=== PATIENT | male | born 1935 | race Caucasian/White ===

== ENCOUNTER 2016-04-08 00:01 | Outpatient (RCR) ==
[2014-09-27 06:50] VITALS: BMI 34.3
[2016-05-08 08:56] VITALS: BP 118/64
== END 2016-05-08 ==
LOC: CAR.REHAB 00:01
PROVIDERS: ATTEND Internal Medicine
DX: I25.10 Atherosclerotic heart disease of native coronary artery without angina pectoris (principal)
CPT/HCPCS: 93797

== ENCOUNTER 2016-05-09 07:20 | Outpatient (RCR) ==
[2014-09-27 06:50] VITALS: BMI 34.3
[2016-06-05 14:26] VITALS: BP 142/60
== END 2016-06-05 ==
LOC: CAR.REHAB 07:20
PROVIDERS: ATTEND Internal Medicine
DX: I25.10 Atherosclerotic heart disease of native coronary artery without angina pectoris (principal)
CPT/HCPCS: 93797

== ENCOUNTER 2016-06-06 09:18 | Outpatient (RCR) ==
[2014-09-27 06:50] VITALS: BMI 34.3
[2016-07-05 08:59] VITALS: BP 128/62
== END 2016-07-06 ==
LOC: CAR.REHAB 09:18
PROVIDERS: ATTEND Internal Medicine
DX: I25.10 Atherosclerotic heart disease of native coronary artery without angina pectoris (principal)
CPT/HCPCS: 93797

== ENCOUNTER 2016-07-07 07:00 | Outpatient (RCR) ==
[2014-09-27 06:50] VITALS: BMI 34.3
[2016-08-02 08:46] VITALS: BP 148/76
== END 2016-08-05 ==
LOC: CAR.REHAB 07:00
PROVIDERS: ATTEND Internal Medicine
DX: I25.10 Atherosclerotic heart disease of native coronary artery without angina pectoris (principal)
CPT/HCPCS: 93797

== ENCOUNTER 2016-08-06 08:53 | Outpatient (RCR) ==
[2014-09-27 06:50] VITALS: BMI 34.3
[2016-09-04 08:46] VITALS: BP 130/64
== END 2016-09-05 ==
LOC: CAR.REHAB 08:53
PROVIDERS: ATTEND Internal Medicine
DX: I25.10 Atherosclerotic heart disease of native coronary artery without angina pectoris (principal)
CPT/HCPCS: 93797

== ENCOUNTER 2016-09-06 06:38 | Outpatient (RCR) ==
[2014-09-27 06:50] VITALS: BMI 34.3
[2016-10-04 08:39] VITALS: BP 122/56
== END 2016-10-05 ==
LOC: CAR.REHAB 06:38
PROVIDERS: ATTEND Internal Medicine
DX: I25.10 Atherosclerotic heart disease of native coronary artery without angina pectoris (principal)
CPT/HCPCS: 93797

== ENCOUNTER 2016-10-08 07:34 | Outpatient (RCR) ==
[2014-09-27 06:50] VITALS: BMI 34.3
[2016-11-01 08:46] VITALS: BP 124/60
== END 2016-11-05 ==
LOC: CAR.REHAB 07:34
PROVIDERS: ATTEND Internal Medicine
DX: I25.10 Atherosclerotic heart disease of native coronary artery without angina pectoris (principal)
CPT/HCPCS: 93797

== ENCOUNTER 2016-11-06 06:43 | Outpatient (RCR) ==
[2014-09-27 06:50] VITALS: BMI 34.3
[2016-12-06 08:57] VITALS: BP 128/50
== END 2016-12-06 ==
LOC: CAR.REHAB 06:43
PROVIDERS: ATTEND Internal Medicine
DX: I25.10 Atherosclerotic heart disease of native coronary artery without angina pectoris (principal)
CPT/HCPCS: 93797

== ENCOUNTER 2016-12-07 08:24 | Outpatient (RCR) ==
[2014-09-27 06:50] VITALS: BMI 34.3
[2017-01-03 09:23] VITALS: BP 118/54
== END 2017-01-05 ==
LOC: CAR.REHAB 08:24
PROVIDERS: ATTEND Internal Medicine
DX: I25.10 Atherosclerotic heart disease of native coronary artery without angina pectoris (principal)
CPT/HCPCS: 93797

== ENCOUNTER 2016-12-18 07:28 | Day surgery (SDC) ==
[2014-09-27 06:50] VITALS: BMI 34.3
[2016-12-18] MEDS ORDERED: VERSED ONE (09:45)
[2016-12-18] MEDS ORDERED: DIPRIVAN 20 ML VIAL IVP ONE (09:45)
[2016-12-18 14:13] VITALS: BP 190/89; TEMP 96.1
--- NOTE | 2016-12-18 15:43 | OP ---
INDICATIONS FOR PROCEDURE: 81-year-old gentleman presents for endoscopy, evaluation of dysphagia. He has intermittent dysphagia mostly to solid foods. MEDICATIONS: SEE ANESTHESIA NOTES. PROCEDURE: ENDOSCOPY, ESOPHAGEAL BIOPSY, [place] DILATATION. REPORT: The risks, benefits, alternatives and limitations were discussed in detail with the patient. Informed consent was obtained. After adequate sedation was achieved, the video endoscope was introduced in the posterior pharynx and esophagus under direct vision and easily advanced down to the second portion of the duodenum. I then slowly withdrew. The duodenal mucosa appeared unremarkable as did the duodenal bulb. The antrum and body were relatively unremarkable. The scope was retroflexed to look at the cardia and fundus which was unremarkable. The scope was anteflexed and withdrawn back through the esophagus. At the GE junction there was some scarring and mild to moderate stricturing. Biopsies were obtained from the GE junction for histological review. The remaining esophagus appeared unremarkable. I then advanced the scope back down the gastric lumen, I placed a guidewire. Over the guidewire I easily advanced a 54 [place] Prydeinig dilator. The entire esophagus was dilated. I met no resistance. The patient tolerated the procedure well with stable vital signs and pulse oximetry throughout. IMPRESSION: 1. DISTAL ESOPHAGEAL STRICTURE DILATED ABOVE. RECOMMENDATIONS: 1. Await esophageal biopsies. 2. Strict reflux precautions. 3. Advised him to make sure he cuts and chews his food well and eats slowly. He should also drink plenty of fluids with his medications. 4. Will see him back in the office as needed. CC: DR. DELROY CHILDRESS
== END 2016-12-18 11:35 | disposition home or self-care (01) ==
LOC: SURG 07:28
PROVIDERS: ATTEND Internal Medicine Gastroenterology
DX: R13.10 Dysphagia, unspecified (principal); D13.1 Benign neoplasm of stomach; K22.2 Esophageal obstruction; K21.0 Gastro-esophageal reflux disease with esophagitis

== ENCOUNTER 2017-02-06 07:35 | Outpatient (RCR) ==
[2014-09-27 06:50] VITALS: BMI 34.3
[2017-03-07 09:01] VITALS: BP 124/66
== END 2017-03-07 ==
LOC: CAR.REHAB 07:35
PROVIDERS: ATTEND Internal Medicine
DX: I25.10 Atherosclerotic heart disease of native coronary artery without angina pectoris (principal)
CPT/HCPCS: 93797

== ENCOUNTER 2017-02-28 16:45 | Emergency (ER) ==
[2017-02-28] MEDS ORDERED: TETANUS DIPHTHERIA TOXOIDS IM ONE (16:48)
[2017-02-28 16:51] VITALS: BP 179/97; TEMP 98.1; BMI 32.9
--- NOTE | 2017-02-28 17:17 | CT ---
EXAM: CT head without contrast. HISTORY: Fall. PROCEDURE: Contiguous axial CT images of the head without contrast with coronal and sagittal reforma ts. FINDINGS: There is diffuse cerebral atrophy. The ventricles and basal cisterns are normal in size a nd configuration. No evidence of mass or midline shift. No intracranial hemorrhage or evidence of l arge vessel infarct. No extra-axial fluid collection. There are chronic small vessel ischemic oden es in the white matter. The paranasal sinuses and mastoid air cells are well-aerated. There is a fro ntal scalp hematoma. No skull fracture. Impression: No intracranial hemorrhage or skull fracture. Frontal scalp hematoma. Chronic small vessel ischemic changes. Diffuse cerebral atrophy.
--- NOTE | 2017-02-28 17:21 | CT ---
EXAM: CT of the face and orbits without contrast. HISTORY: Fall. PROCEDURE: Contiguous axial CT images of the face and orbits without contrast with coronal and sagit tavo reformats. FINDINGS: The bones are intact with no evidence of fracture. The temporomandibular joints are mainta ined. The orbits are normal in appearance. The globes are intact and symmetric. No post-septal abno rmality. There is a frontal scalp hematoma. There is minimal mucosal thickening in the paranasal sin uses. Impression: No evidence of fracture. Frontal scalp hematoma. Paranasal sinusitis.
--- NOTE | 2017-02-28 17:34 | ED.PDOC ---
General ED Provider: Dr. PRAMOD MOSQUEDA-ER Chief Complaint: Fall Stated Complaint: i tripped over a stool Time Seen by Physician: 16:50 Mode of Arrival: Walk-In Information Source: Patient Exam Limitations: No limitations Primary Care Provider: KALYAN POTTS Nursing and Triage Documentation Reviewed and Agree: Yes Skin Complaint Exam - Skin/Soft Tissue Complaint/Exam Onset/Duration: 30 min ago Symptoms Are: Still present Initial Severity: Mild Current Severity: Mild Location: face Character: Reports: Painful Aggravating: Reports: None Alleviating: Reports: None Associated Signs and Symptoms: Reports: Bruising, Tenderness. Denies: Fever, Chills, Itching, Drainage, Red streaks, Joint swelling Related History: Reports: Recent trauma Related Surgical History: Reports: None Recent Exposure to Others w/Similar Symptoms: No Skin Findings: Present: Other Joint Tenderness Present: No Differential Diagnoses: Other Review of Systems - Review Of Systems Constitutional: Reports: No symptoms Eyes: Reports: No symptoms Ears, Nose, Mouth, Throat: Reports: No symptoms Respiratory: Reports: No symptoms Cardiac: Reports: No symptoms GI: Reports: No symptoms : Reports: No symptoms Musculoskeletal: Reports: No symptoms Skin: Reports: Bruising, Other Neurological: Reports: No symptoms Endocrine: Reports: No symptoms Hematologic/Lymphatic: Reports: No symptoms All Other Systems: Reviewed and Negative Past Medical History - Past Medical History Previously Healthy: Yes Endocrine: Reports: Dyslipidemia Cardiovascular: Reports: CAD, Hypertension Respiratory: Reports: None Hematological: Reports: None Gastrointestinal: Reports: None Genitourinary: Reports: None Neuro/Psych: Reports: None Musculoskeletal: Reports: Other Cancer: Reports: None - Surgical History General Surgical History: Reports: CABG - Family History Family History: Reports: Unknown - Social History Smoking Status: Former smoker Hx Substance Use: No Alcohol Screening: Occasionally - Immunizations Tetanus Shot up to Date: No Physical Exam - Physical Exam Appearance: Well-appearing, No pain distress, Well-nourished Pain Distress: Mild Eyes: MARIA ISABEL ENT: Ears normal, Nose normal, Oropharynx normal Neck: Supple Respiratory: Airway patent, Breath sounds clear, Breath sounds equal, Respirations nonlabored Cardiovascular: RRR, Pulses normal, No rub, No murmur GI/: Soft, Nontender, No masses, Bowel sounds normal, No Organomegaly Musculoskeletal: Normal strength, ROM intact, No edema, No calf tenderness Skin: Warm, Dry, Normal color (noted abrasions over face ) Neurological: Sensation intact, Motor intact, Reflexes intact, Cranial nerves intact, Alert, Oriented Psychiatric: Affect appropriate, Mood appropriate Interpretation - Radiology Interpretation Radiology Interpretation By: Radiologist Radiology Results: Negative Exam Interpreted: CT Scan Critical Care Note - Critical Care Note Total Time (mins): 0 Course - Course Orders, Labs, Meds: Orders Category Date Time Status Mupirocin [Bactroban] MEDS 02/28/17 17:38 Stat 1 applic TP ONCE STA Tetanus, Diphtheria Tox,Adult [Tetanus Diphtheria MEDS 02/28/17 16:48 Discontinued Toxoids] 0.5 ml IM .ONCE ONE CT CERVICAL SPINE W/O CONTRAST Stat RADS 02/28/17 16:[address] HEAD W/O CONTRAST Stat RADS 02/28/17 16:[address] MAXILLOFACIAL W/O CONTRAST Stat RADS 02/28/17 16:47 Completed Medications Discontinued Medications Generic Name Dose Route Start Last Admin Trade Name Freq PRN Reason Stop Dose Admin Tetanus/Diphtheria Toxoids 0.5 ml 02/28/17 16:48 02/28/17 17:14 Tetanus Diphtheria Toxoids IM 02/28/17 16:49 0.5 ml .ONCE ONE Administration Vital Signs: Temp Pulse Resp BP Pulse Ox 02/28/17 16:46 98.1 F 80 20 179/97 H 93 L Departure - Departure Time of Disposition: 17:39 Disposition: HOME SELF-CARE Discharge Problem: Multiple contusions Abrasion head Qualifiers: Encounter type: initial encounter Qualified Code(s): S00.91XA - Abrasion of unspecified part of head, initial encounter Instructions: Abrasion (ED) Condition: Good Pt referred to PMD for follow-up: Yes Additional Instructions: keep clean and dry--bactroban ointment apply bid till healed-- Allergies/Adverse Reactions: Allergies No Known Allergies Allergy (Verified 02/28/17 16:53) Home Medications: Ambulatory Orders Clopidogrel Bisulfate [Plavix] 75 mg PO DAILY 06/15/13 Fenofibrate [Tricor] 160 mg PO DAILY 06/15/13 Isosorbide Dinitrate 30 mg PO QID 06/15/13 Aspirin [Aspirin EC] 325 mg PO DAILYWM 09/27/14 Cilostazol 50 mg PO BID 09/27/14 Pravastatin Sodium [Pravachol] 80 mg PO DAILY 09/27/14 Valsartan [Diovan] 40 mg PO DAILY 09/27/14 Carvedilol [Coreg] 12.5 mg PO BID 12/18/16 Metoprolol Tartrate [Lopressor] 100 mg PO DAILY 12/18/16 [place]-3 Fatty Acids/Fish Oil [Fish Oil 1,000 mg Capsule] 2 cap PO BID 12/18/16 Disposition Discussed With: Patient, Family
--- NOTE | 2017-02-28 17:37 | CT ---
EXAM: CT of the cervical spine without contrast. HISTORY: Fall. PROCEDURE: Contiguous axial CT images of the cervical spine without contrast with coronal and sagitt al reformats. FINDINGS: There is 0.25 cm anterolisthesis of C4 on C5. There is normal alignment of the other cervi khadar vertebral bodies and facets. The vertebral body heights are maintained. There is multilevel dis c space narrowing. There are small posterior osteophytes at multiple levels of the cervical spine. There is multilevel facet arthropathy. The C1-2 relationship is maintained. No prevertebral soft ti ssue abnormality. Impression: No evidence of fracture. 0.25 cm anterolisthesis of C4 on C5 secondary to facet arthropathy. Multilevel degenerative changes as described.
[2017-02-28] MEDS ORDERED: BACTROBAN TP STA (17:38)
[2017-02-28] MEDS ORDERED: BACTROBAN OINTMENT 1 GRAM APPLICATOR TP ONE (17:43)
== END 2017-02-28 17:50 | disposition home or self-care (01) ==
LOC: ED 16:45
DX: S00.91XA Abrasion of unspecified part of head, initial encounter (principal); S00.83XA Contusion of other part of head, initial encounter; W22.8XXA Striking against or struck by other objects, initial encounter
CPT/HCPCS: 90471; 90714; 99283

== ENCOUNTER 2017-03-08 07:08 | Outpatient (RCR) ==
[2017-04-04 08:51] VITALS: BP 138/56
== END 2017-04-07 ==
LOC: CAR.REHAB 07:08
PROVIDERS: ATTEND Internal Medicine
DX: I25.10 Atherosclerotic heart disease of native coronary artery without angina pectoris (principal)
CPT/HCPCS: 93797

== ENCOUNTER 2017-04-09 06:44 | Outpatient (RCR) ==
[2017-05-02 08:57] VITALS: BP 122/60
== END 2017-05-08 ==
LOC: CAR.REHAB 06:44
PROVIDERS: ATTEND Internal Medicine
DX: I25.10 Atherosclerotic heart disease of native coronary artery without angina pectoris (principal)
CPT/HCPCS: 93797

== ENCOUNTER 2017-05-09 06:44 | Outpatient (RCR) ==
[2017-06-04 08:59] VITALS: BP 132/68
== END 2017-06-05 ==
LOC: CAR.REHAB 06:44
PROVIDERS: ATTEND Internal Medicine
DX: I25.10 Atherosclerotic heart disease of native coronary artery without angina pectoris (principal)
CPT/HCPCS: 93797

== ENCOUNTER 2017-06-06 06:35 | Outpatient (RCR) ==
[2017-07-04 08:55] VITALS: BP 122/64
== END 2017-07-06 ==
LOC: CAR.REHAB 06:35
PROVIDERS: ATTEND Internal Medicine
DX: I25.10 Atherosclerotic heart disease of native coronary artery without angina pectoris (principal)
CPT/HCPCS: 93797

== ENCOUNTER 2017-06-11 06:30 | Outpatient (CLI) | END 2017-06-11 06:31 | disposition home or self-care (01) | LOC: CAR 06:30 | PROVIDERS: ATTEND Internal Medicine | DX: R06.02 Shortness of breath (principal); I25.10 Atherosclerotic heart disease of native coronary artery without angina pectoris; I25.2 Old myocardial infarction | CPT/HCPCS: 93005; 93010 ==

== ENCOUNTER 2017-06-19 10:30 | Outpatient (CLI) | END 2017-06-19 10:31 | disposition home or self-care (01) | LOC: CAR 10:30 | PROVIDERS: ATTEND Internal Medicine | DX: I35.0 Nonrheumatic aortic (valve) stenosis (principal); I25.10 Atherosclerotic heart disease of native coronary artery without angina pectoris ==

== ENCOUNTER 2017-07-08 08:32 | Outpatient (RCR) ==
[2017-08-01 08:22] VITALS: BP 118/58
== END 2017-08-05 23:59 ==
LOC: OUTPT 08:32
PROVIDERS: ATTEND Internal Medicine
DX: I25.10 Atherosclerotic heart disease of native coronary artery without angina pectoris (principal)
CPT/HCPCS: 93797

== ENCOUNTER 2017-08-06 06:48 | Outpatient (RCR) ==
[2017-08-29 08:55] VITALS: BP 122/58
[2017-09-03 10:06] VITALS: BMI 34.4
== END 2017-09-05 23:59 ==
LOC: CAR.REHAB 06:48
PROVIDERS: ATTEND Internal Medicine
DX: I25.10 Atherosclerotic heart disease of native coronary artery without angina pectoris (principal)
CPT/HCPCS: 93797

== ENCOUNTER 2017-08-15 09:10 | Outpatient (CLI) | END 2017-08-15 09:11 | disposition home or self-care (01) | LOC: CAR 09:10 | PROVIDERS: ATTEND Internal Medicine | DX: I48.92 Unspecified atrial flutter (principal); Z95.1 Presence of aortocoronary bypass graft | CPT/HCPCS: 93005; 93010; 93227 ==

== ENCOUNTER 2017-09-03 09:20 | Inpatient (IN) | payer OTHER ==
[2017-09-03 10:06] VITALS: BMI 34.4
[2017-09-03] MEDS ORDERED: ATROPINE SULFATE PFS IVP PRN (10:08)
[2017-09-03] MEDS ORDERED: VISTARIL INJ IM PRN (10:08)
[2017-09-03] MEDS ORDERED: NITROSTAT SL PRN (10:08)
[2017-09-03] MEDS ORDERED: TYLENOL PO PRN (10:08)
[2017-09-03] MEDS ORDERED: MORPHINE 4 MG/ML VIAL IVP PRN (10:08)
[2017-09-03] MEDS ORDERED: NON-FORMULARY MEDICATION (Isosorbide Dinitrate [Isosorbide Dinitrate] 30 MG) PO SCH (11:00)
[2017-09-03] MEDS: LASIX IVP SCH (11:37)
[2017-09-03] MEDS: K-DUR PO SCH (11:37)
[2017-09-03] MEDS: OMEGA-3 FISH OIL PO SCH ×2 (11:37→17:19)
[2017-09-03] MEDS ORDERED: NON-FORMULARY MEDICATION (Omega-3 Fatty Acids/Fish Oil [Fish Oil 1,000 Mg Capsule] 1 CAP) PO SCH (12:00)
[2017-09-03] MEDS: IMDUR PO SCH ×3 (12:12→21:37)
--- NOTE | 2017-09-03 13:39 | DI ---
EXAM: Single view of the chest. History: Short of breath Comparison: Chest radiograph 06/28/2013, chest CT 09/27/2014 Findings: Heart is mildly enlarged. Sternotomy wires again seen. No focal consolidation. No appre ciable pleural fluid and no pneumothorax. No acute osseous abnormalities. Impression: Mild cardiomegaly without acute disease in the chest. No change compared to the prior s tudy.
[2017-09-03] MEDS: COREG PO SCH (17:20)
[2017-09-03] MEDS ORDERED: CILOSTAZOL 50 MG PO SCH (21:00)
[2017-09-03] MEDS: PLETAL PO SCH (21:37)
[2017-09-03] MEDS: ELIQUIS PO SCH (21:38)
[2017-09-04] MEDS: LASIX IVP SCH (06:04)
[2017-09-04] MEDS ORDERED: NON-FORMULARY MEDICATION (Metoprolol Tartrate [Lopressor] 100 MG) PO SCH (09:00)
[2017-09-04] MEDS ORDERED: NON-FORMULARY MEDICATION (Pravastatin Sodium [Pravachol] 80 MG) PO SCH (09:00)
[2017-09-04] MEDS ORDERED: VALSARTAN 40 MG PO SCH (09:00)
[2017-09-04] MEDS ORDERED: DIOVAN PO SCH (09:00)
[2017-09-04] MEDS: IMDUR PO SCH ×4 (09:24→20:38)
[2017-09-04] MEDS: K-DUR PO SCH (09:24)
[2017-09-04] MEDS: COREG PO SCH ×2 (09:24→17:55)
[2017-09-04] MEDS: PRAVACHOL PO SCH (09:24)
[2017-09-04] MEDS: LOPRESSOR PO SCH (09:25)
[2017-09-04] MEDS: PLETAL PO SCH ×2 (09:25→20:39)
[2017-09-04] MEDS: TRIGLIDE PO SCH (09:26)
[2017-09-04] MEDS: ELIQUIS PO SCH ×2 (09:27→20:40)
[2017-09-04] MEDS: DIOVAN PO SCH (09:39)
[2017-09-04] MEDS: OMEGA-3 FISH OIL PO SCH ×2 (12:21→16:20)
--- NOTE | 2017-09-04 14:05 | PCM.PROG ---
Attending Provider: ATTENDING PROVIDER: Dr. KALYAN POTTS This patient is seen with Charlene Weeks, Nurse Practitioner. DATE OF SERVICE: 09/04/17 SUBJECTIVE: This 82 year old WHITE/ M was hospitalized 09/03/17. The patient is sitting in the chair, alert. He is down 5 lbs from yesterday. Leg edema improved. Less shortness of breath. REVIEW OF SYSTEMS: CONSTITUTIONAL: No night sweats. No fatigue, malaise, lethargy. No fever or chills. HEENT: Eyes: No visual changes. No eye pain. No eye discharge. ENT: No runny nose. No epistaxis. No sinus pain. No odynophagia. No congestion. RESPIRATORY: No cough, no congestion. No hemoptysis. Shortness of breath with exertion. CARDIOVASCULAR: No angina symptoms. No CHF symptoms. No atypical chest pain for CAD. No palpitations. No orthopnea.. GASTROINTESTINAL: No abdominal pain. No nausea or vomiting. No diarrhea or constipation. No hematemesis. No hematochezia. GENITOURINARY: No urgency. No frequency. No dysuria. No hematuria. No obstructive symptoms. No discharge. No pain. No significant abnormal bleeding. MUSCULOSKELETAL: Leg edema. No musculoskeletal pain; no joint swelling. NEUROLOGICAL: Awake, alert, oriented to time, place and person. No headache. No neck pain. No syncope. No seizures. No dizziness. PSYCHIATRIC: Not anxious. No depression. No suicidal thoughts. No homicidal thoughts. SKIN: No rash. No lesions. No wounds. ENDOCRINE: Weight loss of 5 lbs. HEMATOLOGIC/LYMPHATIC: No anemia. No purpura. No petechiae. No prolonged or excessive bleeding. No palpable lymph nodes. PHYSICAL EXAMINATION: GENERAL: The patient is awake, alert and oriented, lying in bed in no distress. VITAL SIGNS: Temperature 97.9 F, Pulse 72, Respiratory Rate 20, BP 155/82, Pulse Ox 93% HEENT: Head normocephalic, atraumatic. Eyes: Extraocular muscles are intact. Pupils are equal, round and reactive to light and accommodation. Ears: No lesions. Nose appeared normal. Throat: No exudate or erythema. NECK: Supple. No JVD, no carotid bruit. No lymphadenopathy or thyromegaly. LUNGS: Diminished breath sounds. Clear to auscultation. Percussion note normal. Chest symmetrical. HEART: Irregular heart rate. S1, S2, no S3. No murmurs. No cyanosis or clubbing. No ascites. Pulses: Dorsalis pedis and posterior tibial pulses +1 to +2 both sides. ABDOMEN: Soft. Non-tender. Bowel sounds active. No CVA tenderness. No mass felt. EXTREMITIES: +1 bilateral leg edema. Full range of motion of all extremities, equal. NEUROLOGIC: No focal deficit. Cranial nerves II through XII are grossly intact. No headache, no double vision or headache. SKIN: Not dry. Intact. Turgor-normal. LYMPHATIC: No palpable lymph nodes/no lymphedema. MUSCULOSKELETAL: Normal joints with no swelling. Muscle tone is normal. LAB REVIEW: 09/03/17 10:50 09/03/17 10:50 09/03/17 18:36: Total Creatine Kinase 61, Troponin I < 0.0100 09/03/17 11:30: Urine Color Yellow, Urine Clarity Clear, Urine pH 7.0, Ur Specific [place] 1.010, Urine Protein Negative, Urine Glucose (UA) Negative, Urine Ketones Negative, Urine Blood Negative, Urine Nitrite Negative, Urine Bilirubin Negative, Urine Urobilinogen 0.2, Ur Leukocyte Esterase Negative 09/03/17 10:50: Sodium 136, Potassium 4.9, Chloride 103, Carbon Dioxide 24, Anion Gap 13.9, BUN 11, Creatinine 1.14 H, Estimated GFR (MDRD) 62.00, BUN/ Creatinine Ratio 9.64, Glucose 100, Calcium 9.3, Total Bilirubin 0.6, AST 27, ALT 19, Alkaline Phosphatase 34 L, Total Creatine Kinase 63, Troponin I < 0.0100 , Total Protein 6.1, Albumin 3.2 L, Globulin 2.9, Albumin/Globulin Ratio 1.10, TSH 3.913, Free T4 1.00 09/03/17 10:50: WBC 4.54, RBC 3.64 L, Hgb 11.1 L, Hct 34.3 L, MCV 94.2 H, MCH 30.5, MCHC 32.4, RDW Coeff of Yaritza 14.3, Plt Count 209, Immature Gran % (Auto) 0.2, Neut % (Auto) 55.4, Lymph % (Auto) 20.9, [place] % (Auto) 16.5 H, Eos % (Auto ) 6.6, Baso % (Auto) 0.4, Immature Gran # (Auto) 0.0, Neut # (Auto) 2.5, Lymph # (Auto) 1.0, [place] # (Auto) 0.8, Eos # (Auto) 0.3, Baso # (Auto) 0.0 09/03/17 10:50: B-Natriuretic Peptide 466 H ASSESSMENT: 1. ACUTE CHF 2. LEG EDEMA 3. ATRIAL FIB/FLUTTER 4. CORONARY ARTERY DISEASE 5. HYPERTENSION 6. OBESITY PLAN: 1. CBC, CMP today 2. IV Lasix today 3. Elevate legs Plan and coordination of the patient's care discussed in the presence of Forklift Truck Operator and nurse. CONDITION: Stable SCRIBED BY: Sarah Beth GARBERist scribed while in presence of service performed by Dr. Potts/Charlene Weeks APRN on 09/04/17 ([id number])
[2017-09-05] MEDS: LASIX IVP SCH (05:42)
--- NOTE | 2017-09-05 09:37 | CM.DICTOOL ---
ADMISSION: 09/03/17 09:20 DISCHARGE: 09/05/17 FINAL DIAGNOSIS CHF A-FIB/A/FLUTTER LEG EDEMA HISTORY OF: CATARACT SURGERY - DATES UNKNOWN DYSLIPIDEMIA HYPERTENSION AMI - 89 BYPASS SURGERY 20 YEARS AGO OSTEOARTHRITIS AAA REPAIR - DATE UNKNOWN LEVEF 45% CKD STAGE 3 LVH GERD PAD WITH CLAUDICATION LAST VITALS Temp Pulse Resp BP Pulse Ox 98.2 F 84 20 144/97 H 96 09/05/17 05:29 09/05/17 05:29 09/05/17 05:29 09/05/17 05:29 09/05/17 05:29 TAKE THESE MEDICATIONS AT HOME Acetaminophen (Tylenol) 650 mg PO Q4H PRN PRN Reason: Headache Apixaban (Eliquis) 5 mg PO BID [facility] Last Admin: 09/04/17 20:40 Dose: 5 mg Carvedilol (Coreg) 12.5 mg PO BIDWM [facility] Last Admin: 09/04/17 17:55 Dose: 12.5 mg Cilostazol (Pletal) 50 mg PO BID [facility] Last Admin: 09/04/17 20:39 Dose: 50 mg Fenofibrate (Triglide) 160 mg PO DAILY [facility] Last Admin: 09/04/17 09:26 Dose: 160 mg Fish Oil ([place]-3 Fish Oil) 1,000 mg PO 1200,1700 [facility] Last Admin: 09/04/17 16:20 Dose: 1,000 mg Furosemide (Lasix) 20 mg IVP QDAC [facility] Last Admin: 09/05/17 05:42 Dose: 20 mg Isosorbide Mononitrate (Imdur) 30 mg PO QID [facility] Last Admin: 09/04/17 20:38 Dose: 30 mg Metoprolol Tartrate (Lopressor) 100 mg PO DAILY [facility] Last Admin: 09/04/17 09:25 Dose: 100 mg Potassium Chloride (K-Dur) 20 meq PO DAILYWM [facility] Last Admin: 09/04/17 09:24 Dose: 20 meq Pravastatin Sodium (Pravachol) 80 mg PO DAILY [facility] Last Admin: 09/04/17 09:24 Dose: 80 mg Valsartan (Diovan) 40 mg PO DAILY [facility] Last Admin: 09/04/17 09:39 Dose: 40 mg LASIX 20MG PO DAILY K-TAB 10MEQ PO DAILY NEW MEDICATIONS: 1. LASIX 20MG TAKE 1 TABLET DAILY. START TOMORROW 09/06/17. 2. K-TAB 10MEQ TAKE 1 TABLET DAILY. START TOMORROW 09/06/17. ALLERGIES No Known Allergies Allergy (Verified 02/28/17 16:53) DISCONTINUED MEDICATIONS NONE NEW PRESCRIPTIONS: 1. LASIX 20MG TAKE 1 TABLET DAILY. START TOMORROW 09/06/17. 2. K-TAB 10MEQ TAKE 1 TABLET DAILY. START TOMORROW 09/06/17. SMOKING: N/A DISEASE SPECIFIC EDUCATION: CHF WEIGHT MONITORING MEDICATIONS DIET ACTIVITY LAB REVIEW: 09/05/17 04:45 09/05/17 04:45 09/05/17 04:45: Sodium 138, Potassium 4.4, Chloride 101, Carbon Dioxide 24, Anion Gap 17.4, BUN 15, Creatinine 1.24 H, Estimated GFR (MDRD) 56.00, BUN/ Creatinine Ratio 12.09, Glucose 91, Calcium 10.1, Total Bilirubin 0.7, AST 27, ALT 19, Alkaline Phosphatase 36 L, Total Protein 6.8, Albumin 3.3 L, Globulin 3.5, Albumin/Globulin Ratio 0.94 09/05/17 04:45: WBC 4.92, RBC 3.91 L, Hgb 11.8 L, Hct 36.5 L, MCV 93.4, MCH 30.2 , MCHC 32.3, RDW Coeff of Yaritza 14.1, Plt Count 258, Immature Gran % (Auto) 0.2, Neut % (Auto) 48.0, Lymph % (Auto) 27.2, [place] % (Auto) 16.9 H, Eos % (Auto) 6.9 , Baso % (Auto) 0.8, Immature Gran # (Auto) 0.0, Neut # (Auto) 2.4, Lymph # ( Auto) 1.3, [place] # (Auto) 0.8, Eos # (Auto) 0.3, Baso # (Auto) 0.0 PLAN: CONTINUE HOME MEDICATIONS PER NURSING SHEET. NEW MEDICATIONS: 1. LASIX 20MG TAKE 1 TABLET DAILY. START TOMORROW 09/06/17. 2. K-TAB 10MEQ TAKE 1 TABLET DAILY. START TOMORROW 09/06/17. DIET: CARDIAC DIET ACTIVITY: GRADUALLY RESUME ACTIVITY. ELEVATE LEGS MUCH POSSIBLE. WATCH FOR INCREASED SWELLING IN LEGS. WEIGH DAILY WEARING THE SAME AMOUNT OF CLOTHING AND AT THE SAME TIME OF DAY. KEEP RECORD. FOR WEIGHT GAIN OF 3-5 POUNDS IN 1 DAY, CALL DR. POTTS. FOLLOW UP WITH DR. POTTS ON SaturdaySeptember AT 915AM. PATIENT IS A DNR. SITTING UP IN CHAIR. ALERT AND ORIENTED X 4. More. PASCUAL ROMERO INTO SEE PATIENT. PATIENT'S SPOUSE AND SON AT BEDSIDE. PATIENT STATES FEELING BETTER AND READY TO GO HOME. PLAN OF CARE DISCUSSED PER Deysi GARNER APRN. PATIENT VERBALIZES UNDERSTANDING AND AGREEMENT. BLOOD PRESSURE SLIGHTLY ELEVATED THIS AM. DENIES HEADACHE OR DISCOMFORT. HAS BEEN AFEBRILE. POX 96% ON ROOM AIR. HEART TONES ARE IRREGULAR WITH TELEMETRY REVEALING A-FIB VS A-FLUTTER AND A-FIB WITH BBB. NO C/ O PAIN OR DISCOMFORT. LUNGS ARE CLEAR. NO COUGH NOTED. DYSPNEA WITH ACTIVITY. ABDOMEN IS SOFT, NON-TENDER WITH BOWEL SOUNDS POSITIVE IN ALL 4 QUADS. PEDAL PULSES WITHOUT EDEMA. HAS SALINE LOCK IN LEFT HAND SITE IS CLEAR. IS INDEPENDENT WITH ACTIVITY OF DAILY LIVING. DR. KALYAN POTTS MD Deysi GARNER APRN
[2017-09-05] MEDS: PRAVACHOL PO SCH (09:40)
[2017-09-05] MEDS: COREG PO SCH (09:40)
[2017-09-05] MEDS: TRIGLIDE PO SCH (09:40)
[2017-09-05] MEDS: PLETAL PO SCH (09:41)
[2017-09-05] MEDS: DIOVAN PO SCH (09:41)
[2017-09-05] MEDS: LOPRESSOR PO SCH (09:41)
[2017-09-05] MEDS: K-DUR PO SCH (09:41)
[2017-09-05] MEDS: ELIQUIS PO SCH (09:42)
[2017-09-05] MEDS: IMDUR PO SCH (09:42)
[2017-09-05 10:37] VITALS: BP 115/66; TEMP 97.3
--- NOTE | 2017-09-05 11:20 | HP ---
DATE OF SERVICE: 09/03/17 REASON FOR HOSPITALIZATION/HISTORY OF PRESENT ILLNESS: Weight gain 10 pounds in 2-3 weeks. Shortness of breath with minimal exertion x 2 weeks. Leg edema x2 weeks. No symptoms of coronary insufficiency. PAST MEDICAL HISTORY: Dyslipidemia Hypertension Osteoarthritis Chronic kidney disease LVH GERD PAD with Claudication PAST SURGICAL HISTORY: Cardiac Stents AAA repair Cataract surgery REVIEW OF SYSTEMS: CONSTITUTIONAL: No fever, no fatigue. HEENT: No sinus drainage, no sore throat. RESPIRATORY: No cough, no congestion. CARDIOVASCULAR: No atypical chest pain for coronary artery disease. No angina , CHF symptoms, palpitations or shortness of breath. GASTROINTESTINAL: No melena or abdominal pain. No GERD. GENITOURINARY: No hematuria, no prostatism, no polyuria. COSMETIC SURGEON: No blackout, no dizziness, no headache, no double vision. MUSCULOSKELETAL: No osteoarthritis pain, no joint swelling. ENDOCRINE: No weight loss, no weight gain. SKIN: Not dry, no rash. PSYCHIATRIC: Not anxious, no depression, no suicidal thoughts, no homicidal thoughts. SOCIAL HISTORY: Marital Status: . Alcohol Usage: No. Tobacco Usage: No. FAMILY HISTORY: Cardiac disorders MEDICATIONS: Eliquis 5mg PO twice a day Coreg 12.5mg twice daily Imdur 30 four times daily Diovan 40mg PO daily Fenofibrate 160mg PO daily Pravastatin 80mg PO daily Pletal 50mg PO twice a day Fish Oil 1000 take two tablet twice a day ALLERGIES: No known allergies PHYSICAL EXAMINATION: V/S: Pulse 70, blood pressure 120/70, pulse ox 93.7%. 5'6", 216.2 pounds, BMI 34.9 GENERAL APPEARANCE: Oriented times three. HEENT: Normal. NECK: 1cm JVP, no bruits. RESPIRATORY: Creps right base CARDIOVASCULAR: S1, S2, questionable S3, no murmurs. No cyanosis, clubbing. No ascites. GI/ABDOMEN: No tenderness. Bowel sounds are active. EXTREMITIES: +2 pitting edema, pulses +1, equal. COSMETIC SURGEON: Deep tendon reflexes, sensory, motor and gait all normal. RECTAL: EGD 12/18/16/PROSTATE: 10/22 (0.2) . LABS: Sodium 136, potassium 4.9, BUN 11, creatinine 1.14, glucose 100, GFR 62, total bilirubin 0.68, AST 27, ALT 19, total protein 6.1, Albumin 3.2, Globulin 2.9, Free T4 1, TSH 3.9. Chest x-ray shows mild cardiomegaly without acute disease. No change compared to prior stay. Urine is normal, BNP 446, WBC 4.5, hgb 11.1, hct 34.3, plt count 209. ASSESSMENT: 1. CHF 2. Atrial flutter new onset 3 weeks 3. CAD with [place] 87 4. CABG 2000/ ejection fraction 45% 07/23 5. PAD with claudication 6. Chronic kidney disease stage 3 7. LVH 8. Dyslipidemia 9. History of hypertension 10.GERD 11.Generalized Osteoarthritis PLAN: 1. Regular 2. Routine Telemetry orders 3. Elevate legs 4. Daily weigh her 5. Lasix 20mg Iv now and QAM 6. K tab 20meq Po daily 7. BNP, T4 TSH 8. Continue all home medications 9. Off Plavix and ASA TIME SPENT: More than 70 minutes. MTDD
--- NOTE | 2017-09-05 13:02 | PCM.PROG ---
Attending Provider: ATTENDING PROVIDER: Dr. KALYAN POTTS This patient is seen with Charlene Weeks, Nurse Practitioner. DATE OF SERVICE: 09/05/17 SUBJECTIVE: This 82 year old WHITE/ M was hospitalized 09/03/17. The patient is sitting in chair, alert. He is no longer short of breath. Leg edema has resolved. He has been up and about walking around. He is eating well, states he is ready to go home. REVIEW OF SYSTEMS: CONSTITUTIONAL: No night sweats. No fatigue, malaise, lethargy. No fever or chills. HEENT: Eyes: No visual changes. No eye pain. No eye discharge. ENT: No runny nose. No epistaxis. No sinus pain. No odynophagia. No congestion. RESPIRATORY: No cough, no congestion. No hemoptysis. No shortness of breath. CARDIOVASCULAR: No angina symptoms. No CHF symptoms. No atypical chest pain for CAD. No palpitations. No orthopnea.. GASTROINTESTINAL: No abdominal pain. No nausea or vomiting. No diarrhea or constipation. No hematemesis. No hematochezia. GENITOURINARY: No urgency. No frequency. No dysuria. No hematuria. No obstructive symptoms. No discharge. No pain. No significant abnormal bleeding. MUSCULOSKELETAL: No musculoskeletal pain; no joint swelling. NEUROLOGICAL: Awake, alert, oriented to time, place and person. No headache. No neck pain. No syncope. No seizures. No dizziness. PSYCHIATRIC: Not anxious. No depression. No suicidal thoughts. No homicidal thoughts. SKIN: No rash. No lesions. No wounds. ENDOCRINE: No unexplained weight loss. No weight gain. HEMATOLOGIC/LYMPHATIC: No anemia. No purpura. No petechiae. No prolonged or excessive bleeding. No palpable lymph nodes. PHYSICAL EXAMINATION: GENERAL: The patient is awake, alert and oriented, sitting in chair in no distress. VITAL SIGNS: Temperature 98.2 F, Pulse 84, Respiratory Rate 20, BP 144/97, Pulse Ox 96% HEENT: Head normocephalic, atraumatic. Eyes: Extraocular muscles are intact. Pupils are equal, round and reactive to light and accommodation. Ears: No lesions. Nose appeared normal. Throat: No exudate or erythema. NECK: Supple. No JVD, no carotid bruit. No lymphadenopathy or thyromegaly. LUNGS: Diminished breath sounds bilaterally. Clear to auscultation. Percussion note normal. Chest symmetrical. HEART: Regular heart rate. S1, S2, no S3. No murmurs. No cyanosis or clubbing. No ascites. Pulses: Dorsalis pedis and posterior tibial pulses +1 to +2 both sides. ABDOMEN: Soft. Non-tender. Bowel sounds active. No CVA tenderness. No mass felt. EXTREMITIES: No edema. Full range of motion of all extremities, equal. NEUROLOGIC: No focal deficit. Cranial nerves II through XII are grossly intact. No headache, no double vision or headache. SKIN: Not dry. Intact. Turgor-normal. LYMPHATIC: No palpable lymph nodes/no lymphedema. MUSCULOSKELETAL: Normal joints with no swelling. Muscle tone is normal. LAB REVIEW: 09/05/17 04:45 09/05/17 04:45 09/05/17 04:45: Sodium 138, Potassium 4.4, Chloride 101, Carbon Dioxide 24, Anion Gap 17.4, BUN 15, Creatinine 1.24 H, Estimated GFR (MDRD) 56.00, BUN/ Creatinine Ratio 12.09, Glucose 91, Calcium 10.1, Total Bilirubin 0.7, AST 27, ALT 19, Alkaline Phosphatase 36 L, Total Protein 6.8, Albumin 3.3 L, Globulin 3.5, Albumin/Globulin Ratio 0.94 09/05/17 04:45: WBC 4.92, RBC 3.91 L, Hgb 11.8 L, Hct 36.5 L, MCV 93.4, MCH 30.2 , MCHC 32.3, RDW Coeff of Yaritza 14.1, Plt Count 258, Immature Gran % (Auto) 0.2, Neut % (Auto) 48.0, Lymph % (Auto) 27.2, [place] % (Auto) 16.9 H, Eos % (Auto) 6.9 , Baso % (Auto) 0.8, Immature Gran # (Auto) 0.0, Neut # (Auto) 2.4, Lymph # ( Auto) 1.3, [place] # (Auto) 0.8, Eos # (Auto) 0.3, Baso # (Auto) 0.0 09/04/17 08:30: Sodium 138, Potassium 4.6, Chloride 100, Carbon Dioxide 27, Anion Gap 15.6, BUN 10, Creatinine 1.18 H, Estimated GFR (MDRD) 59.00, BUN/ Creatinine Ratio 8.47, Glucose 95, Calcium 10.1, Total Bilirubin 0.8, AST 26, ALT 20, Alkaline Phosphatase 37 L, Total Protein 6.6, Albumin 3.4, Globulin 3.2 , Albumin/Globulin Ratio 1.06 09/04/17 08:30: WBC 5.05, RBC 3.85 L, Hgb 11.8 L, Hct 36.1 L, MCV 93.8, MCH 30.6 , MCHC 32.7, RDW Coeff of Yaritza 14.3, Plt Count 237, Immature Gran % (Auto) 0.2, Neut % (Auto) 57.7, Lymph % (Auto) 19.6, [place] % (Auto) 15.8 H, Eos % (Auto) 6.1 , Baso % (Auto) 0.6, Immature Gran # (Auto) 0.0, Neut # (Auto) 2.9, Lymph # ( Auto) 1.0, [place] # (Auto) 0.8, Eos # (Auto) 0.3, Baso # (Auto) 0.0 ASSESSMENT: 1. ACUTE CHF 2. LEG EDEMA, RESOLVED 3. ATRIAL FIB/FLUTTER 4. CORONARY ARTERY DISEASE 5. HYPERTENSION 6. OBESITY PLAN: 1. Lasix 20 mg p.o. tomorrow 2. D/C IV Lasix 3. Potassium 10 mEq tomorrow 4. Possible d/c today 5. CHF discussed in detail with the patient, low salt diet, keep legs elevated at rest, continue cardiac rehabilitation. The patient voiced understanding. Plan and coordination of the patient's care discussed in the presence of Tubing Tester and nurse. CONDITION: Stable SCRIBED BY: BECKY BUTLER Digital Content Specialist scribed while in presence of service performed by Dr. Potts/Charlene Weeks APRN on 09/05/17 ([id number])
--- NOTE | 2017-09-06 14:19 | PN ---
DATE OF VISIT: 09/04/17 Kenny Ho was seen examined with the nurse practitioner. The patient's condition is improved. He has lost a lot of fluid from breathing better. Less shortness of breath. The patient likely has fluid overload with congestive heart failure. I explained about congestive heart failure and the was in the room. PHYSICAL EXAMINATION: LUNGS: Decreased breath sounds. Good air entry. HEART: S1, S2, no S3. No JVP. CONDITION: Stable. Congestive heart failure education carried out. Extensive. ANNIKAD
--- NOTE | 2017-09-06 14:22 | PN ---
DATE OF VISIT: 09/05/17 Kenny Ho was hospitalized with congestive heart failure. The patient has lost 10 pounds. He is breathing better. No symptoms of CHF. The patient was seen and examined with the nurse practitioner. The patient was discharged home with Lasix and Potassium. FIOR
--- NOTE | 2017-09-06 14:24 | PN ---
09/03/17 LEVEL 5 09/04/17 INTERMEDIATE 09/05/17 DISCHARGE MTDD
--- NOTE | 2017-09-07 10:46 | DS ---
DATE OF SERVICE: 09/05/17 FINAL DIAGNOSIS: 1. CHF 2. ATRIAL FIBRILLATION/FLUTTER 3. LEG EDEMA 4. HISTORY OF CATARACT SURGERY, DATES UNKNOWN 5. DYSLIPIDEMIA 6. HYPERTENSION 7. AMI - 89 8. BYPASS SURGERY 20 YEARS AGO 9. OSTEOARTHRITIS 10. AAA REPAIR - DATE UNKNOWN 11. LEVEF 45% 12. CKD STAGE 3 13. LVH 14. GERD 15. PAD WITH CLAUDICATION DISCHARGE INSTRUCTIONS: Followup appointment with Dr. Jackson on September at 9:15 a.m.. MEDICATIONS AT DISCHARGE: Tylenol 650 mg p.o. q.4h p.r.n. Eliquis 5 mg p.o. b.i.d. LUKE Coreg 12.5 mg p.o.b.i.d. with meal LUKE Pletal 50 mg p.o. b.i.d. LUKE Triglide 160 mg p.o. daily LUKE Fish Oil 1000 mg p.o. 1200, 1700 LUKE Lasix 20 mg IVP q.d a.c. LUKE Imdur 30 mg p.o. q.i.d. LUKE Lopressor 100 mg p.o. daily LUKE K-Dur 20 mEq p.o. daily with meal LUKE Pravachol 80 mg p.o. daily LUKE Diovan 40 mg p.o. daily LUKE Lasix 20 mg p.o. daily K-Tab 10 mEq p.o. daily NEW PRESCRIPTIONS: Lasix 20 mg one tablet daily, start tomorrow 09/06/17 K-Tab 10 mEq one tablet daily, start tomorrow 09/06/17 DIET INSTRUCTIONS: Cardiac diet ACTIVITY: Gradually resume activity. Elevate legs as much as possible. Watch for increased swelling in legs. Weigh daily wearing the same amount of clothing and at the same time of day, keep record. For weight gain of 3 to 5 lbs in one day, call Dr. Jackson. SMOKING: N/A DISEASE SPECIFIC EDUCATION: CHF Weight monitoring Medications Diet Activity HOSPITAL COURSE: This is an 82-year-old white male with a long history of coronary artery disease who was seen in our office. He had coronary artery bypass about 20 years ago and also has a history of atrial fibrillation/flutter. He has been on Eliquis for some time. He presented to our office with worsening shortness of breath and leg edema. He was subsequently admitted for acute CHF, leg edema and shortness of breath. He was started on Lasix 20 mg IV daily as he has not been taking any Lasix at home and has been managed without diuretics. During his stay he has lost approximately 7 lbs. His leg edema has resolved. For the past 24 hours he has been up and and about walking around on his own without any shortness of breath. He does not require any oxygen this morning. His labs have all been good. Today on day of discharge, BUN 15, creatinine 1.24, sodium 138, potassium 12.4, hemoglobin 11.8, hematocrit 36.5, white count 4.92. He routinely does maintenance cardiac rehab and has been well-maintained with this for quite some time. All of his medications remained unchanged with exception that we will send him home on Lasix 20 mg p.o. daily along with potassium 10 mEq daily. otherwise his blood pressure has been controlled. He recently had an echo done in the past few months. We have discussed in detail about CHF, monitoring for weight gain, decreasing his salt, elevating his legs while sitting. He is to report a weight gain of greater than 3 lbs in one day. We have also discussed him drinking plenty of water with his Lasix this summer as he does like to get outside. He has been in stable condition. We will discharge him home in stable condition and he will followup with us next week. Medications have been reviewed again today on day of discharge. He has received IV Lasix yesterday morning and the day before. This morning he received p.o. Lasix. Again his leg edema has resolved. His lung sounds are clear yet diminished which is normal for him. His telemetry has revealed that he has been in atrial fibrillation vs flutter off and on. He is stable, not short of breath, no dizziness. We will followup with him next week. SPECIFIC ORDERS: The patient is DNR TIME SPENT: More than 60 minutes. FIOR
== END 2017-09-05 10:28 | disposition home or self-care (01) | DRG 292 ==
LOC: MEDSURG B 09:20
PROVIDERS: ADMIT Internal Medicine; ATTEND Internal Medicine
DX: I50.9 Heart failure, unspecified (principal); I48.92 Unspecified atrial flutter; I48.91 Unspecified atrial fibrillation; I73.9 Peripheral vascular disease, unspecified; R06.02 Shortness of breath; I10 Essential (primary) hypertension; I25.2 Old myocardial infarction; I12.9 Hypertensive chronic kidney disease with stage 1 through stage 4 chronic kidney disease, or unspecified chronic kidney disease; N18.3 Chronic kidney disease, stage 3 (moderate); E66.9 Obesity, unspecified; K21.9 Gastro-esophageal reflux disease without esophagitis; E78.5 Hyperlipidemia, unspecified; M19.90 Unspecified osteoarthritis, unspecified site; Z79.01 Long term (current) use of anticoagulants; Z95.1 Presence of aortocoronary bypass graft
CPT/HCPCS: 36415; 80053; 81001; 82550; 83880; 84439; 84443; 84484; 85025; 93005; 93010

== ENCOUNTER 2017-09-06 08:34 | Outpatient (RCR) ==
[2017-10-03 08:59] VITALS: BP 114/56
== END 2017-10-05 23:59 ==
LOC: CAR.REHAB 08:34
PROVIDERS: ATTEND Internal Medicine
DX: I25.10 Atherosclerotic heart disease of native coronary artery without angina pectoris (principal)
CPT/HCPCS: 93797

== ENCOUNTER 2017-10-07 07:27 | Outpatient (RCR) ==
[2017-10-31 08:46] VITALS: BP 120/54
== END 2017-11-05 23:59 ==
LOC: CAR.REHAB 07:27
PROVIDERS: ATTEND Internal Medicine
DX: I25.10 Atherosclerotic heart disease of native coronary artery without angina pectoris (principal); Z95.5 Presence of coronary angioplasty implant and graft
CPT/HCPCS: 93797

== ENCOUNTER 2017-11-06 07:02 | Outpatient (RCR) ==
[2017-12-03 08:55] VITALS: BP 130/64
== END 2017-12-06 23:59 ==
LOC: CAR.REHAB 07:02
PROVIDERS: ATTEND Internal Medicine
DX: I25.10 Atherosclerotic heart disease of native coronary artery without angina pectoris (principal); Z95.5 Presence of coronary angioplasty implant and graft
CPT/HCPCS: 93797

== ENCOUNTER 2017-12-10 06:49 | Outpatient (RCR) ==
[2018-01-02 08:59] VITALS: BP 118/62
== END 2018-01-05 23:59 ==
LOC: CAR.REHAB 06:49
PROVIDERS: ATTEND Internal Medicine
DX: I25.10 Atherosclerotic heart disease of native coronary artery without angina pectoris (principal); Z95.5 Presence of coronary angioplasty implant and graft
CPT/HCPCS: 93797

== ENCOUNTER 2018-01-06 08:09 | Outpatient (RCR) ==
[2018-01-30 08:54] VITALS: BP 114/58
== END 2018-02-05 23:59 ==
LOC: CAR.REHAB 08:09
PROVIDERS: ATTEND Internal Medicine
DX: I25.10 Atherosclerotic heart disease of native coronary artery without angina pectoris (principal); Z95.5 Presence of coronary angioplasty implant and graft
CPT/HCPCS: 93797

== ENCOUNTER 2018-03-10 07:48 | Outpatient (RCR) ==
[2018-03-27 08:53] VITALS: BP 110/54
== END 2018-04-07 23:59 ==
LOC: CAR.REHAB 07:48
PROVIDERS: ATTEND Internal Medicine
DX: I25.10 Atherosclerotic heart disease of native coronary artery without angina pectoris (principal); Z95.5 Presence of coronary angioplasty implant and graft
CPT/HCPCS: 93797

== ENCOUNTER 2018-04-09 07:37 | Outpatient (RCR) ==
[2018-05-08 08:53] VITALS: BP 108/54
== END 2018-05-08 23:59 ==
LOC: CAR.REHAB 07:37
PROVIDERS: ATTEND Internal Medicine
DX: I25.10 Atherosclerotic heart disease of native coronary artery without angina pectoris (principal); Z95.5 Presence of coronary angioplasty implant and graft
CPT/HCPCS: 93797

== ENCOUNTER 2018-05-09 07:03 | Outpatient (RCR) ==
[2018-06-05 08:55] VITALS: BP 126/52
== END 2018-06-05 23:59 ==
LOC: CAR.REHAB 07:03
PROVIDERS: ATTEND Internal Medicine
DX: I25.10 Atherosclerotic heart disease of native coronary artery without angina pectoris (principal); Z95.5 Presence of coronary angioplasty implant and graft
CPT/HCPCS: 93797

== ENCOUNTER 2018-05-27 06:45 | Outpatient (CLI) ==
--- NOTE | 2018-05-28 10:47 | ECHO2D ---
Date of Exam: 05/27/18 Ordering Physician: DR. KALYAN POTTS Room #: OP Reason for Echo: SOB, PLEURITIC PAIN, CABG, AORTIC STENOSIS Murmurs: SYSTOLIC M-Mode Normal Adult Results LV Dimensions Normal Adult Results AoV Opening excursions >1.6 1.2 LVEDD-base- 3.5-5.8 5.5 Ao root dimensions 2.0-3.7 2.8 LVESD-base- 3.1-4.6 L. Atrium dimensions 1.9-3.8 5.4 Post. Wall thickness 0.8-1.1 1.2 IV septum (thickness) 0.7-1.2 1.4 Post. Wall excursion 0.72-1.3 0.9 Septal motion 0.6 Systolic motion R. Ventricular cavity 1.5-2.0 NORMAL LVEF 60% 45% Paradoxical septal wall motion NORMAL 2-D : HYPOKINETIC SEPTAL WALL, ENLARGED LEFT ATRIAL CAVITY, CALCIFIC AORTIC STENOSIS, NO EFFUSION, NO THROMBUS, NORMAL LEFT VENTRICLE CAVITY M-MODE: MV: NORMAL AV: CALCIFIC AORTIC STENOSIS VALVE AREA 0.8 TV: NORMAL PV: CHAMBER SIZE: ENLARGED LEFT ATRIAL CAVITY WALL MOTION: HYPOKINETIC SEPTUM PERICARDIUM: NORMAL INTERPRETATION: 1. LEFT VENTRICULAR HYPERTROPHY WITH ENLARGED LEFT ATRIAL CAVITY 2. CALCIFIC AORTIC STENOSIS-VALVE AREA 0.8 CM (MODERATE TO SEVERE) 3. HYPOKINETIC SEPTAL WALL MTDD
== END 2018-05-27 06:46 | disposition home or self-care (01) ==
LOC: CAR 06:45
PROVIDERS: ATTEND Internal Medicine
DX: R06.02 Shortness of breath (principal); R07.81 Pleurodynia
CPT/HCPCS: 93005; 93010

== ENCOUNTER 2018-06-06 07:02 | Outpatient (RCR) ==
[2018-07-03 08:59] VITALS: BP 116/58
== END 2018-07-06 23:59 ==
LOC: CAR.REHAB 07:02
PROVIDERS: ATTEND Internal Medicine
DX: I25.10 Atherosclerotic heart disease of native coronary artery without angina pectoris (principal); Z95.5 Presence of coronary angioplasty implant and graft
CPT/HCPCS: 93797

== ENCOUNTER 2018-07-07 09:28 | Outpatient (RCR) ==
[2018-08-05 08:47] VITALS: BP 110/50
== END 2018-08-05 23:59 ==
LOC: CAR.REHAB 09:28
PROVIDERS: ATTEND Internal Medicine
DX: I25.10 Atherosclerotic heart disease of native coronary artery without angina pectoris (principal); Z95.5 Presence of coronary angioplasty implant and graft
CPT/HCPCS: 93797

== ENCOUNTER 2018-08-06 07:22 | Outpatient (RCR) ==
[2018-09-04 08:48] VITALS: BP 108/54
== END 2018-09-05 23:59 ==
LOC: CAR.REHAB 07:22
PROVIDERS: ATTEND Internal Medicine
DX: I25.10 Atherosclerotic heart disease of native coronary artery without angina pectoris (principal); Z95.5 Presence of coronary angioplasty implant and graft
CPT/HCPCS: 93797

== ENCOUNTER 2018-09-16 10:00 | Inpatient (IN) ==
[2018-09-16] MEDS ORDERED: TYLENOL PO PRN (10:20)
[2018-09-16] MEDS ORDERED: ATROPINE SULFATE PFS IVP PRN (10:20)
[2018-09-16] MEDS ORDERED: VISTARIL INJ IM PRN (10:20)
[2018-09-16] MEDS ORDERED: NITROSTAT SL PRN (10:20)
[2018-09-16] MEDS ORDERED: DECADRON 4 MG/ML SDV IM STA (10:21)
[2018-09-16] MEDS: ALDACTONE PO SCH (10:58)
[2018-09-16] MEDS: LASIX IVP SCH (10:59)
[2018-09-16 11:02] VITALS: BMI 33.6
--- NOTE | 2018-09-16 11:16 | DI ---
EXAM: Single view of the chest. History: Short of breath Comparison: Chest radiograph 09/03/2017 Findings: Heart is enlarged. Sternotomy wires. Early interstitial edema and trace bilateral pleura l effusions. No pneumothorax. No acute osseous abnormalities. Impression: Mild cardiomegaly with early interstitial edema and trace bilateral pleural effusions
[2018-09-16] MEDS ORDERED: NON-FORMULARY MEDICATION (Omega-3 Fatty Acids/Fish Oil [Fish Oil 1,000 Mg Capsule] 1 CAP) PO SCH (12:00)
[2018-09-16] MEDS: OMEGA-3 FISH OIL PO SCH ×2 (13:27→17:11)
[2018-09-16] MEDS: COREG PO SCH (17:11)
[2018-09-16] MEDS: PLETAL PO SCH (20:17)
[2018-09-16] MEDS: ELIQUIS PO SCH (20:18)
[2018-09-16] MEDS ORDERED: ELIQUIS PO SCH (21:00)
[2018-09-17] MEDS: LASIX IVP SCH (05:51)
[2018-09-17] MEDS ORDERED: ASPIRIN EC PO SCH (08:00)
[2018-09-17] MEDS ORDERED: DECADRON 4 MG/ML SDV IVP STA (08:29)
--- NOTE | 2018-09-17 08:42 | PCM.PROG ---
Attending Provider: ATTENDING PROVIDER: Dr. KLAYAN POTTS DATE OF SERVICE: 09/17/18 SUBJECTIVE: This 83 year old WHITE/ M was hospitalized 09/16/18 with fluid retention, symptoms of CHF and also increased episodes of angina. feeling better breathing better REVIEW OF SYSTEMS: CONSTITUTIONAL: No night sweats. No fatigue, malaise, lethargy. No fever or chills. Feeling better. HEENT: Eyes: No visual changes. No eye pain. No eye discharge. ENT: No runny nose. No epistaxis. No sinus pain. No odynophagia. No congestion. RESPIRATORY: No cough, no congestion. No hemoptysis. No shortness of breath. Breathing better. CARDIOVASCULAR: No angina symptoms. No CHF symptoms. No atypical chest pain for CAD. No palpitations. No orthopnea.. GASTROINTESTINAL: No abdominal pain. No nausea or vomiting. No diarrhea or constipation. No hematemesis. No hematochezia. GENITOURINARY: No urgency. No frequency. No dysuria. No hematuria. No obstructive symptoms. No discharge. No pain. No significant abnormal bleeding. MUSCULOSKELETAL: No musculoskeletal pain; no joint swelling. NEUROLOGICAL: Awake, alert, oriented to time, place and person. No headache. No neck pain. No syncope. No seizures. No dizziness. PSYCHIATRIC: Not anxious. No depression. No suicidal thoughts. No homicidal thoughts. SKIN: No rash. No lesions. No wounds. ENDOCRINE: No unexplained weight loss. No weight gain. HEMATOLOGIC/LYMPHATIC: No anemia. No purpura. No petechiae. No prolonged or excessive bleeding. No palpable lymph nodes. PHYSICAL EXAMINATION: GENERAL: The patient is awake, alert and oriented to time, place and person, lying in bed in no distress. VITAL SIGNS: Temperature 97.9 F, Pulse 70, Respiratory Rate 18, BP 143/77, Pulse Ox 94% HEENT: Head normocephalic, atraumatic. Eyes: Extraocular muscles are intact. Pupils are equal, round and reactive to light and accommodation. Ears: No lesions. Nose appeared normal. Throat: No exudate or erythema. NECK: Supple. No JVD, no carotid bruit. No lymphadenopathy or thyromegaly. LUNGS: Decreased breath sounds. Clear to auscultation. Percussion note normal. Chest symmetrical. HEART: S1, S2, no S3. No murmurs. No cyanosis or clubbing. No ascites. Pulses: Dorsalis pedis and posterior tibial pulses +1 to +2 both sides. ABDOMEN: Soft. Non-tender. Bowel sounds active. No CVA tenderness. No mass felt. EXTREMITIES: +1 pitting edema. Full range of motion of all extremities, equal. NEUROLOGIC: No focal deficit. Cranial nerves II through XII are grossly intact. No headache, no double vision or headache. SKIN: Warm and dry. Intact. Turgor-normal. LYMPHATIC: No palpable lymph nodes/no lymphedema. MUSCULOSKELETAL: Normal joints with no swelling. Muscle tone is normal. LAB REVIEW: 09/17/18 05:00 09/17/18 05:00 09/17/18 05:00: Sodium 134.1 L, Potassium 4.00, Chloride 98.6, Carbon Dioxide 26.9, Anion Gap 12.60, BUN 17.0, Creatinine 0.96, Estimated GFR (MDRD) 75.00, BUN/Creatinine Ratio 17.70, Glucose 102.5, Calcium 8.91, Total Bilirubin 1.04, AST 52.3, ALT 26.6, Alkaline Phosphatase 42.4 L, Total Protein 6.42, Albumin 3.76, Globulin 2.66, Albumin/Globulin Ratio 1.41 09/17/18 05:00: WBC 5.98, RBC 3.87 L, Hgb 11.8 L, Hct 36.1 L, MCV 93.3, MCH 30.5 , MCHC 32.7, RDW Coeff of Yaritza 13.9, Plt Count 202, Immature Gran % (Auto) 0.5, Neut % (Auto) 80.7, Lymph % (Auto) 10.9, [place] % (Auto) 7.5, Eos % (Auto) 0.2, Baso % (Auto) 0.2, Immature Gran # (Auto) 0.0, Neut # (Auto) 4.8, Lymph # (Auto ) 0.7, [place] # (Auto) 0.5, Eos # (Auto) 0.0, Baso # (Auto) 0.0 09/16/18 18:30: Total Creatine Kinase 75.4, Troponin I < 0.012 09/16/18 11:30: Urine Color Yellow, Urine Clarity Clear, Urine pH 6.0, Ur Specific [place] 1.010, Urine Protein Negative, Urine Glucose (UA) Negative, Urine Ketones Negative, Urine Blood Negative, Urine Nitrite Negative, Urine Bilirubin Negative, Urine Urobilinogen 0.2, Ur Leukocyte Esterase Negative 09/16/18 10:50: Sodium 134.7, Potassium 4.56, Chloride 99.6, Carbon Dioxide 21.1 L, Anion Gap 18.56, BUN 14.3, Creatinine 0.96, Estimated GFR (MDRD) 75.00, BUN/Creatinine Ratio 14.89, Glucose 94.0, Calcium 9.12, Total Bilirubin 1.12, AST 60.2 H, ALT 27.7, Alkaline Phosphatase 38.3 L, Total Creatine Kinase 81.0, Troponin I < 0.012, NT-Pro-B Natriuret Pep 5020.000 H, Total Protein 6.72, Albumin 3.99, Globulin 2.73, Albumin/Globulin Ratio 1.46, TSH 5.930 H 09/16/18 10:50: WBC 5.58, RBC 3.96 L, Hgb 12.3 L, Hct 38.1 L, MCV 96.2 H, MCH 31.1 H, MCHC 32.3, RDW Coeff of Yaritza 14.1, Plt Count 198, Immature Gran % (Auto) 0.2, Neut % (Auto) 57.1, Lymph % (Auto) 24.4, [place] % (Auto) 12.5 H, Eos % (Auto ) 4.7, Baso % (Auto) 1.1, Immature Gran # (Auto) 0.0, Neut # (Auto) 3.2, Lymph # (Auto) 1.4, [place] # (Auto) 0.7, Eos # (Auto) 0.3, Baso # (Auto) 0.1 ASSESSMENT: Please see below. 1. CHF seems to be resolving 2. Angina is stable 3. PVCs with ventricular bigeminy type of rhythm 4. Atrial Fibrillation 5. Coronary artery disease with bypass surgery 6. Anemia 7. Hypertension PLAN: 1. Continue IV Lasix 2. Aldactone added 3. Will do daily CBC and CMP 4. Pro BNP 5,000 5. Will get echo report and consider the patient for Entresto Plan and coordination of the patient's care discussed in the presence of Pick And Shovel Man and nurse. SCRIBED BY: AURY WOODARD Online Media Buyer scribed while in presence of service performed by Dr. KALYAN POTTS on 09/17/18 ([id number])
[2018-09-17] MEDS ORDERED: VALSARTAN 40 MG PO SCH (09:00)
[2018-09-17] MEDS ORDERED: NON-FORMULARY MEDICATION (Metoprolol Tartrate [Lopressor] 100 MG) PO SCH (09:00)
[2018-09-17] MEDS ORDERED: NON-FORMULARY MEDICATION (Pravastatin Sodium [Pravachol] 80 MG) PO SCH (09:00)
[2018-09-17] MEDS: ALDACTONE PO SCH (09:25)
[2018-09-17] MEDS: PLETAL PO SCH ×2 (09:26→20:29)
[2018-09-17] MEDS: TRIGLIDE PO SCH (09:27)
[2018-09-17] MEDS: COREG PO SCH ×2 (09:27→17:21)
[2018-09-17] MEDS: PRAVACHOL PO SCH (09:27)
[2018-09-17] MEDS: LOPRESSOR PO SCH (09:28)
[2018-09-17] MEDS: DIOVAN PO SCH (09:29)
[2018-09-17] MEDS: ELIQUIS PO SCH ×2 (09:31→20:29)
--- NOTE | 2018-09-17 11:40 | RS.PTINEVL ---
Subjective - Patient information Date of Evaluation: 09/17/18 Date of Arrival on Unit: 09/16/18 Admitted From:: Home Diagnosis: CHF, angina Usual Living Arrangement: With Spouse Living Arrangement Comments: LIVES WITH SPOUSE AND SON Home Environment: House, Stairs (few), Rail Medical History: Hypertension, Arthritis Medical History Comments:: CAD, Afib, CKD Surgical History: CABG Surgical History Comments:: AAA repair Medications: see chart Subjective Information/ Patient Comments:: pt states that he feels his LE's have been getting weaker recently. States he comes for cardiac rehab at [facility]. - Level of function Prior to this admission, the patient could do the following:: Independent Selfcare, Independent ADL's, Independent Ambulation, Drive Current Level of Function: Partially Dependent Current Equipment Used at Home: NONE Interventions - Objective Patient Orientation: Person, Place, Time, Situation Current Interventions: Telemetry Observation: pt with pitting edema BLE's Range of Motion - ROM Right Upper Extremity AROM: Moderate limitation (limited shld flexion and abduction) Left Upper Extremity AROM: Moderate limitation (limited shld flexion and abduction) Right Lower Extremity AROM: WFL's Left Lower Extremity AROM: WFL's Muscle Strength - Muscle Strength Right Upper Extremity Strength: Mild Weakness (shld flex 3-/5, elbow flex/ext 4/ 5) Left Upper Extremity Strength: Mild Weakness (shld flex 3-/5, elbow flex/ext 4/5 ) Right Lower Extremity Strength: Mild Weakness (hip flex 3+/5, knee flex/ext 4-/5 , ankle DF.PF 4/5) Left Lower Extremity Strength: Mild Weakness (hip flex 3+/5, knee flex/ext 4-/5 , ankle DF.PF 4/5) Sensation - Sensation Right Upper Extremity Sensation: Intact/Normal Left Upper Extremity Sensation: Intact/Normal Right Lower Extremity Sensation: Intact/Normal Left Lower Extremity Sensation: Intact/Normal Palpation Palpation Findings: None/Normal Balance - Sitting Balance and Reactions Static Sitting Balance: Good Dynamic Sitting Balance: Good - Standing Balance and Reactions Static Standing Balance: Fair Dynamic Standing Balance: Fair Functional Mobility - Bed Mobility Comments:: pt seen sitting up in chair did not wish to return to bed - Transfers Sit to Stand: CGA Stand to Sit: CGA - Safety Awareness Safety Awareness: Fair CK INDEX SCORE: n/a Ambulation - Ambulation Assistive Device Used: Gait belt Orthotic/Prosthetic Device: No Distance: 140ft Assistance needed with Ambulation: CGA Gait Deviations: Forward posture, Short stride Ambulation Comments: pt amb with increased lat sway Factors Affecting Ambulation: Decreased Balance, Breathing/O2 Saturation, Weakness, Limited Endurance Treatment time - Units charged Gait trainin - Time with patient Length of Evaluation: 18 Total treatment time: 26 Patient Education - Education Patient Education: Activity Modification, Education of Plan of Care Teaching Recipient: Patient Teaching Methods: Discussion Comments: discussion regarding HEP Assessment - Assessment Problem List:: Decreased level of function, Requires training/education, Decreased safety/Risk of falls, Weakness Rehab Potential: Good Further Therapy Indicated?: Yes Candidate for Swing Bed for Therapy Services?: do not feel pt would be a candidate for swing bed due to higher level of function Evaluation Complexity: HISTORY: Medium, EXAM OF BODY SYSTEMS: Medium, CLINICAL PRESENTATION: Low, CLINICAL DECISION MAKING: Low Short Term Goals GOAL #1: pt transfer sup to/from sit to/from stand SBA Goal to be met by: 09/18/18 GOAL #2: pt amb 150ft SBA no LOB Goal to be met by: 09/18/18 GOAL #3: Improve dyn stand balance fair+ Goal to be met by: 09/18/18 Prison Goals GOAL #1: Improve BLE strength 4 to 4+/5 Goal to be met by: 09/20/18 GOAL #2: pt amb functional household distances SBA to independent Goal to be met by: 09/20/18 GOAL #3: pt independent with HEP Goal to be met by: 09/20/18 Plan Plan of Care: Therapeutic EX, Therapeutic Activity Other:: gait training Frequency of Treatment: 1-2 X day, as tolerated Duration of Treatment: 3-5 days Anticipated Discharge Destination: Home Treatment Diagnosis (ICD 10 Codes): impairment of balance R26.81. muscle weakness M 62.81 Has the Physician been added for Co-signature?: Yes
[2018-09-17] MEDS: OMEGA-3 FISH OIL PO SCH ×2 (17:21→17:29)
[2018-09-18] MEDS: LASIX IVP SCH (05:39)
[2018-09-18] MEDS: LOPRESSOR PO SCH (08:42)
[2018-09-18] MEDS: PLETAL PO SCH ×2 (08:42→20:54)
[2018-09-18] MEDS: PRAVACHOL PO SCH (08:43)
[2018-09-18] MEDS: DIOVAN PO SCH (08:43)
[2018-09-18] MEDS: ALDACTONE PO SCH (08:43)
[2018-09-18] MEDS: TRIGLIDE PO SCH (08:43)
[2018-09-18] MEDS: COREG PO SCH ×2 (08:43→16:29)
[2018-09-18] MEDS: ELIQUIS PO SCH ×2 (08:44→20:53)
[2018-09-18] MEDS: OMEGA-3 FISH OIL PO SCH ×2 (12:04→16:25)
--- NOTE | 2018-09-18 14:11 | PN ---
DATE OF SERVICE: 09/18/18 SUBJECTIVE: The patient was seen and examined this morning. He is breathing a lot better, he wants to go home. REVIEW OF SYSTEMS: CONSTITUTIONAL: No night sweats. No fatigue, malaise, lethargy. No fever or chills. HEENT: Eyes: No visual changes. No eye pain. No eye discharge. ENT: No runny nose. No epistaxis. No sinus pain. No sore throat. No odynophagia. No congestion. RESPIRATORY: No cough, no congestion. No hemoptysis. No shortness of breath. CARDIOVASCULAR: No angina symptoms. No CHF symptoms. No atypical chest pain for CAD. No palpitations. No PND. No orthopnea. GASTROINTESTINAL: No abdominal pain. No nausea or vomiting. No diarrhea or constipation. No hematemesis. No hematochezia. GENITOURINARY: No urgency. No frequency. No dysuria. No hematuria. No obstructive symptoms. No discharge. No pain. No significant abnormal bleeding. MUSCULOSKELETAL: No musculoskeletal pain; no joint swelling. NEUROLOGICAL: No headache. No neck pain. No syncope. No seizures. No dizziness. PSYCHIATRIC: Not anxious. No depression. No suicidal thoughts. No homicidal thoughts. SKIN: No rash. No lesions. No wounds. ENDOCRINE: No unexplained weight loss. No weight gain. HEMATOLOGIC/LYMPHATIC: No anemia. No purpura. No petechiae. No prolonged or excessive bleeding. No palpable lymph nodes. PHYSICAL EXAMINATION: GENERAL: The patient is oriented to time, place and person. HEENT: Head normocephalic, atraumatic. Eyes: Extraocular muscles are intact. Pupils are equal, round and reactive to light and accommodation. Ears: No lesions. Nose appeared normal. Throat: No exudate or erythema. NECK: Supple. No JVD, no carotid bruit. No lymphadenopathy or thyromegaly. LUNGS: Decreased breath sounds but clear to auscultation. Percussion note normal. Chest symmetrical. HEART: S1, S2, no S3. Grade I/Vi systolic ejection murmur. No cyanosis or clubbing. No ascites. Pulses: Dorsalis pedis and posterior tibial pulses +1 to +2 bilaterally. ABDOMEN: Soft. Nontender. Bowel sounds active. No CVA tenderness. No mass felt. EXTREMITIES: 1+ to +2 pitting edema it is dependant edema. Full range of motion of all extremities, equal. NEUROLOGIC: No focal deficit. Cranial nerves II through XII are grossly intact. No headache, no double vision or headache. SKIN: Not dry. Intact. Turgor - normal. LYMPHATIC: No palpable lymph nodes/no lymphedema. MUSCULOSKELETAL: Normal joints with no swelling. Muscle tone is normal. PLAN: 1. Advised to keep the legs up. 2. Continue IV Lasix 3. Will monitor for one more day. 4. The patient had ventricular bigeminy off and on yesterday and last night he had less arrhythmias. The patient has moderate aortic stenosis. He declined any further work for now. He had cardiac cath done twice in past 7-8 years. 5. We will order full echo CONDITION: Stable. TIME SPENT: More than 30 minutes. Plan and coordination of the patient's care discussed in the presence of nurse. FIOR
--- NOTE | 2018-09-18 14:43 | DI ---
EXAM: CHEST FRONTAL AND LATERAL VIEWS HISTORY: Shortness of breath. COMPARISON: 09/16/2018 FINDINGS / IMPRESSION: Stable cardiomegaly. Sternotomy wires are present. Previously seen central vascular congestion has mostly resolved. There is no consolidated pneumonia, visible pleural fluid or pneumothorax.
[2018-09-19 05:02] VITALS: BP 121/78; TEMP 98.4
[2018-09-19] MEDS: LASIX IVP SCH (05:41)
--- NOTE | 2018-09-19 08:49 | PCM.PROG ---
Attending Provider: ATTENDING PROVIDER: Dr. KALYAN POTTS This patient is seen with Charlene Weeks, Nurse Practitioner. DATE OF SERVICE: 09/19/18 SUBJECTIVE: This 83 year old WHITE/ M was hospitalized 09/16/18. The patient is resting comfortably. Shortness of breath has resolved. Kidney function has remained stable along with Potassium after starting Aldactone. He will be go home today. REVIEW OF SYSTEMS: CONSTITUTIONAL: No night sweats. No fatigue, malaise, lethargy. No fever or chills. HEENT: Eyes: No visual changes. No eye pain. No eye discharge. ENT: No runny nose. No epistaxis. No sinus pain. No odynophagia. No congestion. RESPIRATORY: No cough, no congestion. No hemoptysis. No shortness of breath. CARDIOVASCULAR: No angina symptoms. No CHF symptoms. No atypical chest pain for CAD. No palpitations. No orthopnea.. GASTROINTESTINAL: No abdominal pain. No nausea or vomiting. No diarrhea or constipation. No hematemesis. No hematochezia. GENITOURINARY: No urgency. No frequency. No dysuria. No hematuria. No obstructive symptoms. No discharge. No pain. No significant abnormal bleeding. MUSCULOSKELETAL: No musculoskeletal pain; no joint swelling. NEUROLOGICAL: Awake, alert, oriented to time, place and person. No headache. No neck pain. No syncope. No seizures. No dizziness. PSYCHIATRIC: Not anxious. No depression. No suicidal thoughts. No homicidal thoughts. SKIN: No rash. No lesions. No wounds. ENDOCRINE: No unexplained weight loss. No weight gain. HEMATOLOGIC/LYMPHATIC: No anemia. No purpura. No petechiae. No prolonged or excessive bleeding. No palpable lymph nodes. PHYSICAL EXAMINATION: GENERAL: The patient is awake, alert and oriented, lying in bed in no distress. VITAL SIGNS: Temperature 98.4 F, Pulse 63, Respiratory Rate 17, BP 121/78, Pulse Ox 95% HEENT: Head normocephalic, atraumatic. Eyes: Extraocular muscles are intact. Pupils are equal, round and reactive to light and accommodation. Ears: No lesions. Nose appeared normal. Throat: No exudate or erythema. NECK: Supple. No JVD, no carotid bruit. No lymphadenopathy or thyromegaly. LUNGS: Decreased breath sounds. Clear to auscultation. Percussion note normal. Chest symmetrical. HEART: S1, S2, no S3. No murmurs. Systolic click. No cyanosis or clubbing. No ascites. Pulses: Dorsalis pedis and posterior tibial pulses +1 to +2 both sides. ABDOMEN: Soft. Non-tender. Bowel sounds active. No CVA tenderness. No mass felt. EXTREMITIES: No edema. Full range of motion of all extremities, equal. NEUROLOGIC: No focal deficit. Cranial nerves II through XII are grossly intact. No headache, no double vision or headache. SKIN: Not dry. Intact. Turgor-normal. LYMPHATIC: No palpable lymph nodes/no lymphedema. MUSCULOSKELETAL: Normal joints with no swelling. Muscle tone is normal. LAB REVIEW: 09/19/18 05:00 09/19/18 05:00 09/19/18 05:00: Sodium 135.5, Potassium 4.29, Chloride 97.3 L, Carbon Dioxide 28.7, Anion Gap 13.79, BUN 31.3 H, Creatinine 1.28 H, Estimated GFR (MDRD) 54.00 , BUN/Creatinine Ratio 24.45, Glucose 88.7, Calcium 9.49, Total Bilirubin 0.83, AST 48.8, ALT 27.1, Alkaline Phosphatase 38.7 L, Total Protein 6.37, Albumin 3.69, Globulin 2.68, Albumin/Globulin Ratio 1.37 09/19/18 05:00: WBC 6.16, RBC 4.17 L, Hgb 13.0 L, Hct 39.0 L, MCV 93.5, MCH 31.2 H, MCHC 33.3, RDW Coeff of Yaritza 14.2, Plt Count 216, Immature Gran % (Auto) 0.3, Neut % (Auto) 50.7, Lymph % (Auto) 28.9, [place] % (Auto) 13.8 H, Eos % (Auto ) 5.0, Baso % (Auto) 1.3, Immature Gran # (Auto) 0.0, Neut # (Auto) 3.1, Lymph # (Auto) 1.8, [place] # (Auto) 0.9, Eos # (Auto) 0.3, Baso # (Auto) 0.1 09/18/18 05:00: NT-Pro-B Natriuret Pep 4100.000 H ASSESSMENT: Please see below. 1. CHF, improved 2. Coronary artery disease 3. Hypertension PLAN: 1. Discharge home 2. Continue Aldactone 25mg PO daily 3. Lasix 40mg PO daily 4. Complete Echo at [facility] 5. Referral to valve clinic Plan and coordination of the patient's care discussed in the presence of Radiochemical Technician and nurse. SCRIBED BY: Deny ANDINO scribed while in presence of service performed by Dr. Potts/Charlene Weeks APRN on 09/19/18 ([id number])
[2018-09-19] MEDS: PLETAL PO SCH (09:02)
[2018-09-19] MEDS: TRIGLIDE PO SCH (09:02)
[2018-09-19] MEDS: PRAVACHOL PO SCH (09:02)
[2018-09-19] MEDS: DIOVAN PO SCH (09:02)
[2018-09-19] MEDS: LOPRESSOR PO SCH (09:02)
[2018-09-19] MEDS: COREG PO SCH (09:03)
[2018-09-19] MEDS: ELIQUIS PO SCH (09:03)
[2018-09-19] MEDS: ALDACTONE PO SCH (09:03)
--- NOTE | 2018-09-19 09:42 | HP ---
DATE OF SERVICE: 09/16/18 REASON FOR HOSPITALIZATION/HISTORY OF PRESENT ILLNESS: The patient has weight gain, shortness of breath and angina for 4 days. He has has symptoms of CHF and coronary insufficiency. No chills or fever. The patient was in cardiac rehab this AM and talked to me. PAST MEDICAL HISTORY/PAST SURGICAL HISTORY: Arthritis pain all over, Osteoarthritis Pleuritic pain Shortness of breath CHF History of hypertension GERD Atrial fibrillation/flutter CAD with ID and CABG 2006 (45% 4-17 echo) PAD with claudication Chronic kidney disease Dyslipidemia AAA repair Dr. Jones1997 Heart Cath 2011 unchanged 2007(medical management) Cardiac stents AAA repair Cataract surgery REVIEW OF SYSTEMS: CONSTITUTIONAL: No fever, Fatigue. HEENT: Sinus drainage, no sore throat. RESPIRATORY: Cough sinuses, no congestion. CARDIOVASCULAR: No atypical chest pain for coronary artery disease. Angina, CHF symptoms and shortness of breath. No palpitations. GASTROINTESTINAL: No melena or abdominal pain. No GERD. GENITOURINARY: No hematuria, no prostatism, no polyuria. BILLER: No blackout, Dizziness, no headache, no double vision. MUSCULOSKELETAL: Osteoarthritis pain, no joint swelling. ENDOCRINE: No weight loss,Weight gain. SKIN: Not dry, no rash. PSYCHIATRIC: Anxious, no depression, no suicidal thoughts, no homicidal thoughts. SOCIAL HISTORY: Marital Status: . Alcohol Usage: No. Tobacco Usage: No. FAMILY HISTORY: Father CAD Mother CAD Brother one alive age 84, Bone cancer-CAD MEDICATIONS: K- tab 10meq PO daily Lasix 20mg PO daily Eliquis 5mg PO two times per day Coreg 12.5mg twice a day Imdur 30mg four times a day Diovan 40mg PO daily Fenofibrate 160mg PO daily Metoprolol 100mg PO daily Pravastatin 80mg PO daily Pletal 50mg PO two times per day Fish oil 1000 two tablet PO two times per day ALLERGIES: No known allergies PHYSICAL EXAMINATION: V/S: Pulse 68, blood pressure 110/60, oxygen saturation 96%. Height 5'6, weight 212.8 and BMI 34.4. GENERAL APPEARANCE: Oriented times three. HEENT: Normal. NECK: JVP 2cm, no bruits. RESPIRATORY: Creps at bases. CARDIOVASCULAR: S1, S2, S3, no murmurs. No cyanosis, clubbing. No ascites. GI/ABDOMEN: No tenderness. Bowel sounds are active. EXTREMITIES: +2 pitting edema, pulses +1, equal. BILLER: Deep tendon reflexes, sensory, motor and gait all normal. RECTAL:9-17 EGD/PROSTATE: 7-18 (0.1). ASSESSMENT: 1. CHF/Angina 2. Chronic sinusitis 3. Chronic bronchitis 4. Arthritis pain all over, Osteoarthritis 5. Pleuritic pain 6. Shortness of breath 7. CHF 8. History of hypertension 9. GERD 10.Atrial fibrillation/flutter 11.CAD with ID and CABG 2006 (45% 4-17 echo) 12.PAD with claudication 13.Chronic kidney disease 14.Dyslipidemia 15.AAA repair Dr. Jones 1996 16.Heart Cath 2011(medical management) PLAN: 1. Admit to ICU/Special Care 2. Oxygen 2 liters nasal cannula 3. Routine Telemetry orders 4. 1cc Decadron IM now 5. Lasix 40mg IV now and QAM 6. Weights daily 7. Elevate legs 8. Eliquis 5mg PO twice a day 9. Continue all medications 10.Discontinue PO Lasix 11.Aldactone 25mg PO daily and one today 12.TSH , NT PRO BNP TIME SPENT: More than 70 minutes. MTDD
--- NOTE | 2018-09-19 11:15 | CM.DICTOOL ---
ADMISSION: 09/16/18 10:00 DISCHARGE: SEPTEMBER 19, 2018 DATE OF SERVICE: 09/19/18 FINAL DIAGNOSIS CHF, IMPROVED ANGINA AFIB/AFLUTTER; ON ELIQUIS PAD W/ CLAUDICATION CAD WITH [place] 1986 CABG 2007 HTN DYSLIPIDEMIA PLEURITIC PAIN SOB BRONCHITIS GERD CKD STAGE 2 OA CHRONIC SINUSITIS AAA REPAIR 1996 CABG 2007 HEART CATH 2007 CATARACTS REMOVED ESOPHAGUS STRETCHED 2019 FORMER SMOKER ECHO 05/27: LVH W/ ENLARGED LAC. MODERATE TO SEVERE CALCIFIC AORTIC STENOSIS - VALVE AREA 0.8 CM HYPOKINECTIC SEPTAL WALL LVEF 45% PFT 05/27: MODERATE COPD LAST VITALS Temp Pulse Resp BP Pulse Ox 98.4 F 63 17 121/78 95 09/19/18 04:58 09/19/18 04:58 09/19/18 04:58 09/19/18 04:58 09/19/18 04:58 TAKE THESE MEDICATIONS AT HOME Apixaban (Eliquis) 5 mg PO BID [facility] Last Admin: 09/19/18 09:03 Dose: 5 mg Carvedilol (Coreg) 12.5 mg PO BIDWM [facility] Last Admin: 09/19/18 09:03 Dose: 12.5 mg Cilostazol (Pletal) 50 mg PO BID [facility] Last Admin: 09/19/18 09:02 Dose: 50 mg Fenofibrate (Tricor) 160 mg PO DAILY [facility] Last Admin: 09/19/18 09:02 Dose: 160 mg Fish Oil ([place]-3 Fish Oil) 1,000 mg PO 1200,1700 [facility] Last Admin: 09/18/18 16:25 Dose: 1,000 mg Furosemide (Lasix) 40 mg PO QDAC [facility] Last Admin: 09/19/18 05:41 Dose: 40 mg Metoprolol Tartrate (Lopressor) 100 mg PO DAILY [facility] Last Admin: 09/19/18 09:02 Dose: 100 mg Pravastatin Sodium (Pravachol) 80 mg PO DAILY [facility] Last Admin: 09/19/18 09:02 Dose: 80 mg Spironolactone (Aldactone) 25 mg PO DAILY [facility] Last Admin: 09/19/18 09:03 Dose: 25 mg Valsartan (Diovan) 40 mg PO DAILY [facility] Last Admin: 09/19/18 09:02 Dose: 40 mg ALLERGIES No Known Allergies Allergy (Verified 02/28/17 16:53) DISCONTINUED MEDICATIONS None NEW PRESCRIPTIONS: LASIX 40 MG DAILY ALDACTONE 25 MG DAILY SMOKING: NOT APPLICABLE DISEASE SPECIFIC EDUCATION: DIET NEW MEDICATIONS ELEVATE LEGS WEIGH DAILY APPOINTMENTS/TESTS LAB REVIEW: 09/19/18 05:00 09/19/18 05:00 09/19/18 05:00: Sodium 135.5, Potassium 4.29, Chloride 97.3 L, Carbon Dioxide 28.7, Anion Gap 13.79, BUN 31.3 H, Creatinine 1.28 H, Estimated GFR (MDRD) 54.00 , BUN/Creatinine Ratio 24.45, Glucose 88.7, Calcium 9.49, Total Bilirubin 0.83, AST 48.8, ALT 27.1, Alkaline Phosphatase 38.7 L, Total Protein 6.37, Albumin 3.69, Globulin 2.68, Albumin/Globulin Ratio 1.37 09/19/18 05:00: WBC 6.16, RBC 4.17 L, Hgb 13.0 L, Hct 39.0 L, MCV 93.5, MCH 31.2 H, MCHC 33.3, RDW Coeff of [place]aritza 14.2, Plt Count 216, Immature Gran % (Auto) 0.3, Neut % (Auto) 50.7, Lymph % (Auto) 28.9, [place] % (Auto) 13.8 H, Eos % (Auto ) 5.0, Baso % (Auto) 1.3, Immature Gran # (Auto) 0.0, Neut # (Auto) 3.1, Lymph # (Auto) 1.8, [place] # (Auto) 0.9, Eos # (Auto) 0.3, Baso # (Auto) 0.1 09/18/18 05:00: NT-Pro-B Natriuret Pep 4100.000 H PLAN: DISCHARGE HOME WITH SPOUSE DIET: HEART HEALTHY ACTIVITY: GRADUALLY RESUME TOLERATED ELEVATE LEGS ABOVE THE LEVEL OF THE HIPS WHEN IN BED AND WHEN SITTING WEIGH SELF DAILY AND NOTIFY MD OF WEIGHT GAIN OVER 2-3 POUNDS IN ONE WEEK YOU ARE SCHEDULED FOR OUTPATIENT 2D-M MODE ECHOCARDIOGRAM AT [facility] ON September AT 6:45 AM. PLEASE COME TO PATIENT REGISTRATION THE MORNING OF THE YOU ARE SCHEDULED FOR A COMPLETE ECHOCARDIOGRAM AT [facility] ON September AT 1:30 PM AN APPOINTMENT IS SCHEDULED WITH DR. POTTS/TRAV GARNER APRN ON SEPTEMBER 26 AT 10 :30 AM YOU HAVE BEEN REFERRED TO THE VALVE CLINIC AT [facility]. THEY WILL CALL YOU WITH AN APPOINTMENT AFTER YOUR RECORDS ARE REVIEWED. CODE STATUS: DNR MR. DASILVA IS ALERT AND ORIENTED X 3. HE LIVES WITH HIS , EDGARDO AND AN ADULT SON. AND MRS DASILVA HAVE BEEN ADVISED OF DISCHARGE PLANS, APPOINTMENTS FOR OUTPATIENT TESTING AND ARE AGREEABLE. MR. DASILVA IS INDEPENDENT WITH ACTIVITIES OF DAILY LIVING. HE IS AMBULATORY IN THE ROOM AND IS ABLE TO TRANSFER SELF FROM THE BED TO THE CHAIR. MEAL INTAKES ARE GOOD AT 75-100%. HE HAS NOT REQUIRED USE OF OXYGEN DURING HIS HOSPITALIZATION. WEIGHT LOSS OF 11 POUNDS NOTED SINCE HIS ADMISSION. HE IS CONTINENT OF BLADDER AND BOWEL AND IS AMBULATORY TO THE BATHROOM. HYDRATION STATUS IS GOOD. SKIN IS INTACT AND FREE OF DECUBITUS ULCERS. MD TRAV WHITTAKER APRN
--- NOTE | 2018-09-19 11:27 | PN ---
DATE OF SERVICE: 09/19/18 SUBJECTIVE: The patient was seen and examined with Nurse Practitioner. The patient's condition has improved and he is feeling a lot better. No symptoms of CHF. Chest x-ray showed remarkable improvement. We will do the echo as an outpatient. The patient has moderate aortic stenosis. In the past he had declined to do anything done bout. Followup we will schedule him for a complete echo at [facility] and maybe set him up for valve clinic. CHF education carried out. TIME SPENT: More than 30 minutes. Plan and coordination of the patient's care discussed in the presence of nurse. FIOR
--- NOTE | 2018-09-19 11:28 | PN ---
09/16/18: Level 5 09/17/18: Intermediate 09/18/18: Intermediate 09/19/18: D as in discharge MTDD
[2018-09-19] MEDS: OMEGA-3 FISH OIL PO SCH (12:01)
--- NOTE | 2018-09-25 14:39 | DS ---
DATE OF SERVICE: 09/19/18 FINAL DIAGNOSIS: 1. CHF, IMPROVED 2. ANGINA 3. AFIB/AFLUTTER; ON ELIQUIS 4. PAD W/ CLAUDICATION 5. CAD WITH [place] 1986 6. CABG 2007 7. HTN 8. DYSLIPIDEMIA 9. PLEURITIC PAIN 10. SOB 11. BRONCHITIS 12. GERD 13. CKD STAGE 2 14. OA 15. CHRONIC SINUSITIS 16. AAA REPAIR 1996 17. CABG 2007 18. HEART CATH 2007 19. CATARACTS REMOVED 20. ESOPHAGUS STRETCHED 2018 21. FORMER SMOKER DISCHARGE VITAL SIGNS: Temperature 98.4, pulse 63, respiratory rate 17, BP 121/78, pulse ox 95. DISCHARGE INSTRUCTIONS: 1. ELEVATE LEGS ABOVE THE LEVEL OF THE HIPS WHEN IN BED AND WHEN SITTING. 2. WEIGH SELF DAILY AND NOTIFY MD OF WEIGHT GAIN OVER 2-3 POUNDS IN ONE WEEK. 3. YOU ARE SCHEDULED FOR OUTPATIENT 2D-M MODE ECHOCARDIOGRAM AT [facility] ON September AT 6:45 AM. PLEASE COME TO PATIENT REGISTRATION THE MORNING OF THE . 4. YOU ARE SCHEDULED FOR A COMPLETE ECHOCARDIOGRAM AT [facility] ON September AT 1:30 PM. 5. AN APPOINTMENT IS SCHEDULED WITH DR. POTTS/TRAV GARNER APRN ON SEPTEMBER 26 AT 10:30 AM. 6. YOU HAVE BEEN REFERRED TO THE VALVE CLINIC AT [facility]. THEY WILL CALL YOU WITH AN APPOINTMENT AFTER YOUR RECORDS ARE REVIEWED. MEDICATIONS AT DISCHARGE: Apixaban (Eliquis) 5 mg PO BID [facility] Last Admin: 09/19/18 09:03 Dose: 5 mg Carvedilol (Coreg) 12.5 mg PO BIDWM [facility] Last Admin: 09/19/18 09:03 Dose: 12.5 mg Cilostazol (Pletal) 50 mg PO BID [facility] Last Admin: 09/19/18 09:02 Dose: 50 mg Fenofibrate (Tricor) 160 mg PO DAILY [facility] Last Admin: 09/19/18 09:02 Dose: 160 mg Fish Oil ([place]-3 Fish Oil) 1,000 mg PO 1200,1700 [facility] Last Admin: 09/18/18 16:25 Dose: 1,000 mg Furosemide (Lasix) 40 mg PO QDAC [facility] Last Admin: 09/19/18 05:41 Dose: 40 mg Metoprolol Tartrate (Lopressor) 100 mg PO DAILY [facility] Last Admin: 09/19/18 09:02 Dose: 100 mg Pravastatin Sodium (Pravachol) 80 mg PO DAILY [facility] Last Admin: 09/19/18 09:02 Dose: 80 mg Spironolactone (Aldactone) 25 mg PO DAILY [facility] Last Admin: 09/19/18 09:03 Dose: 25 mg Valsartan (Diovan) 40 mg PO DAILY [facility] Last Admin: 09/19/18 09:02 Dose: 40 mg NEW PRESCRIPTIONS: LASIX 40 MG DAILY ALDACTONE 25 MG DAILY DISCONTINUED MEDICATIONS: NONE DIET INSTRUCTIONS: HEART HEALTHY ACTIVITY: GRADUALLY RESUME TOLERATED. SMOKING: N/A DISEASE SPECIFIC EDUCATION: DIET NEW MEDICATIONS ELEVATE LEGS WEIGH DAILY APPOINTMENTS/TESTS HOSPITAL COURSE: This is an 83-year-old white male who presented to our office. He had been short of breath, had some mild chest pain for several days, hadn't been feeling well. He was a direct admit. BNP was elevated around 5,000. Chest x-ray showed vascular congestion. He was started on Lasix 40 mg IV. He has a history of atrial fibrillation/atrial flutter. He has been on Eliquis and this was continued. Routine telemetry orders showed that he was consistently in atrial fibrillation. Over the course of several days, his shortness of breath has improved. Repeat chest x-ray showed resolution of vascular congestion. Dr. Potts did an echo. There is questionable aortic stenosis. We scheduled him for complete echo at [facility] for the . We have also referred him to the [facility] Valvular Clinic for further evaluation. Echo here revealed ejection fraction 40% with LVH. Will discharge him home on Aldactone 25 mg daily along with Lasix 40 mg daily. His potassium has been stable on the Aldactone. Vital signs have been normal today. Hemoglobin 13, hematocrit 39, BUN 31, creatinine 1.28, sodium 135, potassium 4.2. He is discharged today in stable condition. Information regarding CHF has been provided and given. He has had a weight loss of 11 lbs noted since his admission. He is up and about walking. He has been eating well. Oxygen saturation has been good on room air, 95%. We have discussed weighing daily, weight gain greater than 3 lbs to report. Will followup with him in the office next week. TIME SPENT: More than 60 minutes. [facility]
== END 2018-09-19 12:25 | disposition home or self-care (01) | DRG 311 ==
LOC: SCU 10:00
PROVIDERS: ADMIT Internal Medicine; ATTEND Internal Medicine
DX: I20.9 Angina pectoris, unspecified (principal); I48.91 Unspecified atrial fibrillation; I73.9 Peripheral vascular disease, unspecified; I25.10 Atherosclerotic heart disease of native coronary artery without angina pectoris; I25.2 Old myocardial infarction; I10 Essential (primary) hypertension; E78.5 Hyperlipidemia, unspecified; J32.9 Chronic sinusitis, unspecified; J40 Bronchitis, not specified as acute or chronic; K21.9 Gastro-esophageal reflux disease without esophagitis; N18.2 Chronic kidney disease, stage 2 (mild); M19.90 Unspecified osteoarthritis, unspecified site; R07.81 Pleurodynia; R06.02 Shortness of breath; Z95.1 Presence of aortocoronary bypass graft; Z79.01 Long term (current) use of anticoagulants
CPT/HCPCS: 36415; 80053; 81001; 82550; 83880; 84443; 84484; 85025; 87081; 93005; 93010; 97802

== ENCOUNTER 2018-09-22 06:27 | Outpatient (CLI) ==
--- NOTE | 2018-09-22 08:33 | ECHO2D ---
Date of Exam: 09/22/18 Ordering Physician: DR. KALYAN POTTS Room #: OP Reason for Echo: MODERATE AORTIC STENOSIS, NEW ONSET CHF, SOB M-Mode Normal Adult Results LV Dimensions Normal Adult Results AoV Opening excursions >1.6 0.8 LVEDD-base- 3.5-5.8 4.6 Ao root dimensions 2.0-3.7 3.8 LVESD-base- 3.1-4.6 L. Atrium dimensions 1.9-3.8 4.5 Post. Wall thickness 0.8-1.1 1.3 IV septum (thickness) 0.7-1.2 1.3 Post. Wall excursion 0.72-1.3 NORMAL Septal motion 0.3 Systolic motion R. Ventricular cavity 1.5-2.0 NORMAL LVEF 60% 50% Paradoxical septal wall motion NORMAL 2-D : HYPOKINETIC SEPTUM-CALCIFIED AORTIC STENOSIS-ENLARGED LEFT ATRIAL CAVITY-- NORMAL MITRAL, TRICUSPID AND PULMONARY VALVES, NO THROMBUS, NO EFFUSION M-MODE: MV: NORMAL AV: CALCIFIC AORTIC STENOSIS MODERATE/SEVERE TV: NORMAL PV: NORMAL CHAMBER SIZE: ENLARGED LEFT ATRIAL CAVITY WALL MOTION: HYPOKINETIC SEPTAL WALL PERICARDIUM: -- INTERPRETATION: 1. LEFT VENTRICULAR HYPERTROPHY WITH ENLARGED LEFT ATRIAL CAVITY 2. HYPOKINETIC SEPTAL WALL--EJECTION FRACTION 50% 3. CALCIFIC AORTIC STENOSIS--MODERATE TO SEVERE 4. NORMAL LEFT VENTRICLE SIZE COMPLETE ECHO TO BE DONE AT [facility] IN A FEW DAYS MTDD
== END 2018-09-22 06:28 | disposition home or self-care (01) ==
LOC: CAR 06:27
PROVIDERS: ATTEND Internal Medicine
DX: I50.9 Heart failure, unspecified (principal); R06.02 Shortness of breath; I35.0 Nonrheumatic aortic (valve) stenosis

== ENCOUNTER 2018-11-06 06:46 | Outpatient (RCR) ==
[2018-12-02 08:48] VITALS: BP 102/54
== END 2018-12-06 23:59 ==
LOC: CAR.REHAB 06:46
PROVIDERS: ATTEND Internal Medicine
DX: I25.10 Atherosclerotic heart disease of native coronary artery without angina pectoris (principal); Z95.5 Presence of coronary angioplasty implant and graft
CPT/HCPCS: 93797

== ENCOUNTER 2020-05-09 12:17 | Inpatient (IN) ==
[2020-05-09] MEDS ORDERED: NORCO 5-325 PO PRN (13:00)
[2020-05-09] MEDS ORDERED: TYLENOL PO PRN (13:04)
[2020-05-09] MEDS ORDERED: NITROSTAT SL PRN (13:04)
[2020-05-09] MEDS ORDERED: VISTARIL INJ IM PRN (13:04)
[2020-05-09] MEDS ORDERED: ATROPINE SULFATE PFS IVP PRN (13:04)
[2020-05-09 13:24] LABS: BASOPHILS # (AUTO) 0.1 K/uL (0-0.2); BASOPHILS % (AUTO) 1.1 % (0.0-3.0); EOSINOPHILS # (AUTO) 0.4 K/ul (0.0-0.7); EOSINOPHILS % (AUTO) 7.2 % (0.0-7.0); HEMATOCRIT 32.9 % (42.0-52.0); HEMOGLOBIN 10.8 g/dl (14.0-18.0); IMMATURE GRANULOCYTE % (AUTO) 0.4 % (0.0-5.0); LYMPHOCYTES # (AUTO) 1.2 K/uL (0.60-3.4); LYMPHOCYTES % (AUTO) 22.3 (10.0-50.0); MEAN CORPUSCULAR HEMOGLOBIN 30.3 pg (27.0-31.0); MEAN CORPUSCULAR HGB CONC 32.8 (31.8-35.4); MEAN CORPUSCULAR VOLUME 92.2 fl (80.0-94.0); MONOCYTES # (AUTO) 0.7 K/uL (0.4-2.0); MONOCYTES % (AUTO) 12.4 (0-10); NEUTROPHILS # (AUTO) 3.2 K/ul (2.0-6.9); NEUTROPHILS % (AUTO) 56.6 % (42.2-75.2); PLATELET COUNT 258 10^3/uL (140-440); RDW COEFFICIENT OF VARIATION 15.7 % (11.6-14.8); RED BLOOD COUNT 3.57 10^6/ul (4.70-6.10); WHITE BLOOD COUNT 5.56 K/ul (4.2-10.2)
[2020-05-09 13:36] LABS: ALANINE AMINOTRANSFERASE 24.7 U/L (0-50); ALBUMIN 3.97 g/dL (3.5-5.0); ASPARTATE AMINO TRANSFERASE 57.3 U/L (17-59); BILIRUBIN,TOTAL 0.45 mg/dL (0.2-1.3); BLOOD UREA NITROGEN 24.5 mg/dL (9-20); CALCIUM 9.23 mg/dL (8.4-10.2); CHLORIDE 99.1 mmol/L (98-107); CREATININE 1.68 mg/dL (0.60-1.10); GLUCOSE 107.3 mg/dL (74-106); POTASSIUM 5.05 mmol/L (3.5-5.1); SODIUM 131.1 mmol/L (134.5-145); TOTAL PROTEIN 7.14 g/dL (6.3-8.2)
[2020-05-09 13:37] VITALS: BMI 30.2
[2020-05-09] MEDS: CLEOCIN 600 MG/50 ML D5W 600 MG/50 ML BAG IV SCH ×2 (14:12→20:35)
[2020-05-09 15:41] LABS: BILIRUBIN,URINE Negative (NEGATIVE); CLARITY,URINE Clear (CLEAR); COLOR,URINE Yellow (YELLOW); GLUCOSE, URINE (UA) Negative (NEGATIVE); KETONES,URINE Negative (NEGATIVE); LEUKOCYTE ESTERASE ,URINE Negative (NEGATIVE); NITRITE,URINE Negative (NEGATIVE); PH,URINE 7.5 (5-9); PROTEIN,URINE Negative (NEGATIVE); URINE, BLOOD Negative (NEGATIVE); UROBILINOGEN,URINE 0.2 (0.2)
--- NOTE | 2020-05-09 16:05 | DI ---
EXAM: CHEST FRONTAL VIEW HISTORY: Shortness of breath. COMPARISON: 01/07/2019 FINDINGS / IMPRESSION: Cardiomegaly, sternotomy wires and other postop changes are again noted and stable. Tiny left pleural effusion improved since prior study. Mild bibasilar density could represe nt atelectasis. Correlate clinically for pneumonia. No evidence of active congestive heart failure pneumothorax.
[2020-05-09] MEDS: COREG PO SCH (16:57)
[2020-05-09] MEDS: PLETAL PO SCH (20:35)
[2020-05-10 05:28] LABS: BASOPHILS # (AUTO) 0.1 K/uL (0-0.2); BASOPHILS % (AUTO) 0.9 % (0.0-3.0); EOSINOPHILS # (AUTO) 0.3 K/ul (0.0-0.7); HEMATOCRIT 33.1 % (42.0-52.0); HEMOGLOBIN 11.3 g/dl (14.0-18.0); IMMATURE GRANULOCYTE % (AUTO) 0.4 % (0.0-5.0); LYMPHOCYTES # (AUTO) 1.3 K/uL (0.60-3.4); LYMPHOCYTES % (AUTO) 23.5 (10.0-50.0); MEAN CORPUSCULAR HGB CONC 34.1 (31.8-35.4); MEAN CORPUSCULAR VOLUME 90.7 fl (80.0-94.0); MONOCYTES # (AUTO) 0.7 K/uL (0.4-2.0); MONOCYTES % (AUTO) 12.8 (0-10); NEUTROPHILS # (AUTO) 3.1 K/ul (2.0-6.9); NEUTROPHILS % (AUTO) 56.4 % (42.2-75.2); PLATELET COUNT 262 10^3/uL (140-440); RDW COEFFICIENT OF VARIATION 15.7 % (11.6-14.8); RED BLOOD COUNT 3.65 10^6/ul (4.70-6.10); WHITE BLOOD COUNT 5.54 K/ul (4.2-10.2)
[2020-05-10 05:39] LABS: ALANINE AMINOTRANSFERASE 25.2 U/L (0-50); ALBUMIN 3.99 g/dL (3.5-5.0); ALKALINE PHOSPHATASE 54.8 U/L (56-119); ASPARTATE AMINO TRANSFERASE 52.5 U/L (17-59); BILIRUBIN,TOTAL 0.62 mg/dL (0.2-1.3); BLOOD UREA NITROGEN 20.5 mg/dL (9-20); CALCIUM 9.22 mg/dL (8.4-10.2); CARBON DIOXIDE 20.4 mmol/L (22-30.0); CHLORIDE 102.5 mmol/L (98-107); CREATININE 1.37 mg/dL (0.60-1.10); GLUCOSE 81.1 mg/dL (74-106); POTASSIUM 4.9 mmol/L (3.5-5.1); SODIUM 132.5 mmol/L (134.5-145); TOTAL PROTEIN 7.1 g/dL (6.3-8.2)
[2020-05-10] MEDS: CLEOCIN 600 MG/50 ML D5W 600 MG/50 ML BAG IV SCH (05:47)
[2020-05-10] MEDS ORDERED: NON-FORMULARY MEDICATION (Omega-3 Fatty Acids-Fish Oil [Fish Oil] 1 EACH capsule) PO SCH (09:00)
[2020-05-10] MEDS ORDERED: NON-FORMULARY MEDICATION (Aspirin 81 mg Tablet) PO SCH (09:00)
--- NOTE | 2020-05-10 09:01 | PCM.PROG ---
Attending Provider: ATTENDING PROVIDER: Dr. KALYAN POTTS This patient is seen with Charlene Weeks, Nurse Practitioner. DATE OF SERVICE: 05/10/20 SUBJECTIVE: This 85 year old /WHITE M was hospitalized 05/09/20. The patient is resting comfortably. Oozing from arm is significantly better. The area seem to be drying. Original wound culture from ER is resistant to Clindamycin, treatable with Tetracycline. We will change the antibiotics. He has been afebrile and denies any pain. Bradycardia was noted on telemetry with one pause greater than 2 seconds, the patient was asymptomatic. REVIEW OF SYSTEMS: CONSTITUTIONAL: No night sweats. No fatigue, malaise, lethargy. No fever or chills. Weakness. HEENT: Eyes: No visual changes. No eye pain. No eye discharge. ENT: No runny nose. No epistaxis. No sinus pain. No odynophagia. No congestion. RESPIRATORY: No cough, no congestion. No hemoptysis. No shortness of breath. CARDIOVASCULAR: No angina symptoms. No CHF symptoms. No atypical chest pain for CAD. No palpitations. No orthopnea.. GASTROINTESTINAL: No abdominal pain. No nausea or vomiting. No diarrhea or constipation. No hematemesis. No hematochezia. GENITOURINARY: No urgency. No frequency. No dysuria. No hematuria. No obstructive symptoms. No discharge. No pain. No significant abnormal bleeding. MUSCULOSKELETAL: No musculoskeletal pain; no joint swelling. Right elbow pain. NEUROLOGICAL: Awake, alert, oriented to time, place and person. No headache. No neck pain. No syncope. No seizures. No dizziness. PSYCHIATRIC: Not anxious. No depression. No suicidal thoughts. No homicidal thoughts. SKIN: No rash. No lesions. No wounds. Multiple bruises. ENDOCRINE: No unexplained weight loss. No weight gain. HEMATOLOGIC/LYMPHATIC: No anemia. No purpura. No petechiae. No prolonged or excessive bleeding. No palpable lymph nodes. PHYSICAL EXAMINATION: GENERAL: The patient is awake, alert and oriented, lying in bed in no distress. VITAL SIGNS: Temperature 97.6 F, Pulse 61, Respiratory Rate 18, BP 121/72, Pulse Ox 96% HEENT: Head normocephalic, atraumatic. Eyes: Extraocular muscles are intact. Pupils are equal, round and reactive to light and accommodation. Ears: No lesions. Nose appeared normal. Throat: No exudate or erythema. NECK: Supple. No JVD, no carotid bruit. No lymphadenopathy or thyromegaly. LUNGS: Diminished breath sounds. Clear to auscultation. Percussion note normal. Chest symmetrical. HEART: Irregular heart rate. S1, S2, no S3. No murmurs. No cyanosis or clubbing. No ascites. Pulses: Dorsalis pedis and posterior tibial pulses +1 to +2 both sides. ABDOMEN: Soft. Non-tender. Bowel sounds active. No CVA tenderness. No mass felt. EXTREMITIES: No edema. Full range of motion of all extremities, equal. 4 inch abrasion right forearm with surrounding erythema, improved with sanguineous drainage. NEUROLOGIC: No focal deficit. Cranial nerves II through XII are grossly intact. No headache, no double vision or headache. SKIN: Not dry. Intact. Turgor-normal. LYMPHATIC: No palpable lymph nodes/no lymphedema. MUSCULOSKELETAL: Normal joints with no swelling. Muscle tone is normal. LAB REVIEW: 05/10/20 05:06 05/10/20 05:06 05/10/20 05:06: Sodium 132.5 L, Potassium 4.90, Chloride 102.5, Carbon Dioxide 20.4 L, Anion Gap 14.50, BUN 20.5 H, Creatinine 1.37 H, Estimated GFR (MDRD) 50.00, BUN/Creatinine Ratio 14.96, Glucose 81.1, Calcium 9.22, Total Bilirubin 0.62, AST 52.5, ALT 25.2, Alkaline Phosphatase 54.8 L, Total Protein 7.10, Albumin 3.99, Globulin 3.11, Albumin/Globulin Ratio 1.28 05/10/20 05:06: WBC 5.54, RBC 3.65 L, Hgb 11.3 L, Hct 33.1 L, MCV 90.7, MCH 31.0, MCHC 34.1, RDW Coeff of [place] 15.7 H, Plt Count 262, Immature Gran % (Auto) 0.4, Neut % (Auto) 56.4, Lymph % (Auto) 23.5, [place] % (Auto) 12.8 H, Eos % (Auto) 6.0, Baso % (Auto) 0.9, Neut # (Auto) 3.1, Lymph # (Auto) 1.3, [place] # (Auto) 0.7, Eos # (Auto) 0.3, Baso # (Auto) 0.1, Immature Gran # (Auto) 0.0 05/09/20 15:32: Urine Color Yellow, Urine Clarity Clear, Urine pH 7.5, Ur Specific North 1.020, Urine Protein Negative, Urine Glucose (UA) Negative, Urine Ketones Negative, Urine Blood Negative, Urine Nitrite Negative, Urine B ilirubin Negative, Urine Urobilinogen 0.2, Ur Leukocyte Esterase Negative 05/09/20 13:20: Sodium 131.1 L, Potassium 5.05, Chloride 99.1, Carbon Dioxide 25.0, Anion Gap 12.05, BUN 24.5 H, Creatinine 1.68 H, Estimated GFR (MDRD) 39.00, BUN/Creatinine Ratio 14.58, Glucose 107.3 H, Calcium 9.23, Total B ilirubin 0.45, AST 57.3, ALT 24.7, Alkaline Phosphatase 54.0 L, Total Protein 7.14, Albumin 3.97, Globulin 3.17, Albumin/Globulin Ratio 1.25 05/09/20 13:20: WBC 5.56, RBC 3.57 L, Hgb 10.8 L, Hct 32.9 L, MCV 92.2, MCH 30.3, MCHC 32.8, RDW Coeff of [place] 15.7 H, Plt Count 258, Immature Gran % (Auto) 0.4, Neut % (Auto) 56.6, Lymph % (Auto) 22.3, [place] % (Auto) 12.4 H, Eos % (Auto) 7.2 H, Baso % (Auto) 1.1, Neut # (Auto) 3.2, Lymph # (Auto) 1.2, [place] # (Auto) 0.7, Eos # (Auto) 0.4, Baso # (Auto) 0.1, Immature Gran # (Auto) 0.0 ASSESSMENT: Please see below. 1. Right arm abrasion with surrounding cellulitis 2. Status post fall 3. Atrial fibrillation 4. Asymptomatic bradycardia PLAN: 1. Discontinue Clindamycin 2. Start Doxycycline 100mg IV Q 12 hours 3. Leave would open to air and elevate 4. 24 hours Holter Monitor Plan and coordination of the patient's care discussed in the presence of Hairspring Adjuster and nurse. SCRIBED BY: AURY WOODARD Brick Baker scribed while in presence of service performed by Dr. Potts/Charlene Weeks APRN on 05/10/20 ([id number])
[2020-05-10] MEDS: LASIX TAB PO SCH (09:41)
[2020-05-10] MEDS: COREG PO SCH ×2 (09:41→16:35)
[2020-05-10] MEDS: PLETAL PO SCH ×2 (09:41→20:40)
[2020-05-10] MEDS: OMEGA-3 FISH OIL PO SCH (09:41)
[2020-05-10] MEDS: FLOMAX PO SCH (09:41)
[2020-05-10] MEDS: ALDACTONE PO SCH (09:41)
[2020-05-10] MEDS: TRIGLIDE PO SCH (09:42)
[2020-05-10] MEDS: PRAVACHOL PO SCH (09:42)
[2020-05-10] MEDS: ASPIRIN EC PO SCH (09:42)
[2020-05-10] MEDS: XARELTO PO SCH (09:43)
[2020-05-10] MEDS: DOXY-100 100 MG in SODIUM CHLORIDE 100 ML IV SCH ×2 (09:44→20:57)
--- NOTE | 2020-05-10 13:14 | RS.PTINEVL ---
Subjective - Patient information Date of Evaluation: 05/10/20 Date of Arrival on Unit: 05/09/20 Admitted From:: Home Diagnosis: R elbow wound infection, s/p fall Usual Living Arrangement: With Spouse Living Arrangement Comments: Lives with and adult son Home Environment: House, Stairs (few), Rail Medical History: Hypertension, CHF, Arthritis Medical History Comments:: aortic valve stenosis, ischemic cardiomyopathy, CAD, [place], GERD LATEX ALLERGY?: No Surgical History: CABG Surgical History Comments:: AAA repair, transcatheter aortic valve replacement Medications: see chart Subjective Information/ Patient Comments:: pt states that he is not sure how he fell. States he doesn't use AD at home and doesn't feel he needs one. He did report that he had assist from and son to get up from floor. He reports that he uses his lift chair at home. - Level of function Prior to this admission, the patient could do the following:: Independent Selfcare, Independent ADL's, Independent Ambulation, Drive Abilities prior to this admission: amb without AD. Lift chair used at home. Current Level of Function: Partially Dependent Current Equipment Used at Home: lift chair Pain Assessement - Location R elbow Description: Aching Interventions - Objective Patient Orientation: Person, Place, Time, Situation Current Interventions: IV's, Telemetry Observation: pt with bruising noted to forehead, R scapula and R ant tib. Range of Motion - ROM Right Upper Extremity AROM: Moderate limitation (pt limited with shld ROM) Left Upper Extremity AROM: Moderate limitation (pt limited with shld ROM) Right Lower Extremity AROM: WFL's Left Lower Extremity AROM: WFL's Muscle Strength - Muscle Strength Right Upper Extremity Strength: Mild Weakness (shld flex 3-/5, elbow flex/ext 3/5) Left Upper Extremity Strength: Mild Weakness (shld flex 3-/5, elbow flex/ext 4- /5) Right Lower Extremity Strength: Mild Weakness (hip flex 4-/5, knee flex/ ext 4/5, ankle DF/PF 4/5) Left Lower Extremity Strength: Mild Weakness (hip flex 4-/5, knee flex/ ext 4/5, ankle DF/PF 4/5) Sensation - Sensation Right Upper Extremity Sensation: Intact/Normal Left Upper Extremity Sensation: Intact/Normal Right Lower Extremity Sensation: Intact/Normal Left Lower Extremity Sensation: Intact/Normal Palpation Palpation Findings: Tenderness (R elbow, scapula) Balance - Sitting Balance and Reactions Static Sitting Balance: Good Dynamic Sitting Balance: Fair - Standing Balance and Reactions Static Standing Balance: Poor Dynamic Standing Balance: Poor Standing Equilibrium Reactions: Delayed Left, Delayed Right Standing Protective Reactions: Delayed Left, Delayed Right Functional Mobility - Bed Mobility Rolling R/L: Min Assist Supine to Sit: Min Assist, 1 person assist - Transfers Sit to Stand: CGA, 1 person assist Stand to Sit: CGA, 1 person assist - Safety Awareness Safety Awareness: Fair CK INDEX SCORE: n/a Ambulation - Ambulation Assistive Device Used: No Assistive Device Orthotic/Prosthetic Device: No Distance: 120ft Assistance needed with Ambulation: CGA Gait Deviations: Forward posture, Short stride Ambulation Comments: pt amb with increased lat sway Factors Affecting Ambulation: Decreased Balance, Weakness, Limited Endurance Treatment time - Time with patient Length of Evaluation: 21 Total treatment time: 24 Patient Education - Education Patient Education: Activity Modification, Education of Plan of Care Teaching Recipient: Patient Teaching Methods: Discussion Comments: discussion regarding POC Assessment - Assessment Problem List:: Decreased level of function, Requires training/education, Decreased safety/Risk of falls, Weakness Rehab Potential: Good Further Therapy Indicated?: Yes Candidate for Swing Bed for Therapy Services?: Feel pt may not be a candidate for swing bed due to pt at high functional level. However feel pt would benefit from PT for therex for strengthening, balance activities. May benefit from home health PT for home safety. Evaluation Complexity: HISTORY: Medium, EXAM OF BODY SYSTEMS: Medium, CLINICAL PRESENTATION: Medium, CLINICAL DECISION MAKING: Medium Patient's Goal(s): Get stronger and go home. Short Term Goals GOAL #1: pt independent with rolling, and positioning in bed Goal to be met by: 05/12/20 GOAL #2: pt transfer sup to/from sit CGA Goal to be met by: 05/12/20 GOAL #3: Transfer sit to/from stand SBA Goal to be met by: 05/12/20 GOAL #4: pt amb 140ft with/without AD with CGA to SBA Goal to be met by: 05/12/20 GOAL #5: Improve BLE strength 4/5 Goal to be met by: 05/12/20 Shelter Goals GOAL #1: pt transfer sup to/from sit to/from stand independently Goal to be met by: 05/14/20 GOAL #2: pt amb functional household distances SBA to independent Goal to be met by: 05/14/20 GOAL #3: Dyn stand balance fair Goal to be met by: 05/14/20 Plan Plan of Care: Therapeutic EX, Therapeutic Activity Other:: gait training Frequency of Treatment: 1-2 X day, as tolerated Duration of Treatment: 4 days Anticipated Discharge Destination: Home Treatment Diagnosis (ICD 10 Codes): fall R 29.6. balance impaired R 26.81. weakness M62.81. gait difficulty R 26.2 Has the Physician been added for Co-signature?: Yes
--- NOTE | 2020-05-10 14:28 | HP ---
DATE OF SERVICE: 05/09/2020 REASON FOR HOSPITALIZATION/HISTORY OF PRESENT ILLNESS: The patient was here to recheck abrasion right arm, still oozing and painful. No signs or symptoms of CHF/CAD/COVID. PAST MEDICAL HISTORY/PAST SURGICAL HISTORY: CAD Atrial fibrillation/flutter Right cataract surgery Noncompliant with medications Systolic CHF Ischemic cardiomyopathy Status post TAVR- Dr. Acosta, 12/25 [facility] History of severe Chronic kidney disease stage 3 Dizziness PAD with Claudication Hypertension Dyslipidemia BMI 32 AAA Repair CABG EF 45% CAD with [place] 1981 GERD DJD spine Chronic bronchitis. REVIEW OF SYSTEMS: CONSTITUTIONAL: No fever, no fatigue. HEENT: No sinus drainage, no sore throat. RESPIRATORY: No cough, no congestion. CARDIOVASCULAR: No atypical chest pain for coronary artery disease. No angina, CHF symptoms, palpitations or shortness of breath. GASTROINTESTINAL: No melena or abdominal pain. No GERD. GENITOURINARY: No hematuria, no prostatism, no polyuria. 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 MUSCULOSKELETAL: No osteoarthritis pain, no joint swelling. ENDOCRINE: No weight loss, no weight gain. SKIN: Not dry, no rash. PSYCHIATRIC: Not anxious, no depression, no suicidal thoughts, no homicidal thoughts. SOCIAL HISTORY: Marital Status: . Alcohol Usage:No. Tobacco Usage:No. MEDICATIONS: Pletal 50mg BID PreserVision BID Coreg 12.5mg BID Xarelto 15mg daily Fenofibrate 160mg daily Pravachol 80mg PO daily Fish oil 1000mg two daily Lasix 40mg PO daily Aldactone 20mg PO daily Flomax 0.4mg PO daily Aspirin 81mg PO daily ALLERGIES: No known drug allergies PHYSICAL EXAMINATION: V/S: Pulse 59, blood pressure 108/66, temperature 97.2, oxygen saturation 98%, BMI 30.2, height 5'6, weight 187.4. GENERAL APPEARANCE: Oriented times three. HEENT: Normal. NECK: No JVP, no bruits. RESPIRATORY: Lungs are clear. CARDIOVASCULAR: S1, S2, no S3, Grade I/ murmur. No cyanosis, clubbing. No ascites. GI/ABDOMEN: No tenderness. Bowel sounds are active. EXTREMITIES: edema, pulses +1, equal. 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 PROSTATE: 10/23 (0.1). EGD 12/23 Dr. Hinkle. ASSESSMENT: 1. Abrasion right arm with cellulitis 2. Status post fall 3. CAD 4. Atrial fibrillation/flutter 5. Right cataract surgery 6. Noncompliant with medications 7. Systolic CHF 8. Ischemic cardiomyopathy 9. Status post RAVR- Dr. Yanez 12/25 [place] 10.History of severe 11.Chronic kidney disease stage 3 12.Dizziness 13.PAD with Claudication 14.Hypertension 15.Dyslipidemia 16.BMI 32 17.AAA Repair 18.CABG EF 45% 19.CAD with [place] 1981 20.GERD 21.DJD spine 22.Chronic bronchitis. PLAN: 1. Routine telemetry orders 2. No cardiac markers 3. COVID test by PCR, sent through tent 4. CBC, CMP now and daily 5. Wound cultures, right arm 6. Clindamycin 800mg IV Q 8 hours 7. Continue Home medications 8. Elevate right arm, leave open to air 9. Regular diet 10.Fall precautions. 11.[place] 4mg BID PRN PO TIME SPENT: More than 70 minutes. MTDD
--- NOTE | 2020-05-10 14:45 | PN ---
DATE OF SERVICE: 05/09/20 SUBJECTIVE: The patient was seen and examined in the office along with the nurse practitioner. History and Physical was done. PLAN: 1. Will put him on antibiotics for mild cellulitis. 2. The ulcer on the right elbow area is red with overgrowth of granulation tissue, soft eschar in the middle which doesn't seem to be infected. The size of the ulcer is 4 inches by 3 inches oblong. 3. The patient's cardiovascular status is stable. TIME SPENT: More than 30 minutes. Plan and coordination of the patient's care discussed in the presence of nurse. FIOR
--- NOTE | 2020-05-10 14:46 | PN ---
DATE OF SERVICE: 05/10/2020 SUBJECTIVE: The patient was seen and examined with the Nurse Practitioner. The patient's condition has improved. His ulcer is much rn family practice now. We will treat the over growth of granulation tissue by silver nitrate application. The patient is going to be continue on Antibiotics. The patient's ulcer is now flat and looking a lot better. Cardiovascular status is stable. COVID negative. TIME SPENT: More than 30 minutes. Plan and coordination of the patient's care discussed in the presence of nurse. FIOR
[2020-05-11 05:20] LABS: BASOPHILS # (AUTO) 0.1 K/uL (0-0.2); BASOPHILS % (AUTO) 1.1 % (0.0-3.0); EOSINOPHILS # (AUTO) 0.4 K/ul (0.0-0.7); EOSINOPHILS % (AUTO) 7.5 % (0.0-7.0); HEMATOCRIT 34.2 % (42.0-52.0); HEMOGLOBIN 11.4 g/dl (14.0-18.0); IMMATURE GRANULOCYTE % (AUTO) 0.4 % (0.0-5.0); LYMPHOCYTES # (AUTO) 1.4 K/uL (0.60-3.4); LYMPHOCYTES % (AUTO) 26.7 (10.0-50.0); MEAN CORPUSCULAR HEMOGLOBIN 30.2 pg (27.0-31.0); MEAN CORPUSCULAR HGB CONC 33.3 (31.8-35.4); MEAN CORPUSCULAR VOLUME 90.7 fl (80.0-94.0); MONOCYTES # (AUTO) 0.7 K/uL (0.4-2.0); MONOCYTES % (AUTO) 13.5 (0-10); NEUTROPHILS # (AUTO) 2.7 K/ul (2.0-6.9); NEUTROPHILS % (AUTO) 50.8 % (42.2-75.2); PLATELET COUNT 272 10^3/uL (140-440); RDW COEFFICIENT OF VARIATION 15.9 % (11.6-14.8); RED BLOOD COUNT 3.77 10^6/ul (4.70-6.10); WHITE BLOOD COUNT 5.32 K/ul (4.2-10.2)
[2020-05-11 05:30] LABS: ALANINE AMINOTRANSFERASE 24.3 U/L (0-50); ALBUMIN 4.12 g/dL (3.5-5.0); ALKALINE PHOSPHATASE 59.5 U/L (56-119); ASPARTATE AMINO TRANSFERASE 54.7 U/L (17-59); BILIRUBIN,TOTAL 0.72 mg/dL (0.2-1.3); BLOOD UREA NITROGEN 25.7 mg/dL (9-20); CALCIUM 9.57 mg/dL (8.4-10.2); CARBON DIOXIDE 22.8 mmol/L (22-30.0); CHLORIDE 101.8 mmol/L (98-107); CREATININE 1.49 mg/dL (0.60-1.10); GLUCOSE 82.2 mg/dL (74-106); POTASSIUM 4.46 mmol/L (3.5-5.1); SODIUM 132.9 mmol/L (134.5-145); TOTAL PROTEIN 7.45 g/dL (6.3-8.2)
[2020-05-11] MEDS: LASIX TAB PO SCH (05:59)
[2020-05-11] MEDS: XARELTO PO SCH (08:32)
[2020-05-11] MEDS: ASPIRIN EC PO SCH (08:32)
[2020-05-11] MEDS: DOXY-100 100 MG in SODIUM CHLORIDE 100 ML IV SCH ×2 (08:32→20:55)
[2020-05-11] MEDS: COREG PO SCH ×2 (08:33→17:12)
[2020-05-11] MEDS: TRIGLIDE PO SCH (08:34)
[2020-05-11] MEDS: PRAVACHOL PO SCH (08:34)
[2020-05-11] MEDS: FLOMAX PO SCH (08:34)
[2020-05-11] MEDS: ALDACTONE PO SCH (08:35)
[2020-05-11] MEDS: PLETAL PO SCH ×2 (08:35→20:54)
[2020-05-11] MEDS: OMEGA-3 FISH OIL PO SCH (08:46)
[2020-05-11] MEDS: LOTRISONE 45 GM TP SCH (21:00)
[2020-05-11] MEDS ORDERED: LOTRISONE 45 GM TP SCH (21:00)
[2020-05-12 05:52] VITALS: BP 133/82; TEMP 97.4
[2020-05-12] MEDS: LASIX TAB PO SCH (05:52)
[2020-05-12 05:57] LABS: BASOPHILS # (AUTO) 0.1 K/uL (0-0.2); BASOPHILS % (AUTO) 0.8 % (0.0-3.0); EOSINOPHILS # (AUTO) 0.4 K/ul (0.0-0.7); EOSINOPHILS % (AUTO) 7.3 % (0.0-7.0); HEMATOCRIT 32.5 % (42.0-52.0); HEMOGLOBIN 11.2 g/dl (14.0-18.0); IMMATURE GRANULOCYTE % (AUTO) 0.2 % (0.0-5.0); LYMPHOCYTES # (AUTO) 1.4 K/uL (0.60-3.4); LYMPHOCYTES % (AUTO) 22.9 (10.0-50.0); MEAN CORPUSCULAR HEMOGLOBIN 30.8 pg (27.0-31.0); MEAN CORPUSCULAR HGB CONC 34.5 (31.8-35.4); MEAN CORPUSCULAR VOLUME 89.3 fl (80.0-94.0); MONOCYTES # (AUTO) 0.9 K/uL (0.4-2.0); MONOCYTES % (AUTO) 15.3 (0-10); NEUTROPHILS # (AUTO) 3.2 K/ul (2.0-6.9); NEUTROPHILS % (AUTO) 53.5 % (42.2-75.2); PLATELET COUNT 242 10^3/uL (140-440); RDW COEFFICIENT OF VARIATION 15.7 % (11.6-14.8); RED BLOOD COUNT 3.64 10^6/ul (4.70-6.10)
[2020-05-12 06:07] LABS: ALANINE AMINOTRANSFERASE 23.6 U/L (0-50); ALBUMIN 3.76 g/dL (3.5-5.0); ALKALINE PHOSPHATASE 55.5 U/L (56-119); ASPARTATE AMINO TRANSFERASE 54.5 U/L (17-59); BILIRUBIN,TOTAL 0.65 mg/dL (0.2-1.3); CALCIUM 9.48 mg/dL (8.4-10.2); CARBON DIOXIDE 20.6 mmol/L (22-30.0); CHLORIDE 103.4 mmol/L (98-107); CREATININE 1.43 mg/dL (0.60-1.10); GLUCOSE 92.4 mg/dL (74-106); POTASSIUM 4.25 mmol/L (3.5-5.1); SODIUM 133.4 mmol/L (134.5-145); TOTAL PROTEIN 6.91 g/dL (6.3-8.2)
--- NOTE | 2020-05-12 08:40 | PCM.PROG ---
Attending Provider: ATTENDING PROVIDER: Dr. KALYAN POTTS This patient is seen with hCarlene Weeks, Nurse Practitioner. DATE OF SERVICE: 05/12/20 SUBJECTIVE: This 85 year old /WHITE M was hospitalized 05/09/20. The patient is resting comfortably. Right arm is significantly improved. Less swelling, scant amount of drainage, erythema has resolved. Pain has improved. REVIEW OF SYSTEMS: CONSTITUTIONAL: No night sweats. No fatigue, malaise, lethargy. No fever or chills. Weakness. HEENT: Eyes: No visual changes. No eye pain. No eye discharge. ENT: No runny nose. No epistaxis. No sinus pain. No odynophagia. No congestion. RESPIRATORY: No cough, no congestion. No hemoptysis. No shortness of breath. CARDIOVASCULAR: No angina symptoms. No CHF symptoms. No atypical chest pain for CAD. No palpitations. No orthopnea.. GASTROINTESTINAL: No abdominal pain. No nausea or vomiting. No diarrhea or constipation. No hematemesis. No hematochezia. GENITOURINARY: No urgency. No frequency. No dysuria. No hematuria. No obstructive symptoms. No discharge. No pain. No significant abnormal bleeding. MUSCULOSKELETAL: No musculoskeletal pain; no joint swelling. NEUROLOGICAL: Awake, alert, oriented to time, place and person. No headache. No neck pain. No syncope. No seizures. No dizziness. PSYCHIATRIC: Not anxious. No depression. No suicidal thoughts. No homicidal thoughts. SKIN: No rash. No lesions. No wounds. ENDOCRINE: No unexplained weight loss. No weight gain. HEMATOLOGIC/LYMPHATIC: No anemia. No purpura. No petechiae. No prolonged or excessive bleeding. No palpable lymph nodes. PHYSICAL EXAMINATION: GENERAL: The patient is awake, alert and oriented, lying in bed in no distress. VITAL SIGNS: Temperature 97.4 F, Pulse 60, Respiratory Rate 16, BP 133/82, Pulse Ox 98% HEENT: Head normocephalic, atraumatic. Eyes: Extraocular muscles are intact. Pupils are equal, round and reactive to light and accommodation. Ears: No lesions. Nose appeared normal. Throat: No exudate or erythema. NECK: Supple. No JVD, no carotid bruit. No lymphadenopathy or thyromegaly. LUNGS: Diminished breath sounds. Clear to auscultation. Percussion note normal. Chest symmetrical. HEART: S1, S2, no S3. Grade I murmurs. No cyanosis or clubbing. No ascites. Pulses: Dorsalis pedis and posterior tibial pulses +1 to +2 both sides. ABDOMEN: Soft. Non-tender. Bowel sounds active. No CVA tenderness. No mass felt. EXTREMITIES: No edema. Full range of motion of all extremities, equal. NEUROLOGIC: No focal deficit. Cranial nerves II through XII are grossly intact. No headache, no double vision or headache. SKIN: Not dry. Intact. Turgor-normal. 3.5in abrasion right forearm with minimal erythema drying scab and granulation has improved. LYMPHATIC: No palpable lymph nodes/no lymphedema. MUSCULOSKELETAL: Normal joints with no swelling. Muscle tone is normal. LAB REVIEW: 05/12/20 05:45 05/12/20 05:45 05/12/20 05:45: Sodium 133.4 L, Potassium 4.25, Chloride 103.4, Carbon Dioxide 20.6 L, Anion Gap 13.65, BUN 29.0 H, Creatinine 1.43 H, Estimated GFR (MDRD) 47.00, BUN/Creatinine Ratio 20.27, Glucose 92.4, Calcium 9.48, Total Bilirubin 0.65, AST 54.5, ALT 23.6, Alkaline Phosphatase 55.5 L, Total Protein 6.91, Albumin 3.76, Globulin 3.15, Albumin/Globulin Ratio 1.19 05/12/20 05:45: WBC 5.90, RBC 3.64 L, Hgb 11.2 L, Hct 32.5 L, MCV 89.3, MCH 30.8, MCHC 34.5, RDW Coeff of [place]aritza 15.7 H, Plt Count 242, Immature Gran % (Auto) 0.2, Neut % (Auto) 53.5, Lymph % (Auto) 22.9, [place] % (Auto) 15.3 H, Eos % (Auto) 7.3 H, Baso % (Auto) 0.8, Neut # (Auto) 3.2, Lymph # (Auto) 1.4, [place] # (Auto) 0.9, Eos # (Auto) 0.4, Baso # (Auto) 0.1, Immature Gran # (Auto) 0.0 ASSESSMENT: Please see below. 1. Right arm abrasion with cellulitis, status post fall 2. Chronic kidney disease stage 3 3. Atrial fibrillation PLAN: 1. Discharge home 2. Doxycycline 100mg BID for 7 days 3. Leave wound to air 4. The patient prefers outpatient therapy for PT/OT. Dr. Potts and Charlene Weeks are agreeable. Plan and coordination of the patient's care discussed in the presence of Prize Coordinator and nurse. SCRIBED BY: AURY WOODARD Charge Entry scribed while in presence of service performed by Dr. Potts/Charlene Weeks, HEATHER on 05/12/20 ([id number])
[2020-05-12] MEDS: XARELTO PO SCH (08:55)
[2020-05-12] MEDS: ASPIRIN EC PO SCH (08:55)
[2020-05-12] MEDS: PRAVACHOL PO SCH (08:56)
[2020-05-12] MEDS: ALDACTONE PO SCH (08:56)
[2020-05-12] MEDS: OMEGA-3 FISH OIL PO SCH (08:56)
[2020-05-12] MEDS: PLETAL PO SCH (08:56)
[2020-05-12] MEDS: FLOMAX PO SCH (08:56)
[2020-05-12] MEDS: TRIGLIDE PO SCH (08:56)
[2020-05-12] MEDS: COREG PO SCH (08:56)
[2020-05-12] MEDS: DOXY-100 100 MG in SODIUM CHLORIDE 100 ML IV SCH (08:57)
[2020-05-12] MEDS: LOTRISONE 45 GM TP SCH (08:58)
--- NOTE | 2020-05-12 11:28 | CM.DICTOOL ---
ADMISSION: 05/09/20 12:17 DISCHARGE: MAY 12, 2020 DATE OF SERVICE: 05/12/20 FINAL DIAGNOSIS ABRASION RIGHT ARM WITH CELLULITIS S/P FALL 04/28/2020 CAD HISTORY: ATRIAL FIB/FLUTTER (ON ELIQUIS) SYSTOLIC CHF ISCHEMIC CARDIOMYOPATHY SEVERE AORTIC STENOSIS CHRONIC KIDNEY DISEASE, STAGE 3 PERIPHERAL ARTERY DISEASE WITH CLAUDICATION HYPERTENSION [place] (1981) DYSLIPIDEMIA NON-COMPLIANCE WITH MEDS BMI 32 GERD DJD SPINE CHRONIC BRONCHITIS CATARACT EXTRACTION, RIGHT ENDOSCOPY WITH ESOPHAGEAL BIOPSY AND [place] DILATATION (DR. MCCAULEY, 2017) TAVR PROCEDURE (DR. MANN, 2019) AAA REPAIR ECHOCARDIOGRAM: (July,) ENLARGED LEFT ATRIAL CAVITY (5.6 CM) BORDERLINE LVH HYPOKINETIC SEPTAL WALL LVEF 60% TAVR PROCEDURE- NORMAL VALVE STRUCTURE/NORMAL AORTIC ROOT LAST VITALS Temp Pulse Resp BP Pulse Ox 97.4 F L 60 16 133/82 98 05/12/20 05:51 05/12/20 05:51 05/12/20 05:51 05/12/20 05:51 05/12/20 05:51 TAKE THESE MEDICATIONS AT HOME Carvedilol (Carvedilol 12.5 Mg Tablet) 12.5 mg PO BIDWM [facility] Last Admin: 05/12/20 08:56 Dose: 12.5 mg Documented by: Cilostazol (Cilostazol 100 Mg Tablet) 50 mg PO BID [facility] Last Admin: 05/12/20 08:56 Dose: 50 mg Documented by: Fenofibrate (Fenofibrate 160 Mg Tablet) 160 mg PO DAILY [facility] Last Admin: 05/12/20 08:56 Dose: 160 mg Documented by: Fish Oil ([place]-3/Dha/Epa/Fish Oil 1,000 Mg Capsule) 2,000 mg PO DAILY [facility] Last Admin: 05/12/20 08:56 Dose: 2,000 mg Documented by: Furosemide (Furosemide 40 Mg Tablet) 40 mg PO QDAC [facility] Last Admin: 05/12/20 05:52 Dose: 40 mg Documented by: Doxycycline Hyclate 100 mg PO Q12HR [facility] for 7 days (new) Stop: Last Admin: Documented by: Non-Formulary Medication (Vit C-Vit N-Gjovwv-Cugq-Lutein [Preservision Lutein]) 1 cap PO BID [facility] Last Admin: 05/12/20 10:08 Dose: Not Given Documented by: Pravastatin Sodium (Pravastatin Sodium 40 Mg Tablet) 80 mg PO DAILY [facility] Last Admin: 05/12/20 08:56 Dose: 80 mg Documented by: Rivaroxaban (Rivaroxaban 10 Mg Tablet) 15 mg PO DAILY [facility] Last Admin: 05/12/20 08:55 Dose: 15 mg Documented by: Spironolactone (Spironolactone 25 Mg Tablet) 25 mg PO DAILY [facility] Last Admin: 05/12/20 08:56 Dose: 25 mg Documented by: Tamsulosin HCl (Tamsulosin Hcl 0.4 Mg Cap.Er.24h) 0.4 mg PO DAILY [facility] Last Admin: 05/12/20 08:56 Dose: 0.4 mg Documented by: ALLERGIES No Known Allergies Allergy (Verified 05/06/20 08:39) DISCONTINUED MEDICATION: ASPIRIN 81 MG DAILY NEW PRESCRIPTIONS: DOXYCYCLINE 100 MG PO BID FOR 7 DAYS #14 SMOKING: NOT APPLICABLE DISEASE SPECIFIC EDUCATION: NEW MEDICATION APPOINTMENTS WOUND CARE INSTRUCTIONS LAB REVIEW: 05/12/20 05:45 05/12/20 05:45 05/12/20 05:45: Sodium 133.4 L, Potassium 4.25, Chloride 103.4, Carbon Dioxide 20.6 L, Anion Gap 13.65, BUN 29.0 H, Creatinine 1.43 H, Estimated GFR (MDRD) 47.00, BUN/Creatinine Ratio 20.27, Glucose 92.4, Calcium 9.48, Total Bilirubin 0.65, AST 54.5, ALT 23.6, Alkaline Phosphatase 55.5 L, Total Protein 6.91, Albumin 3.76, Globulin 3.15, Albumin/Globulin Ratio 1.19 05/12/20 05:45: WBC 5.90, RBC 3.64 L, Hgb 11.2 L, Hct 32.5 L, MCV 89.3, MCH 30.8, MCHC 34.5, RDW Coeff of [place]aritza 15.7 H, Plt Count 242, Immature Gran % (Auto) 0.2, Neut % (Auto) 53.5, Lymph % (Auto) 22.9, [place] % (Auto) 15.3 H, Eos % (Auto) 7.3 H, Baso % (Auto) 0.8, Neut # (Auto) 3.2, Lymph # (Auto) 1.4, [place] # (Auto) 0.9, Eos # (Auto) 0.4, Baso # (Auto) 0.1, Immature Gran # (Auto) 0.0 PLAN: DISCHARGE: HOME WITH SPOUSE DIET: REGULAR TOLERATED ACTIVITY: RESUME TOLERATED AN APPOINTMENT IS SCHEDULED FOR OUTPATIENT PHYSICAL THERAPY EVALUATION AT [facility] ON May AT 10 AM. AN APPOINTMENT IS SCHEDULED FOR May AT 10:[address] POTTS/TRAV GARNER APRN/ERICK CHOUDHURY APRN WOUND CARE INSTRUCTIONS: LEAVE WOUND ON RIGHT ARM OPEN TO AIR ELEVATE THE RIGHT ARM ON A PILLOW DO NOT APPLY OINTMENTS, DO NOT SCRUB THE WOUND LEAVE SCAB INTACT DO NOT APPLY A DRESSING UNLESS YOU WILL BE ENGAGING IN AN ACTIVITY THAT COULD DISLODGE THE SCAB CODE STATUS: DO NOT RESUSCITATE MR. DASILVA IS ALERT AND ORIENTED X 4. HE IS AMBULATORY IN THE ROOM WITHOUT USE OF AN ASSISTIVE DEVICE. HE AMBULATES PER SELF OR WITH SBA OF ONE STAFF MEMBER. HIS GAIT IS SLOW AND STEADY. HE WAS SEEN BY PHYSICAL THERAPY WHILE HOSPITALIZED; HE WILL BE SEEN AN OUTPATIENT (PER HIS REQUEST) AFTER DISCHARGE. MR. DASILVA IS AGREEABLE TO PLANS FOR DISCHARGE HOME TODAY. HE LIVES WITH HIS AND IS INDEPENDENT WITH ADL'S. MR. DASILVA HAS A GOOD APPETITE AND CONSUMES 25-100% OF HIS MEALS. HE IS CONTINENT OF BOWEL AND BLADDER. HYDRATION STATUS IS GOOD. SKIN IS INTACT EXCEPT FOR A LACERATION TO THE RIGHT FOREARM THAT IS SCABBED AND WITHOUT DRAINAGE TODAY. MR. DASILVA HAS BEEN INSTRUCTED ON WOUND INSTRUCTIONS. HE DENIES PAIN TO THE RIGHT ARM. FADING AREAS OF ECCHYMOSIS ARE NOTED TO THE FOREHEAD, RIGHT SCAPULAR AREA AND RIGHT BUTTOCK. MD TRAV WHITTAKER APRN
--- NOTE | 2020-05-12 11:57 | HOLTER ---
PATIENT INFORMATION AND COMMENTS Attending Physician: DR. KALYAN POTTS Indications: IRREGULAR HEART RHYTHM __ Patient Medications: ASA, XARELTO, FLOMAX __ Pre-procedure Summary: Protocol: Standard Heart Rate Started: 05/10/2020 1422 Minimum: 41 BPM Weight: 187 LBS Ended: 05/11/2020 1209 Maximum: 120 BPM Height: 66" Duration: 22 HOURS Average: 66 BPM _ INTERPRETATIONS/OBSERVATIONS: 1. BASIC RHYTHM: ATRIAL FIBRILLATION, RATE 40 BPM TO 120 BPM, AVERAGE 66 BPM 2. INFREQUENT PVC'S 3. NO ST-T WAVE CHANGES FROM BASELINE 4. THREE PAUSES OF GREATER THAN 2.0 SECONDS NOTED. LONGEST 2.56 SECONDS 5. ACTIVITY LOG NOT AVAILABLE MTDD
--- NOTE | 2020-05-17 09:57 | DS ---
DATE OF SERVICE: 05/12/20 FINAL DIAGNOSIS: 1. ABRASION RIGHT ARM WITH CELLULITIS 2. S/P FALL 04/28/2020 3. CAD HISTORY: 4. ATRIAL FIB/FLUTTER(ON ELIQUIS) 5. SYSTOLIC CHF 6. ISCHEMIC CARDIOMYOPATHY 7. SEVERE AORTIC STENOSIS 8. CHRONIC KIDNEY DISEASE, STAGE 3 9. PERIPHERAL ARTERY DISEASE WITH CLAUDICATION 10. HYPERTENSION 11. [place] (1982) 12. DYSLIPIDEMIA 13. NON-COMPLIANCE WITH MEDS 14. BMI 32 15. GERD 16. DJD SPINE 17. CHRONIC BRONCHITIS 18. CATARACT EXTRACTION, RIGHT 19. ENDOSCOPY WITH ESOPHAGEAL BIOPSY AND [place] DILATATION (DR. MCCAULEY, 2017) 20. TAVR PROCEDURE (DR. MANN, 2019) 21. AAA REPAIR 22. ECHOCARDIOGRAM: (July,) ENLARGED LEFT ATRIAL CAVITY (5.6 CM); BORDERLINE LVH; HYPOKINETIC SEPTAL WALL; LVEF 60%; TAVR PROCEDURE- NORMAL VALVE STRUCTURE/NORMAL AORTIC ROOT LAST VITALS Temp Pulse Resp BP Pulse Ox 97.4 F L 60 16 133/82 98 05/12/20 05:51 05/12/20 05:51 05/12/20 05:51 05/12/20 05:51 05/12/20 05:51 DISCHARGE INSTRUCTIONS: 1. DISCHARGE: HOME WITH SPOUSE 2. AN APPOINTMENT IS SCHEDULED FOR OUTPATIENT PHYSICAL THERAPY EVALUATION AT [facility] ON May AT 10 AM. 3. AN APPOINTMENT IS SCHEDULED FOR May AT 10:[address] POTTS/TRAV GARNER APRN/ERICK CHOUDHURY APRN. 4. WOUND CARE INSTRUCTIONS: LEAVE WOUND ON RIGHT ARM OPEN TO AIR; ELEVATE THE RIGHT ARM ON A PILLOW; DO NOT APPLY OINTMENTS, DO NOT SCRUB THE WOUND; LEAVE SCAB INTACT DO NOT APPLY A DRESSING UNLESS YOU WILL BE ENGAGING IN AN ACTIVITY THAT COULD DISLODGE THE SCAB MEDICATIONS AT DISCHARGE: Carvedilol (Carvedilol 12.5 Mg Tablet) 12.5 mg PO BIDWM [facility] Last Admin: 05/12/20 08:56 Dose: 12.5 mg Documented by: Cilostazol (Cilostazol 100 Mg Tablet) 50 mg PO BID [facility] Last Admin: 05/12/20 08:56 Dose: 50 mg Documented by: Fenofibrate (Fenofibrate 160 Mg Tablet) 160 mg PO DAILY [facility] Last Admin: 05/12/20 08:56 Dose: 160 mg Documented by: Fish Oil ([place]-3/Dha/Epa/Fish Oil 1,000 Mg Capsule) 2,000 mg PO DAILY [facility] Last Admin: 05/12/20 08:56 Dose: 2,000 mg Documented by: Furosemide (Furosemide 40 Mg Tablet) 40 mg PO QDAC [facility] Last Admin: 05/12/20 05:52 Dose: 40 mg Documented by: Doxycycline Hyclate 100 mg PO Q12HR [facility] for 7 days (new) Stop: Last Admin: Documented by: Non-Formulary Medication (Vit C-Vit S-Hxnbxp-Vhrv-Lutein ) 1 cap PO BID [facility] Last Admin: 05/12/20 10:08 Dose: Not Given Documented by: Pravastatin Sodium (Pravastatin Sodium 40 Mg Tablet) 80 mg PO DAILY [facility] Last Admin: 05/12/20 08:56 Dose: 80 mg Documented by: Rivaroxaban (Rivaroxaban 10 Mg Tablet) 15 mg PO DAILY [facility] Last Admin: 05/12/20 08:55 Dose: 15 mg Documented by: Spironolactone (Spironolactone 25 Mg Tablet) 25 mg PO DAILY [facility] Last Admin: 05/12/20 08:56 Dose: 25 mg Documented by: Tamsulosin HCl (Tamsulosin Hcl 0.4 Mg Cap.Er.24h) 0.4 mg PO DAILY [facility] Last Admin: 05/12/20 08:56 Dose: 0.4 mg Documented by: NEW PRESCRIPTIONS: DOXYCYCLINE 100 MG PO BID FOR 7 DAYS #14 DISCONTINUED MEDICATIONS: ASPIRIN 81 MG DAILY DIET INSTRUCTIONS: REGULAR TOLERATED ACTIVITY: RESUME TOLERATED SMOKING: NOT APPLICABLE DISEASE SPECIFIC EDUCATION: NEW MEDICATION APPOINTMENTS WOUND CARE INSTRUCTIONS HOSPITAL COURSE: This is a white male who was a direct admit from our office. He had experienced a fall about 5 days prior and had a large abrasion on his right forearm near the elbow, approximately 3.5 inches. He had been seen in the ER twice and in our office twice to have dressings reapplied. On the second office visit it was noted that he had some surrounding erythema. He was noting increased pain and had continuous oozing of the area. He was admitted, initially placed on IV Clindamycin; however, wound culture from the ER was resistant to Clindamycin so he was then switched to Doxycycline 100 mg IV q.12hr. We had him keep his arm elevated on a pillow and keep it open to air. Over the course of the past 48 hours, there has been significant drying. He now has scant drainage. Erythema has resolved, swelling has improved, seems to be resolving well. He will go home, keep the area open to air unless he is in a situation where he might bump his elbow. He has been instructed to keep it easy. He can wrap it for short periods of time for protection otherwise he is to keep it clean and dry. We will followup with him in the office. He will go home on Doxycycline 100 mg p.o. b.i.d. for the next 7 days. Will followup with him next week. TIME SPENT: More than 60 minutes. FIOR
--- NOTE | 2020-05-17 14:16 | PN ---
DATE OF SERVICE: 05/12/2020 SUBJECTIVE: The patient was seen and examined with the Nurse Practitioner. The patient's condition is stable. He wants to go home for the past couple of days. Ulcer on the right elbow has scab which is healthy. He is stable for discharged. No evidence of any infection or cellulitis. The patient was explained about how to wrap it up and take care of it. He will be seen as an outpatient within 3-4 days. CONDITION: Stable. TIME SPENT: More than 30 minutes. Plan and coordination of the patient's care discussed in the presence of nurse. FIOR
--- NOTE | 2020-05-17 14:17 | PN ---
05/09/2020: Level 5 05/10/2020: Intermediate 05/11/2020: Intermediate 05/12/2020 : D as in discharge MTDD
--- NOTE | 2020-05-17 14:39 | PN ---
DATE OF SERVICE: 05/11/20 SUBJECTIVE: 85-year-old white male hospitalized with abrasion and large ulcer on the right elbow with cellulitis. The patient is feeling a lot better, wants to go home. REVIEW OF SYSTEMS: CONSTITUTIONAL: No night sweats. No fatigue, malaise, lethargy. No fever or chills. HEENT: Eyes: No visual changes. No eye pain. No eye discharge. ENT: No runny nose. No epistaxis. No sinus pain. No sore throat. No odynophagia. No congestion. RESPIRATORY: No cough, no congestion. No hemoptysis. No shortness of breath. CARDIOVASCULAR: No angina symptoms. No CHF symptoms. No atypical chest pain for CAD. No palpitations. No PND. No orthopnea. GASTROINTESTINAL: No abdominal pain. No nausea or vomiting. No diarrhea or constipation. No hematemesis. No hematochezia. GENITOURINARY: No urgency. No frequency. No dysuria. No hematuria. No obstructive symptoms. No discharge. No pain. No significant abnormal bleeding. MUSCULOSKELETAL: No musculoskeletal pain; no joint swelling. NEUROLOGICAL: No headache. No neck pain. No syncope. No seizures. No dizziness. PSYCHIATRIC: Not anxious. No depression. No suicidal thoughts. No homicidal thoughts. SKIN: No rash. No lesions. No wounds. ENDOCRINE: No unexplained weight loss. No weight gain. HEMATOLOGIC/LYMPHATIC: No anemia. No purpura. No petechiae. No prolonged or excessive bleeding. No palpable lymph nodes. PHYSICAL EXAMINATION: VITAL SIGNS: Temperature 97.5, pulse 62, respiratory rate 18, blood pressure 130/80, pulse ox 97% on 2L. HEENT: Head normocephalic, atraumatic. Eyes: Extraocular muscles are intact. Pupils are equal, round and reactive to light and accommodation. Ears: No lesions. Nose appeared normal. Throat: No exudate or erythema. NECK: Supple. No JVD, no carotid bruit. No lymphadenopathy or thyromegaly. LUNGS: Decreased breath sounds but clear to auscultation. Percussion note normal. Chest symmetrical. HEART: S1, S2, no S3. No murmurs. No cyanosis or clubbing. No ascites. Pulses: Dorsalis pedis and posterior tibial pulses +1 to +2 bilaterally. ABDOMEN: Soft. Nontender. Bowel sounds active. No CVA tenderness. No mass felt. EXTREMITIES: No edema. Full range of motion of all extremities, equal. NEUROLOGIC: No focal deficit. Cranial nerves II through XII are grossly intact. No headache, no double vision or headache. SKIN: Not dry. Intact. Turgor - normal. LYMPHATIC: No palpable lymph nodes/no lymphedema. MUSCULOSKELETAL: Normal joints with no swelling. Muscle tone is normal. LABS: Hemoglobin 11.4, hematocrit 34, WBC 5,300, normal differential. Creatinine 1.4, BUN 25, potassium 4.4. ASSESSMENT: 1. Ulcer on the right elbow, cellulitis, seems to have improved remarkably with Doxycycline. The ulcers with hypergranulation tissue has already flattened out with eschar formation, is quite healthy, no drainage at all. No sign of cellulitis or infection. 2. The patient is in atrial fibrillation. The monitor showed a pause of 2 seconds but no more than that. He is asymptomatic. His atrial fibrillation with ventricular response is nearly 50 to 80/min. The patient is on Xarelto. Usually he gets his Xarelto from the office. For several years both he and his are taking Xarelto and are both getting samples. LABS: Hemoglobin 11.4, hematocrit 34, WBC 5,300, normal differential. Creatinine 1.4, BUN 25. The patient complained of itching in both ankles and Lotrisone cream will be given to him. CONDITION: Stable. TIME SPENT: More than 30 minutes. Plan and coordination of the patient's care discussed in the presence of nurse. FIOR
--- NOTE | 2020-05-17 14:43 | PN ---
DATE OF SERVICE: 05/12/20 SUBJECTIVE: The patient was seen and examined with the nurse practitioner. The patient also has scab over healthy cellulitis. He will be discharged to be followed as an outpatient and also on an antibiotics. TIME SPENT: More than 30 minutes. Plan and coordination of the patient's care discussed in the presence of nurse. FIOR
--- NOTE | 2020-05-17 14:44 | PN ---
BILLING 05/09/20 ADMISSION DAY LEVEL 5 05/10/20 INTERMEDIATE 05/11/20 INTERMEDIATE 05/12/20 D IN DISCHARGE MTDD
== END 2020-05-12 13:00 | disposition home or self-care (01) | DRG 605 ==
LOC: MEDSURG A 12:17
PROVIDERS: ADMIT Internal Medicine; ATTEND Internal Medicine

== ENCOUNTER 2022-03-18 05:49 | Inpatient (IN) ==
[2022-03-18] MEDS ORDERED: SODIUM CHLORIDE 500 ML IV STA ×2 (06:20→07:42)
[2022-03-18 07:05] LABS: BASOPHILS # (AUTO) 0.1 K/uL (0-0.2); BASOPHILS % (AUTO) 0.7 % (0.0-3.0); EOSINOPHILS # (AUTO) 0.5 K/ul (0.0-0.7); EOSINOPHILS % (AUTO) 6.8 % (0.0-7.0); HEMATOCRIT 37.3 % (42.0-52.0); HEMOGLOBIN 12.3 g/dl (14.0-18.0); IMMATURE GRANULOCYTE % (AUTO) 0.3 % (0.0-5.0); LYMPHOCYTES # (AUTO) 1.2 K/uL (0.60-3.4); LYMPHOCYTES % (AUTO) 17.3 (10.0-50.0); MEAN CORPUSCULAR HEMOGLOBIN 29.9 pg (27.0-31.0); MEAN CORPUSCULAR VOLUME 90.5 fl (80.0-94.0); MONOCYTES % (AUTO) 14.4 (0-10); NEUTROPHILS # (AUTO) 4.3 K/ul (2.0-6.9); NEUTROPHILS % (AUTO) 60.5 % (42.2-75.2); PLATELET COUNT 197 10^3/uL (140-440); RDW COEFFICIENT OF VARIATION 15.8 % (11.6-14.8); RED BLOOD COUNT 4.12 10^6/ul (4.70-6.10); WHITE BLOOD COUNT 7.07 K/ul (4.2-10.2)
[2022-03-18 07:20] LABS: ALANINE AMINOTRANSFERASE 24.1 U/L (0-50); ALBUMIN 3.27 g/dL (3.5-5.0); ALKALINE PHOSPHATASE 71.8 U/L (56-119); ASPARTATE AMINO TRANSFERASE 63.4 U/L (17-59); BILIRUBIN,TOTAL 0.74 mg/dL (0.2-1.3); BLOOD UREA NITROGEN 25.3 mg/dL (9-20); CALCIUM 9.59 mg/dL (8.4-10.2); CHLORIDE 96.2 mmol/L (98-107); CREATININE 1.35 mg/dL (0.60-1.10); GLUCOSE 115.2 mg/dL (74-106); SODIUM 131.8 mmol/L (134.5-145); TOTAL PROTEIN 6.45 g/dL (6.3-8.2)
--- NOTE | 2022-03-18 07:20 | DI ---
EXAM: Chest one-view portable upright HISTORY: Chest pain COMPARISON: 03/08/2021 FINDINGS: The right lung is clear. Chronic changes noted in the pulmonary parenchyma. Left lateral pleural fluid collection is present. The cardiac silhouette is mildly enlarged. Wires are present from previous median sternotomy. 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 This may be pleural fluid or thickening.
--- NOTE | 2022-03-18 07:24 | CT ---
EXAM: CT head without contrast HISTORY: Weakness COMPARISON: 05/22/2021 TECHNIQUE: Serial axial images of the brain were obtained from the skull base to the vertex without IV contrast. FINDINGS: The ventricles, cisterns and sulci are stable. The garcia-white matter junction is well kings ntained. No acute intracranial hemorrhage. Parenchymal volume loss and chronic microangiopathy.No m idline shift or mass is identified. 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 The paranasal sinuses and mastoid air cells are clear. Postsurgica l changes to the calvarium IMPRESSION: No acute intracranial abnormality. All CT scans are performed using dose optimization techniques as appropriate to the performed exam an d include at least one of the following: Automated exposure control, adjustment of the mA and/or kV according t o size, and the use of iterative reconstruction technique.
[2022-03-18 07:33] LABS: TROPONIN I < 0.012 ng/ml (0.0000-0.120)
--- NOTE | 2022-03-18 07:54 | ED.PDOC ---
General <IRINA BALLARD MD - Last Filed: 03/27/22 02:21> ED Provider: Dr. IRINA BALLARD MD Chief Complaint: Weakness Stated Complaint: pt was unable to walk and sat down on the chair/floor. no acute injury. Time Seen by Provider: 03/18/22 05:51 Mode of Arrival: Ambulance Information Source: Patient, Family and EMT Exam Limitations: No limitations Primary Care Provider: KALYAN JACKSON MD Nursing and Triage Documentation Reviewed and Agree: Yes Does patient meet sepsis criteria?: No If yes, has appropriate treatment been initiated?: No System Inflammatory Response Syndrome: Not Applicable Sepsis Protocol: For patient's 13 years and over: Temp is 96.8 and below OR 101 and greater Pulse >90 BPM Resp >20/minute Acutely Altered Mental Status Are patient's symptoms suggestive of a new infection, such as: -Pneumonia -Skin, Soft Tissue -Endocarditis -UTI -Bone, Joint Infection -Implantable Device -Acute Abdominal Infection -Wound Infection -Meningitis -Blood Stream Catheter Infection -Unknown <JOANNE HUNTLEY MD - Last Filed: 03/18/22 10:48> Stated Complaint: pt was unable to walk and sat down on the chair/floor. no acute injury. no loc, increased weakness today, no fever Review of Systems <IRINA BALLARD MD - Last Filed: 03/27/22 02:21> Review Of Systems Constitutional: Reports No symptoms Eyes: Reports No symptoms Ears, Nose, Mouth, Throat: Reports No symptoms Respiratory: Reports No symptoms Cardiac: Reports No symptoms GI: Reports No symptoms : Reports No symptoms Musculoskeletal: Reports No symptoms Skin: Reports No symptoms Neurological: Reports No symptoms, Headache and Weakness Endocrine: Reports No symptoms Hematologic/Lymphatic: Reports No symptoms All Other Systems: Reviewed and Negative PFSH <IRINA BALLARD MD - Last Filed: 03/27/22 02:21> Medical History (Updated 03/19/22 @ 08:16 by AURY WOODARD) Afib Atrial flutter Bronchitis CAD (coronary artery disease) Cataract (lens) fragments in eye following cataract surgery, right eye CHF (congestive heart failure) Chronic kidney disease (CKD) Claudication Degenerative joint disease of spine Dizziness Dyslipidemia GERD (gastroesophageal reflux disease) Hypertension Ischemic cardiomyopathy PAD (peripheral artery disease) Family History Other No known health problems Social History (Updated 03/18/22 @ 14:59 by ROULA IRIZARRY RN) Marital status: W / Lives independently: No History of recent travel: No Surgical History (Updated 03/19/22 @ 08:16 by AURY WOODARD) History of cranial surgery 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) Physical Exam <IRINA BALLARD MD - Last Filed: 03/27/22 02:21> Physical Exam Appearance: Reports No pain distress and Well-nourished Ill-appearing: None Pain Distress: None Eyes: Reports MARIA ISABEL, EOMI and Conjunctiva clear ENT: Reports Ears normal, Nose normal and Oropharynx normal Neck: Supple Respiratory: Reports Airway patent, Breath sounds clear, Breath sounds equal and Respirations nonlabored Cardiovascular: Reports RRR, Pulses normal, No rub and No murmur GI/: Reports Soft, Nontender, No masses, Bowel sounds normal and No Organomegaly Musculoskeletal: Reports Normal strength, ROM intact, No edema and No calf tenderness Skin: Reports Warm, Dry and Normal color Neurological: Reports Sensation intact, Motor intact, Reflexes intact, Cranial nerves intact, Alert and Oriented Psychiatric: Reports Affect appropriate and Mood appropriate Interpretation <IRINA BALLARD MD - Last Filed: 03/27/22 02:21> Radiology Interpretation Radiology Interpretation By: Radiologist Exam Interpreted: Portable CXR and CT Scan Xray Comments: see the reports. EKG Interpretation Interpretation: 83/min, atrial fibrillation, LBBB, no acute ST or T wave changes. <JOANNE HUNTLEY MD - Last Filed: 03/18/22 10:48> Radiology Interpretation Xray Comments: +ipmn, no obstruction, sm left pleural effusion, no brain bleed EKG Interpretation Time of EKG #1: 10:44 Interpretation: atrial fib lbbb, similar 05/2021, no stemi Re-Evaluation <IRINA BALLARD MD - Last Filed: 03/27/22 02:21> Re-Evaluation Time of Re-Evaluation: 06:48 Status: Improved Vital Signs Stable: Yes Pain Level: 1 Appearance: NAD Lungs: Clear Skin: Warm and Dry Neuro: Alert and Oriented X3 CV: Other (irregularly irregular pulse.) Critical Care Note <IRINA BALLARD MD - Last Filed: 03/27/22 02:21> Critical Care Note Total Critical Care Time (mins): 0 Course <IRINA BALLARD MD - Last Filed: 03/27/22 02:21> Course Hematology/Chemistry: 03/22/22 04:45 03/22/22 04:45 Orders, Labs, Meds: Lab Review 03/18/22 03/18/22 03/18/22 06:55 06:55 06:55 WBC 7.07 RBC 4.12 L Hgb 12.3 L Hct 37.3 L MCV 90.5 MCH 29.9 MCHC 33.0 RDW Coeff of Yaritza 15.8 H Plt Count 197 Immature Gran % (Auto) 0.3 Neut % (Auto) 60.5 Lymph % (Auto) 17.3 [place] % (Auto) 14.4 H Eos % (Auto) 6.8 Baso % (Auto) 0.7 Neut # (Auto) 4.3 Lymph # (Auto) 1.2 [place] # (Auto) 1.0 Eos # (Auto) 0.5 Baso # (Auto) 0.1 Immature Gran # (Auto) 0.0 Sodium 131.8 L Potassium 4.30 Chloride 96.2 L Carbon Dioxide 28.0 Anion Gap 11.90 BUN 25.3 H Creatinine 1.35 H Estimated GFR (MDRD) 50.00 BUN/Creatinine Ratio 18.74 Glucose 115.2 H Lactic Acid 2.25 H Calcium 9.59 Total Bilirubin 0.74 AST 63.4 H ALT 24.1 Alkaline Phosphatase 71.8 Troponin I < 0.012 Total Protein 6.45 Albumin 3.27 L Globulin 3.18 Albumin/Globulin Ratio 1.02 Urine Color Urine Clarity Urine pH Ur Specific [place] Urine Protein Urine Glucose (UA) Urine Ketones Urine Blood Urine Nitrite Urine Bilirubin Urine Urobilinogen Ur Leukocyte Esterase SARS CoV-2 RNA Rapid KRISTIE 03/18/22 03/18/22 08:50 08:55 WBC RBC Hgb Hct MCV MCH MCHC RDW Coeff of [place]ar[place]za Plt Count Immature Gran % (Auto) Neut % (Auto) Lymph % (Auto) [place] % (Auto) Eos % (Auto) Baso % (Auto) Neut # (Auto) Lymph # (Auto) [place] # (Auto) Eos # (Auto) Baso # (Auto) Immature Gran # (Auto) Sodium Potassium Chloride Carbon Dioxide Anion Gap BUN Creatinine Estimated GFR (MDRD) BUN/Creatinine Ratio Glucose Lactic Acid Calcium Total Bilirubin AST ALT Alkaline Phosphatase Troponin I Total Protein Albumin Globulin Albumin/Globulin Ratio Urine Color Yellow Urine Clarity Clear Urine pH 7.0 Ur Specific [place] 1.015 Urine Protein Negative Urine Glucose (UA) Negative Urine Ketones Negative Urine Blood Negative Urine Nitrite Negative Urine Bilirubin Negative Urine Urobilinogen 0.2 Ur Leukocyte Esterase Negative SARS CoV-2 RNA Rapid KRISTIE Negative Orders Category Date Time Status ADMIT PATIENT INPATIENT .TO [facility] [place] (MONITORED BED) ADMISSION 03/18/22 10:49 Completed ABG DRAW REQUEST Stat CARDIO 03/18/22 10:42 Completed EKG-(ED ONLY) Stat CARDIO 03/18/22 06:20 Completed EKG-(IP & OP ONLY) DAILY CARDIO 03/20/22 06:00 Completed INTAKE & OUTPUT Q8HR CARE 03/18/22 10:49 Completed IP: INSERT SALINE LOCK ONCE CARE 03/18/22 10:49 Completed TELEMETRY MONITORING TELE CARE 03/18/22 10:49 Completed VITAL SIGNS Q4HR CARE 03/18/22 10:50 Completed VTE PREVENTION .AMY On AM/Off PM CARE 03/18/22 10:49 Completed [place] [ED CATHETER INSERTION AND CARE] .ONCE EMERGENCY 03/18/22 08:32 Completed Sal[place] [ED IV/MEDIPORT/POWERPORT] .ONCE EMERGENCY 03/18/22 06:20 Complet ed ABG COOX Stat LAB 03/18/22 11:05 Completed CBC W/ AUTO DIFF DAILY@0600 LAB 03/19/22 02:45 Completed CBC W/ AUTO DIFF DAILY@0600 LAB 03/20/22 04:41 Completed CBC W/ AUTO DIFF Stat LAB 03/18/22 06:55 Completed COMPREHENSIVE METABOLIC PANEL DAILY@0600 LAB 03/20/22 04:41 Completed COMPREHENSIVE METABOLIC PANEL Stat LAB 03/18/22 06:55 Completed LACTIC ACID Stat LAB 03/18/22 06:55 Completed SARS COV-2 RNA RAPID KRISTIE Stat LAB 03/18/22 08:55 Completed TROPONIN I Q8H LAB 03/18/22 16:58 Completed TROPONIN I Stat LAB 03/18/22 06:55 Completed URINALYSIS C & S IF INDICATED Stat LAB 03/18/22 08:50 Completed 0.9 % Sodium Chloride [Saline Flush] MEDS 03/18/22 06:20 Discontinued 1 syr IVF PRN PRN Acetaminophen [Tylenol] MEDS 03/18/22 10:49 Discontinued 650 mg PO Q4H PRN Carvedilol [Coreg] MEDS 03/18/22 11:00 Discontinued 12.5 mg PO BIDWM Fenofibrate [Triglide] MEDS 03/18/22 11:00 Discontinued 160 mg PO DAILY Lidocaine (Uro-Jet) [Uro-Jet] MEDS 03/18/22 08:32 Discontinued 10 ml MUCOUSMEMB ONCE STA Pravastatin Sodium [Pravachol] MEDS 03/18/22 11:00 Discontinued 80 mg PO DAILY Sodium Chloride 0.9% [Sodium Chloride] 1,000 ml MEDS 03/18/22 11:00 Discontinued IV 75 mls/hr Sodium Chloride 0.9% [Sodium Chloride] 500 ml MEDS 03/18/22 06:20 Discontinued IV BOLUS Sodium Chloride 0.9% [Sodium Chloride] 500 ml MEDS 03/18/22 07:42 Discontinued IV BOLUS Spironolactone [Aldactone] MEDS 03/18/22 11:00 Discontinued 25 mg PO DAILY RESUSCITATION STATUS Routine OTHERS 03/18/22 10:[address] ABDOMEN/PELVIS WO CONTRAST Stat RADS 03/18/22 07:[address] HEAD W/O CONTRAST Stat RADS 03/18/22 06:20 Completed CXR [CHEST, 1V AP ONLY] Stat RADS 03/18/22 06:20 Completed Medications Discontinued Medications Generic Name Dose Route Start Last Admin Trade Name Freq PRN Reason Stop Dose Admin Acetaminophen 650 mg 03/18/22 10:49 03/21/22 23:00 Acetaminophen 325 Mg Tablet PO 650 mg Q4H PRN Administration Mild Pain Albuterol/Ipratropium 3 ml 03/19/22 17:39 03/19/22 17:50 Ipratropium/Albuterol Vial.Neb NEB 3 ml RTQID PRN Administration Wheezing Atropine Sulfate 0.5 mg 03/18/22 18:31 Atropine Sulfate Inj 1 Mg/10 Ml Disp.Syrin IVP ONCE PRN Symptomatic Bradycardia Carvedilol 12.5 mg 03/18/22 11:00 03/22/22 09:55 Carvedilol 12.5 Mg Tablet PO 12.5 mg BIDWM LUKE Administration Dexamethasone Sodium Phosphate 4 mg 03/19/22 17:40 03/19/22 18:07 Dexamethasone Sod Phos 4 Mg/Ml Inj IM 03/19/22 17:41 4 mg ONCE STA Administration Erythromycin 1 applic 03/20/22 21:00 03/21/22 21:00 Erythromycin 3.5 Gm Opth Oint LEFTEYE 03/23/22 20:59 0.25 inch BEDTIME LUKE Administration Escitalopram Oxalate 10 mg 03/19/22 09:00 03/22/22 09:55 Escitalopram Oxalate 10 Mg Tablet PO 10 mg DAILY LUKE Administration Fenofibrate 160 mg 03/18/22 11:00 03/18/22 18:07 Fenofibrate 160 Mg Tablet PO Not Given DAILY LUKE Fenofibrate 54 mg 03/18/22 11:00 03/19/22 09:23 Fenofibrate 54 Mg Tablet PO 54 mg DAILY LUKE Administration Fenofibrate 160 mg 03/20/22 09:00 03/22/22 09:58 Fenofibrate 160 Mg Tablet PO 160 mg DAILY LUKE Administration Fish Oil 2,000 mg 03/18/22 11:00 03/22/22 09:55 [place]-3/Dha/Epa/Fish Oil 1,000 Mg Capsule PO 2,000 mg DAILY ULKE Administration Furosemide 20 mg 03/19/22 09:00 Furosemide 40 Mg Tablet PO DAILY LUKE Furosemide 20 mg 03/19/22 08:30 03/22/22 05:56 Furosemide 20 Mg Tablet PO 20 mg QDAC LUKE Administration Sodium Chloride 500 mls @ 500 mls/hr 03/18/22 06:20 03/18/22 07:15 Sodium Chloride IV 03/18/22 07:19 500 mls/hr BOLUS STA Administration Sodium Chloride 500 mls @ 500 mls/hr 03/18/22 07:42 03/18/22 08:53 Sodium Chloride IV 03/18/22 08:41 500 mls/hr BOLUS STA Administration Sodium Chloride 1,000 mls @ 75 mls/hr 03/18/22 11:00 03/19/22 02:23 Sodium Chloride IV 75 mls/hr .[id number] LUKE Administration Levothyroxine Sodium 50 mcg 03/19/22 06:30 03/22/22 05:56 Levothyroxine Sodium 50 Mcg Tablet PO 50 mcg QDAC LUKE Administration Lidocaine HCl 10 ml 03/18/22 08:32 03/18/22 08:51 Lidocaine 10 Ml Jel.Pf.Tania (Urojet) MUCOUSMEMB 03/18/22 08:33 10 ml ONCE STA Administration Mupirocin 1 applic 03/18/22 21:00 03/22/22 09:58 Mupirocin 22 Gm Oint TP 03/23/22 22:00 1 applic BID LUKE Administration Nitroglycerin 0.4 mg 03/18/22 18:31 Nitroglycerin 0.4 Mg Tab.Subl SL Q5MIN X 3 DOSES PRN Chest Pain Nystatin 1 applic 03/18/22 21:00 03/22/22 09:59 Nystatin 15 Gm Powder TP 1 applic BID LUKE Administration Pravastatin Sodium 80 mg 03/18/22 11:00 03/22/22 09:58 Pravastatin Sodium 40 Mg Tablet PO 80 mg DAILY LUKE Administration Sodium Chloride 1 syr 03/18/22 06:20 03/18/22 08:52 0.9% Sodium Chloride 10 Ml Disp.Syrin IVF 1 syr PRN PRN Administration To flush IV Sodium Chloride 1 syr 03/18/22 21:00 03/20/22 14:19 0.9% Sodium Chloride 10 Ml Disp.Syrin IVF Not Given Q8HR LUKE Spironolactone 25 mg 03/18/22 11:00 03/22/22 09:55 Spironolactone 25 Mg Tablet PO 25 mg DAILY LUKE Administration Tamsulosin HCl 0.4 mg 03/18/22 21:00 03/22/22 09:58 Tamsulosin Hcl 0.4 Mg Cap.Er.24h PO 0.4 mg BID LUKE Administration Vital Signs: Temp Pulse Resp BP Pulse Ox 03/18/22 05:50 98.1 F 61 18 108/60 95 <JOANNE HUNTLEY MD - Last Filed: 03/18/22 10:48> Course Orders, Labs, Meds: Lab Review 03/18/22 03/18/22 03/18/22 06:55 06:55 06:55 WBC 7.07 RBC 4.12 L Hgb 12.3 L Hct 37.3 L MCV 90.5 MCH 29.9 MCHC 33.0 RDW Coeff of Yaritza 15.8 H Plt Count 197 Immature Gran % (Auto) 0.3 Neut % (Auto) 60.5 Lymph % (Auto) 17.3 [place] % (Auto) 14.4 H Eos % (Auto) 6.8 Baso % (Auto) 0.7 Neut # (Auto) 4.3 Lymph # (Auto) 1.2 [place] # (Auto) 1.0 Eos # (Auto) 0.5 Baso # (Auto) 0.1 Immature Gran # (Auto) 0.0 Sodium 131.8 L Potassium 4.30 Chloride 96.2 L Carbon Dioxide 28.0 Anion Gap 11.90 BUN 25.3 H Creatinine 1.35 H Estimated GFR (MDRD) 50.00 BUN/Creatinine Ratio 18.74 Glucose 115.2 H Lactic Acid 2.25 H Calcium 9.59 Total Bilirubin 0.74 AST 63.4 H ALT 24.1 Alkaline Phosphatase 71.8 Troponin I < 0.012 Total Protein 6.45 Albumin 3.27 L Globulin 3.18 Albumin/Globulin Ratio 1.02 Urine Color Urine Clarity Urine pH Ur Specific [place] Urine Protein Urine Glucose (UA) Urine Ketones Urine Blood Urine Nitrite Urine Bilirubin Urine Urobilinogen Ur Leukocyte Esterase SARS CoV-2 RNA Rapid KRISTIE 03/18/22 03/18/22 08:50 08:55 WBC RBC Hgb Hct MCV MCH MCHC RDW Coeff of Yar[place]za Plt Count Immature Gran % (Auto) Neut % (Auto) Lymph % (Auto) [place] % (Auto) Eos % (Auto) Baso % (Auto) Neut # (Auto) Lymph # (Auto) [place] # (Auto) Eos # (Auto) Baso # (Auto) Immature Gran # (Auto) Sodium Potassium Chloride Carbon Dioxide Anion Gap BUN Creatinine Estimated GFR (MDRD) BUN/Creatinine Ratio Glucose Lactic Acid Calcium Total Bilirubin AST ALT Alkaline Phosphatase Troponin I Total Protein Albumin Globulin Albumin/Globulin Ratio Urine Color Yellow Urine Clarity Clear Urine pH 7.0 Ur Specific [place] 1.015 Urine Protein Negative Urine Glucose (UA) Negative Urine Ketones Negative Urine Blood Negative Urine Nitrite Negative Urine Bilirubin Negative Urine Urobilinogen 0.2 Ur Leukocyte Esterase Negative SARS CoV-2 RNA Rapid KRISTIE Negative Orders Category Date Time Status ADMIT PATIENT INPATIENT .TO [facility] [place] (MONITORED BED) ADMISSION 03/18/22 10:49 Completed ABG DRAW REQUEST Stat CARDIO 03/18/22 10:42 Completed EKG-(ED ONLY) Stat CARDIO 03/18/22 06:20 Completed EKG-(IP & OP ONLY) DAILY CARDIO 03/20/22 06:00 Completed INTAKE & OUTPUT Q8HR CARE 03/18/22 10:49 Completed IP: INSERT SALINE LOCK ONCE CARE 03/18/22 10:49 Completed TELEMETRY MONITORING TELE CARE 03/18/22 10:49 Completed VITAL SIGNS Q4HR CARE 03/18/22 10:50 Completed VTE PREVENTION .AMY On AM/Off PM CARE 03/18/22 10:49 Completed [place] [ED CATHETER INSERTION AND CARE] .ONCE EMERGENCY 03/18/22 08:32 Completed [place] [ED IV/MEDIPORT/POWERPORT] .ONCE EMERGENCY 03/18/22 06:20 Completed ABG COOX Stat LAB 03/18/22 11:05 Completed CBC W/ AUTO DIFF DAILY@0600 LAB 03/19/22 02:45 Completed CBC W/ AUTO DIFF DAILY@0600 LAB 03/20/22 04:41 Completed CBC W/ AUTO DIFF Stat LAB 03/18/22 06:55 Completed COMPREHENSIVE METABOLIC PANEL DAILY@0600 LAB 03/20/22 04:41 Completed COMPREHENSIVE METABOLIC PANEL Stat LAB 03/18/22 06:55 Completed LACTIC ACID Stat LAB 03/18/22 06:55 Completed SARS COV-2 RNA RAPID KRISTIE Stat LAB 03/18/22 08:55 Completed TROPONIN I Q8H LAB 03/18/22 16:58 Completed TROPONIN I Stat LAB 03/18/22 06:55 Completed URINALYSIS C & S IF INDICATED Stat LAB 03/18/22 08:50 Completed 0.9 % Sodium Chloride [Saline Flush] MEDS 03/18/22 06:20 Discontinued 1 syr IVF PRN PRN Acetaminophen [Tylenol] MEDS 03/18/22 10:49 Discontinued 650 mg PO Q4H PRN Carvedilol [Coreg] MEDS 03/18/22 11:00 Discontinued 12.5 mg PO BIDWM Fenofibrate [Triglide] MEDS 03/18/22 11:00 Discontinued 160 mg PO DAILY Lidocaine (Uro-Jet) [Uro-Jet] MEDS 03/18/22 08:32 Discontinued 10 ml MUCOUSMEMB ONCE STA Pravastatin Sodium [Pravachol] MEDS 03/18/22 11:00 Discontinued 80 mg PO DAILY Sodium Chloride 0.9% [Sodium Chloride] 1,000 ml MEDS 03/18/22 11:00 Discontinued IV 75 mls/hr Sodium Chloride 0.9% [Sodium Chloride] 500 ml MEDS 03/18/22 06:20 Discontinued IV BOLUS Sodium Chloride 0.9% [Sodium Chloride] 500 ml MEDS 03/18/22 07:42 Discontinued IV BOLUS Spironolactone [Aldactone] MEDS 03/18/22 11:00 Discontinued 25 mg PO DAILY RESUSCITATION STATUS Routine OTHERS 03/18/22 10:[address] ABDOMEN/PELVIS WO CONTRAST Stat RADS 03/18/22 07:[address] HEAD W/O CONTRAST Stat RADS 03/18/22 06:20 Completed CXR [CHEST, 1V AP ONLY] Stat RADS 03/18/22 06:20 Completed Medications Discontinued Medications Generic Name Dose Route Start Last Admin Trade Name Freq PRN Reason Stop Dose Admin Acetaminophen 650 mg 03/18/22 10:49 03/21/22 23:00 Acetaminophen 325 Mg Tablet PO 650 mg Q4H PRN Administration Mild Pain Albuterol/Ipratropium 3 ml 03/19/22 17:39 03/19/22 17:50 Ipratropium/Albuterol Vial.Neb NEB 3 ml RTQID PRN Administration Wheezing Atropine Sulfate 0.5 mg 03/18/22 18:31 Atropine Sulfate Inj 1 Mg/10 Ml Disp.Syrin IVP ONCE PRN Symptomatic Bradycardia Carvedilol 12.5 mg 03/18/22 11:00 03/22/22 09:55 Carvedilol 12.5 Mg Tablet PO 12.5 mg BIDWM LUKE Administration Dexamethasone Sodium Phosphate 4 mg 03/19/22 17:40 03/19/22 18:07 Dexamethasone Sod Phos 4 Mg/Ml Inj IM 03/19/22 17:41 4 mg ONCE STA Administration Erythromycin 1 applic 03/20/22 21:00 03/21/22 21:00 Erythromycin 3.5 Gm Opth Oint LEFTEYE 03/23/22 20:59 0.25 inch BEDTIME LUKE Administration Escitalopram Oxalate 10 mg 03/19/22 09:00 03/22/22 09:55 Escitalopram Oxalate 10 Mg Tablet PO 10 mg DAILY LUKE Administration Fenofibrate 160 mg 03/18/22 11:00 03/18/22 18:07 Fenofibrate 160 Mg Tablet PO Not Given DAILY LUKE Fenofibrate 54 mg 03/18/22 11:00 03/19/22 09:23 Fenofibrate 54 Mg Tablet PO 54 mg DAILY LUKE Administration Fenofibrate 160 mg 03/20/22 09:00 03/22/22 09:58 Fenofibrate 160 Mg Tablet PO 160 mg DAILY LUKE Administration Fish Oil 2,000 mg 03/18/22 11:00 03/22/22 09:55 [place]-3/Dha/Epa/Fish Oil 1,000 Mg Capsule PO 2,000 mg DAILY LUKE Administration Furosemide 20 mg 03/19/22 09:00 Furosemide 40 Mg Tablet PO DAILY LUKE Furosemide 20 mg 03/19/22 08:30 03/22/22 05:56 Furosemide 20 Mg Tablet PO 20 mg QDAC LUKE Administration Sodium Chloride 500 mls @ 500 mls/hr 03/18/22 06:20 03/18/22 07:15 Sodium Chloride IV 03/18/22 07:19 500 mls/hr BOLUS STA Administration Sodium Chloride 500 mls @ 500 mls/hr 03/18/22 07:42 03/18/22 08:53 Sodium Chloride IV 03/18/22 08:41 500 mls/hr BOLUS STA Administration Sodium Chloride 1,000 mls @ 75 mls/hr 03/18/22 11:00 03/19/22 02:23 Sodium Chloride IV 75 mls/hr .[id number] LUKE Administration Levothyroxine Sodium 50 mcg 03/19/22 06:30 03/22/22 05:56 Levothyroxine Sodium 50 Mcg Tablet PO 50 mcg QDAC LUKE Administration Lidocaine HCl 10 ml 03/18/22 08:32 03/18/22 08:51 Lidocaine 10 Ml Jel.Pf.Tania (Urojet) MUCOUSMEMB 03/18/22 08:33 10 ml ONCE STA Administration Mupirocin 1 applic 03/18/22 21:00 03/22/22 09:58 Mupirocin 22 Gm Oint TP 03/23/22 22:00 1 applic BID LUKE Administration Nitroglycerin 0.4 mg 03/18/22 18:31 Nitroglycerin 0.4 Mg Tab.Subl SL Q5MIN X 3 DOSES PRN Chest Pain Nystatin 1 applic 03/18/22 21:00 03/22/22 09:59 Nystatin 15 Gm Powder TP 1 applic BID LUKE Administration Pravastatin Sodium 80 mg 03/18/22 11:00 03/22/22 09:58 Pravastatin Sodium 40 Mg Tablet PO 80 mg DAILY LUKE Administration Sodium Chloride 1 syr 03/18/22 06:20 03/18/22 08:52 0.9% Sodium Chloride 10 Ml Disp.Syrin IVF 1 syr PRN PRN Administration To flush IV Sodium Chloride 1 syr 03/18/22 21:00 03/20/22 14:19 0.9% Sodium Chloride 10 Ml Disp.Syrin IVF Not Given Q8HR LUKE Spironolactone 25 mg 03/18/22 11:00 03/22/22 09:55 Spironolactone 25 Mg Tablet PO 25 mg DAILY LUKE Administration Tamsulosin HCl 0.4 mg 03/18/22 21:00 03/22/22 09:58 Tamsulosin Hcl 0.4 Mg Cap.Er.24h PO 0.4 mg BID LUKE Administration Vital Signs: Temp Pulse Resp BP Pulse Ox 03/18/22 05:50 98.1 F 61 18 108/60 95 Discharge Plan Discharge Patient Disposition: ADMITTED INPATIENT Discharge Problem: Weakness, Atrial fibrillation, Acute retention of urine, Dehydration Did you review [place] ESTATE MANAGER?: Not Applicable ED Provider: JOANNE HUNTLEY Condition: Stable <IRINA BALLARD MD - Last Filed: 03/27/22 02:21> Physician Progress Note: [] Stable, less painful patient. Pt was endorsed to Dr Huntley at 0700. <JOANNE HUNTLEY MD - Last Filed: 03/18/22 10:48> Physician Progress Note: [] Stable, less painful patient. Pt was endorsed to Dr Huntley at 0700. pt treatment and disposition d/w Dr Jackson, urine retention 750cc. differential includes dehydration, deconditioning
--- NOTE | 2022-03-18 08:23 | CT ---
EXAM: CT abdomen pelvis without contrast HISTORY: Pelvic injury COMPARISON: 09/27/2014 TECHNIQUE: Serial axial images of the abdomen pelvis were performed from the lung bases through the inferior pelvis without contrast. These were viewed in multiple planes. FINDINGS: Abdomen. Images of the lower thorax show no pulmonary infiltrate. There is a left lateral loculated pleural f luid collection. Subtle diaphragmatic calcifications noted on the left. Liver: There is uniform CT attenuation of the liver. There are no solid or cystic lesions. Gallbladder: Tiny calculi are present in the dependent portion of the gallbladder. Pancreas: 6 mm low density lesion junction of the body and tail of pancreas. Most likely this is an IPMN. Spleen: The spleen is unremarkable. Adrenal glands: Normal. Kidneys: The renal contours are visualized. There are no solid masses. There is no hydronephrosis. Vascular calcifications are present associated each kidney. Ureters: Ureters are unobstructed. Aorta: Vascular calcifications present in the abdominal aorta. A Y graft is present. Retroperitoneum: There is no retroperitoneal adenopathy. Bowel: There is no bowel wall thickening or evidence of obstruction. The appendix is identified and is unremarkable. Diverticulosis is noted in the descending and sigmoid colon. Skeletal system: There is no acute osseous abnormality. Degenerative spondylosis is noted in the irwin mbar spine. Bladder: Bladder is moderately distended. Bladder outlet obstruction cannot be excluded. IMPRESSION: Cholelithiasis 2. The bladder is moderately distended bladder outlet obstruction cannot be excluded. 3. Diverticulosis. 4. Aortobifemoral Y-graft 5. 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 All CT scans are performed using dose optimization techniques as appropriate to the performed exam an d include at least one of the following: Automated exposure control, adjustment of the mA and/or kV according t o size, and the use of iterative reconstruction technique.
[2022-03-18] MEDS ORDERED: URO-JET MUCOUSMEMB STA (08:32)
[2022-03-18 08:57] LABS: BILIRUBIN,URINE Negative (NEGATIVE); CLARITY,URINE Clear (CLEAR); COLOR,URINE Yellow (YELLOW); GLUCOSE, URINE (UA) Negative (NEGATIVE); KETONES,URINE Negative (NEGATIVE); LEUKOCYTE ESTERASE ,URINE Negative (NEGATIVE); NITRITE,URINE Negative (NEGATIVE); PROTEIN,URINE Negative (NEGATIVE); URINE, BLOOD Negative (NEGATIVE); UROBILINOGEN,URINE 0.2 (0.2)
[2022-03-18] MEDS ORDERED: TYLENOL PO PRN ×2 (10:49→18:31)
[2022-03-18] MEDS ORDERED: TRIGLIDE PO SCH (11:00)
[2022-03-18 11:13] LABS: ABG O2 HGB 93.8 % (95-100); ABG PH 7.42 (7.35-7.45); BEecf 2.7 (-2.0-3.0); COHb 2.4 (0.5-1.5); HCO3 27.2 (21-28); TCO2 28.5 (19-24); sO2 94.8 % (94-98); tHb 12.4 g/dl (11.7-17.4)
[2022-03-18 12:24] VITALS: BMI 29.6
[2022-03-18] MEDS: SODIUM CHLORIDE 1,000 ML IV SCH (13:30)
[2022-03-18] MEDS: ALDACTONE PO SCH (13:34)
[2022-03-18] MEDS: OMEGA-3 FISH OIL PO SCH (13:34)
[2022-03-18] MEDS: PRAVACHOL PO SCH (13:34)
[2022-03-18] MEDS: COREG PO SCH ×2 (13:34→18:06)
[2022-03-18] MEDS: TRIGLIDE PO SCH (13:35)
[2022-03-18] MEDS ORDERED: NITROSTAT SL PRN (18:31)
[2022-03-18] MEDS ORDERED: ATROPINE SULFATE PFS IVP PRN (18:31)
[2022-03-18] MEDS: FLOMAX PO SCH (21:40)
[2022-03-18] MEDS: NYSTOP POWDER TP SCH (21:41)
[2022-03-18] MEDS: BACTROBAN TP SCH (21:41)
[2022-03-19] MEDS: SODIUM CHLORIDE 1,000 ML IV SCH (02:23)
[2022-03-19 02:51] LABS: BASOPHILS % (AUTO) 0.4 % (0.0-3.0); EOSINOPHILS # (AUTO) 0.3 K/ul (0.0-0.7); EOSINOPHILS % (AUTO) 2.6 % (0.0-7.0); HEMATOCRIT 35.3 % (42.0-52.0); HEMOGLOBIN 11.7 g/dl (14.0-18.0); IMMATURE GRANULOCYTE % (AUTO) 0.3 % (0.0-5.0); LYMPHOCYTES % (AUTO) 9.4 (10.0-50.0); MEAN CORPUSCULAR HEMOGLOBIN 29.8 pg (27.0-31.0); MEAN CORPUSCULAR HGB CONC 33.1 (31.8-35.4); MEAN CORPUSCULAR VOLUME 89.8 fl (80.0-94.0); MONOCYTES # (AUTO) 1.4 K/uL (0.4-2.0); MONOCYTES % (AUTO) 13.6 (0-10); NEUTROPHILS # (AUTO) 7.6 K/ul (2.0-6.9); NEUTROPHILS % (AUTO) 73.7 % (42.2-75.2); PLATELET COUNT 163 10^3/uL (140-440); RDW COEFFICIENT OF VARIATION 15.6 % (11.6-14.8); RED BLOOD COUNT 3.93 10^6/ul (4.70-6.10); WHITE BLOOD COUNT 10.25 K/ul (4.2-10.2)
[2022-03-19 03:02] LABS: ALBUMIN 2.87 g/dL (3.5-5.0); BILIRUBIN,TOTAL 0.79 mg/dL (0.2-1.3); BLOOD UREA NITROGEN 17.2 mg/dL (9-20); CALCIUM 8.72 mg/dL (8.4-10.2); CARBON DIOXIDE 27.3 mmol/L (22-30.0); CHLORIDE 100.6 mmol/L (98-107); CREATINE KINASE 84.3 U/L (55-170); CREATININE 0.96 mg/dL (0.60-1.10); GLUCOSE 106.5 mg/dL (74-106); POTASSIUM 3.94 mmol/L (3.5-5.1); TOTAL PROTEIN 5.85 g/dL (6.3-8.2)
[2022-03-19 03:14] LABS: TROPONIN I 0.016 ng/ml (0.0000-0.120)
[2022-03-19] MEDS: SYNTHROID PO SCH (05:57)
[2022-03-19] MEDS ORDERED: SODIUM CHLORIDE 1,000 ML IV SCH (08:09)
[2022-03-19] MEDS ORDERED: NON-FORMULARY MEDICATION (Omega-3 Fatty Acids-Fish Oil [Fish Oil] 1 EACH capsule) PO SCH (09:00)
[2022-03-19] MEDS ORDERED: LASIX TAB PO SCH (09:00)
[2022-03-19] MEDS: COREG PO SCH ×2 (09:23→17:07)
[2022-03-19] MEDS: ALDACTONE PO SCH (09:23)
[2022-03-19] MEDS: TRIGLIDE PO SCH (09:23)
[2022-03-19] MEDS: PRAVACHOL PO SCH (09:23)
[2022-03-19] MEDS: OMEGA-3 FISH OIL PO SCH (09:23)
[2022-03-19] MEDS: LEXAPRO PO SCH (09:23)
[2022-03-19] MEDS: LASIX TAB PO SCH (09:23)
[2022-03-19] MEDS: FLOMAX PO SCH ×2 (09:23→20:06)
[2022-03-19] MEDS: NYSTOP POWDER TP SCH ×2 (09:24→20:08)
[2022-03-19] MEDS: BACTROBAN TP SCH ×2 (09:24→20:09)
--- NOTE | 2022-03-19 10:50 | PCM.PROG ---
Attending Provider: ATTENDING PROVIDER: Dr. KALYAN POTTS MD This patient is seen with Charlene Weeks, Nurse Practitioner. DATE OF SERVICE: 03/19/22 SUBJECTIVE: This 86 year old /WHITE M was hospitalized 03/18/22. Brought to the ER with weakness. Had to be lowered to the floor at home. Woke this morning with increased confusion. To be noted he has had declined in cognitive function since brain surgery last year. Has has some difficulty swallowing. He is in atrial fibrillation. Anticoagulants were not started due to history of bleed. REVIEW OF SYSTEMS: CONSTITUTIONAL: No night sweats. No fatigue, malaise, lethargy. No fever or chills. Weakness. HEENT: Eyes: No visual changes. No eye pain. No eye discharge. ENT: No runny nose. No epistaxis. No sinus pain. No odynophagia. No congestion. RESPIRATORY: No cough, no congestion. No hemoptysis. No shortness of breath. CARDIOVASCULAR: No angina symptoms. No CHF symptoms. No atypical chest pain for CAD. No palpitations. No orthopnea.. GASTROINTESTINAL: No abdominal pain. No nausea or vomiting. No diarrhea or const ipation. No hematemesis. No hematochezia. Dysphagia GENITOURINARY: No urgency. No frequency. No dysuria. No hematuria. No obstructive symptoms. No discharge. No pain. No significant abnormal bleeding. MUSCULOSKELETAL: No musculoskeletal pain; no joint swelling. NEUROLOGICAL: Awake, alert, confusion. No headache. No neck pain. No syncope. No seizures. No dizziness. PSYCHIATRIC: Not anxious. No depression. No suicidal thoughts. No homicidal thoughts. SKIN: No rash. No lesions. No wounds. ENDOCRINE: No unexplained weight loss. No weight gain. HEMATOLOGIC/LYMPHATIC: No anemia. No purpura. No petechiae. No prolonged or excessive bleeding. No palpable lymph nodes. PHYSICAL EXAMINATION: GENERAL: The patient is awake, alert and oriented to person only, lying in bed in no distress. VITAL SIGNS: Temperature 98.2 F, Pulse 80, Respiratory Rate 16, BP 126/68, Pulse Ox 94% HEENT: Head normocephalic, atraumatic. Eyes: Extraocular muscles are intact. Pupils are equal, round and reactive to light and accommodation. Ears: No lesions. Nose appeared normal. Throat: No exudate or erythema. NECK: Supple. No JVD, no carotid bruit. No lymphadenopathy or thyromegaly. LUNGS: Diminished breath sounds. Clear to auscultation. Percussion note normal. Chest symmetrical. HEART: S1, S2, no S3. Grade I murmur, irregular No cyanosis or clubbing. No ascites. Pulses: Dorsalis pedis and posterior tibial pulses +1 to +2 both sides. ABDOMEN: Soft. Non-tender. Bowel sounds active. No CVA tenderness. No mass felt. EXTREMITIES: No edema. Full range of motion of all extremities, equal. NEUROLOGIC: No focal deficit. Cranial nerves II through XII are grossly intact. No headache. No double vision. SKIN: Not dry. Intact. Turgor-normal. LYMPHATIC: No palpable lymph nodes/no lymphedema. MUSCULOSKELETAL: Normal joints with no swelling. Muscle tone is normal. LAB REVIEW: 03/19/22 02:45 03/19/22 02:45 03/19/22 02:45: WBC 10.25 H, RBC 3.93 L, Hgb 11.7 L, Hct 35.3 L, MCV 89.8, MCH 29.8, MCHC 33.1, RDW Coeff of Yaritza 15.6 H, Plt Count 163, Immature Gran % (Auto) 0.3, Neut % (Auto) 73.7, Lymph % (Auto) 9.4 L, [place] % (Auto) 13.6 H, Eos % (Auto) 2.6, Baso % (Auto) 0.4, Neut # (Auto) 7.6 H, Lymph # (Auto) 1.0, [place] # (Auto) 1.4, Eos # (Auto) 0.3, Baso # (Auto) 0.0, Immature Gran # (Auto) 0.0 03/19/22 02:45: Sodium 131.0 L, Potassium 3.94, Chloride 100.6, Carbon Dioxide 27.3, Anion Gap 7.04, BUN 17.2, Creatinine 0.96, Estimated GFR (MDRD) 75.00, BU N/Creatinine Ratio 17.91, Glucose 106.5 H, Calcium 8.72, Total Bilirubin 0.79, AST 165.0 H D, ALT 38.0, Alkaline Phosphatase 80.0, Total Creatine Kinase 84.3, Troponin I 0.016, Total Protein 5.85 L, Albumin 2.87 L, Globulin 2.98, Albumin/Globulin Ratio 0.96 03/18/22 16:58: Troponin I < 0.012 03/18/22 11:05: Puncture Site Rb, Base Excess 2.7, O2 Saturation 94.8, ABG pH 7.42, ABG pCO2 42.0, ABG pO2 73.0 L, ABG HCO3 27.2, ABG Total CO2 28.5 H, Elmer Test Pos, Hemoglobin 1.0, Oxyhemoglobin 93.8 L, Carboxyhemoglobin 2.4 H, Total Hemoglobin 12.4, FiO2 % 21.0 03/18/22 08:55: SARS CoV-2 RNA Rapid KRISTIE Negative 03/18/22 08:50: Urine Color Yellow, Urine Clarity Clear, Urine pH 7.0, Ur Specific [place] 1.015, Urine Protein Negative, Urine Glucose (UA) Negative, Urine Ketones Negative, Urine Blood Negative, Urine Nitrite Negative, Urine Bilirubin Negative, Urine Urobilinogen 0.2, Ur Leukocyte Esterase Negative ASSESSMENT: Please see below. 1. Generalized weakness 2. Atrial fibrillation 3. History of aortic valve replacement 4. Recurrent falls 5. 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 Discontinue IV fluids 2. T4 TSH 3. X-ray L spine 4. Bilateral Carotid scan Plan and coordination of the patient's care discussed in the presence of Professor Of Family Medicine and nurse. SCRIBED BY: Deny ANDINO scribed while in presence of service performed by Dr. Potts/Charlene Weeks APRN on 03/19/22 ([id number])
--- NOTE | 2022-03-19 11:14 | US ---
EXAMINATION: Carotid Doppler ultrasound HISTORY: Dizziness and recurrent falls. COMPARISON: Carotid ultrasound 03/17/2013. TECHNIQUE: Multiple sonographic images were obtained of the bilateral carotid vasculature using hanley scale and color/spectral Doppler analysis. FINDINGS: Plaque distribution: Heavy plaque centered around the carotid bifurcations bilaterally. Arterial velocities measured in centimeters per second. Right common carotid artery peak systolic velocity: 83.3 Right internal carotid artery peak systolic velocity: 79.0 Right internal carotid artery end diastolic velocity: 10.9 Right ICA/CCA ratio: 0.9 Right external carotid artery peak systolic velocity: 117.0 Left common carotid artery peak systolic velocity: 63.6 Left internal carotid artery peak systolic velocity: 137.9 Left internal carotid artery end diastolic velocity: 19.5 Left ICA/CCA ratio: 2.2 Left external carotid artery peak systolic velocity: 135.0 Vertebrals: - Right: Antegrade flow with normal waveform. - Left: Antegrade flow with normal waveform. Society of Radiologists in Ultrasound (SRU) consensus statement (Radiology 2003; 229:340-346. DOI 10 .[id number]) was used to estimate internal carotid artery stenosis. IMPRESSION: 1. Mild, less than 50% stenosis of the right internal carotid artery. 2. Moderate, 50-69% stenosis of the left internal carotid artery. 3. Right Vertebral Artery: Antegrade. 4. Left Vertebral Artery: Antegrade.
[2022-03-19 12:25] LABS: MOLECULAR FLU A NEGATIVE BY NAAT (NEGATIVE); MOLECULAR FLU B NEGATIVE BY NAAT (NEGATIVE)
--- NOTE | 2022-03-19 13:18 | RS.PTINEVL ---
Subjective - Patient information Date of Evaluation: 03/19/22 Date of Arrival on Unit: 03/18/22 Admitted From:: Home Diagnosis: weakness, inability to walk, dehydration Usual Living Arrangement: SON Home Environment: House, Ramp Medical History: Hypertension, COPD, Diabetes, CHF, Arthritis Medical History Comments:: CAD, AFib, DJD, CKD, GERD, ischemic cardiomyopathy, PAD Medications: see chart Subjective Information/ Patient Comments:: pt states that he would like to get up and get out of bed. - Level of function Prior to this admission, the patient could do the following:: Independent Selfcare, Independent ADL's, Independent Ambulation, Drive Current Level of Function: Partially Dependent Current Equipment Used at Home: ROLLATOR Interventions - Objective Patient Orientation: Person, Place Current Interventions: IV's, Telemetry Observation: pt with flexed posture, decreased step length Range of Motion - ROM Right Upper Extremity AROM: Moderate limitation (limited shld flex with pain) Left Upper Extremity AROM: Moderate limitation (limited shld flex with pain) Right Lower Extremity AROM: Slight limitation (limited hip and knee ext) Left Lower Extremity AROM: Slight limitation (limited hip and knee ext) Muscle Strength - Muscle Strength Right Upper Extremity Strength: Mild Weakness (shld flex 3-/5, elbow flex/ext 4- /5) Left Upper Extremity Strength: Mild Weakness (shld flex 3-/5, elbow flex/ext 4- /5) Right Lower Extremity Strength: Mild Weakness (hip flex 3/5, knee flex 4/5, ankle DF/PF 4/5) Left Lower Extremity Strength: Mild Weakness (hip flex 3/5, knee flex 4/5, ankle DF/PF 4/5) Sensation - Sensation Right Upper Extremity Sensation: Intact/Normal Left Upper Extremity Sensation: Intact/Normal Right Lower Extremity Sensation: Intact/Normal Left Lower Extremity Sensation: Intact/Normal Palpation Palpation Findings: Tenderness (tenderness to palpation B shlds), Muscle Guarding Balance - Sitting Balance and Reactions Static Sitting Balance: Fair Dynamic Sitting Balance: Poor Sitting Equilibrium Reactions: Delayed Left, Delayed Right Sitting Protective Reactions: Delayed Left, Delayed Right - Standing Balance and Reactions Static Standing Balance: Poor Dynamic Standing Balance: Poor Standing Equilibrium Reactions: Delayed Left, Delayed Right Standing Protective Reactions: Delayed Left, Delayed Right Functional Mobility - Bed Mobility Scooting: Mod Assist, 2 person assist Supine to Sit: Mod Assist, 1 person assist - Transfers Sit to Stand: Min Assist, 1 person assist, 2 person assist Stand to Sit: Min Assist, 1 person assist - Safety Awareness Safety Awareness: Fair CK INDEX SCORE: n/a Ambulation - Ambulation Assistive Device Used: Rollator Orthotic/Prosthetic Device: No Distance: 20ft Assistance needed with Ambulation: Min Assist, 1 person assist Gait Deviations: Wide Based gait, Forward posture, Short stride Factors Affecting Ambulation: Decreased Balance, Breathing/O2 Saturation, Pain, Weakness, Decreased Safety, Cognitive Status, Limited Endurance Treatment time - Time with patient Length of Evaluation: 22 Total treatment time: 35 Patient Education - Education Patient Education: Activity Modification, Education of Plan of Care Teaching Recipient: Patient Teaching Methods: Discussion, Demonstration Assessment - Assessment Problem List:: Decreased level of function, Requires training/education, Decreased safety/Risk of falls, Weakness, Pain limits previous level of function Rehab Potential: Good Further Therapy Indicated?: Yes Candidate for Swing Bed for Therapy Services?: Feel pt may not be a candidate for swing bed therapy due to previous level of function. Evaluation Complexity: HISTORY: Medium, EXAM OF BODY SYSTEMS: Medium, CLINICAL PRESENTATION: Medium, CLINICAL DECISION MAKING: Medium Patient's Goal(s): Get stronger. Short Term Goals GOAL #1: pt independent with rolling with bedrails. Goal to be met by: 03/21/22 GOAL #2: pt transfer sup to/from sit min x 1 Goal to be met by: 03/21/22 GOAL #3: Transfer sit to/from stand CGA x 1 Goal to be met by: 03/21/22 GOAL #4: pt amb 50ft with rollator min x 1 Goal to be met by: 03/21/22 GOAL #5: Improve BLE strength 4/5 Goal to be met by: 03/21/22 Custodial Goals GOAL #1: pt transfer sup to/from sit to/from stand CGA Goal to be met by: 03/23/22 GOAL #2: pt amb functional household distances w rwx CGA to SBA Goal to be met by: 03/23/22 GOAL #3: Dyn stand balance fair- Goal to be met by: 03/23/22 Plan Plan of Care: Therapeutic EX, Neuromuscular Re-Educ, Therapeutic Activity Other:: gait training Frequency of Treatment: 1-2 X day, as tolerated Duration of Treatment: 5 days Anticipated Discharge Destination: Home Treatment Diagnosis (ICD 10 Codes): impaired balance R 26.81. difficulty walking R 26.2. weakness M62.81 Has the Physician been added for Co-signature?: Yes
--- NOTE | 2022-03-19 14:09 | RS.OTINEVL ---
Subjective - Patient information Date of Evaluation: 03/19/22 Date of Arrival on Unit: 03/18/22 Admitted From:: Home Diagnosis: Weakness, dehydration, afib. PRECAUTIONS: Weakness, was unable to walk Usual Living Arrangement: SON Living Arrangement Comments: ADULT SONFRANCES LIVES WITH AND TAKES CARE OF HIM. Home Environment: House, Ramp Medical History: Hypertension, COPD, Diabetes, CHF, Arthritis Medical History Comments:: CAD, AFib, DJD, CKD, GERD, ischemic cardiomyopathy, PAD LATEX ALLERGY?: No Surgical History: CABG Surgical History Comments:: AAA repair, transcatheter aortic valve replacement Medications: see chart Subjective Information/ Patient Comments:: "I am 5 foot 4 inches." "No, I just sit in my chair and take naps." - Level of function Prior to this admission, the patient could do the following:: Independent Selfcare, Independent ADL's, Independent Ambulation, Drive Abilities prior to this admission: Pt reports he was independent with walking with his rollator in the home before this episode. Pt reports he has help from his son. Current Level of Function: Partially Dependent Current Equipment Used at Home: ROLLATOR Pain Assessment - Pain Pain Score: 0 Interventions - Objective Patient Orientation: Person Current Interventions: IV's, Telemetry, Hull Catheter Observation: Pt required moderate assistance of 2 to sit EOB. Pt has impaired AROM and use of BUE shoulders. Pt had a difficult time when he first stood to walk. Pt improved the longer he walked. Pt walked with min A of 1 with rollator. Interventions - ROM Right Upper Extremity AROM: Moderate limitation Left Upper Extremity AROM: Moderate limitation - Strength Right Upper Extremity Strength: Severe Weakness Left Upper Extremity Strength: Severe Weakness - Sensation Right Upper Extremity Sensation: Intact/Normal Left Upper Extremity Sensation: Intact/Normal Balance - Sitting Balance Static Sitting Balance: Fair Dynamic Sitting Balance: Fair - Standing Balance Static Standing Balance: Poor Dynamic Standing Balance: Poor ADL Skills - Self Feeding Self Feeding: CGA - Grooming Grooming: Min Assist, 1 person assist - Bathing Bathing UE: Mod Assist Bathing LE: Max Assist Bathing Set-up: Shower - Dressing Dressing UE: Mod Assist Dressing LE: Max Assist - Toilet Management Toilet Hygiene: Min Assist Toilet Clothing Management: Mod Assist Functional Mobility - Bed Mobility Scooting: Mod Assist, 1 person assist Supine to Sit: Mod Assist, 2 person assist - Transfers Sit to Stand: Min Assist, 2 person assist Stand to Sit: Min Assist, 1 person assist Stand Pivot Transfers: Min Assist - Ambulation Weight Bearing Status: FWB Assistive Device Used: Rollator Assistance needed with Ambulation: Min Assist, 1 person assist - Safety Awareness Safety Awareness: Fair CK INDEX SCORE: . Additional Treatment Performed - Time with patient Length of Evaluation: 20 Total treatment time: 25 Activities Do you enjoy playing games?: No Would you be interested in leaving your room for activities?: No Would you enjoy group activities?: No Do you have difficulty with your vision?: No Patient Interests:: Visiting/Socializing Comments:: Pt does not watch TV, does not read. Pt takes naps. Patient Education Patient Education: Home Safety, Education of Plan of Care Teaching Recipient: Patient Teaching Methods: Discussion Assessment Problem List:: Decreased level of function, Requires training/education, Decreased safety/Risk of falls, Weakness Rehab Potential: Good Evaluation Complexity: HISTORY: Medium, EXAM OF BODY SYSTEMS: Medium, CLINICAL DECISION MAKING: Medium Patient's Goal(s): To get better and return to his home. Short Term Goals - Goals GOAL 1: Pt to increase dyn. std. bal. to Fair. Goal to be met by: 03/22/22 GOAL 2: Pt to increase to CGA with sink level ADLS. Goal to be met by: 03/22/22 GOAL 3: Pt to increase UB dressing to Min A. Goal to be met by: 03/22/22 GOAL 4: Pt to increase LB dressing to Moderate assistance. Goal to be met by: 03/22/22 [employer] Safety Engineer Goals GOAL 1: Pt to increase dyn. std. bal. to Fair+ Goal to be met by: 03/26/22 GOAL 2: Pt to be SUP with sink level ADLS. Goal to be met by: 03/26/22 GOAL 3: Pt to increase UB dressing to CGA. Goal to be met by: 03/26/22 Plan Plan of Care: Therapeutic EX, Therapeutic Activity, Self-Care/Home Management Frequency of Treatment: 1-2 X day, as tolerated Duration of Treatment: 1 Week Anticipated Discharge Destination: Home Treatment Diagnosis (ICD 10 Codes): Weakness M62.81, Z74.1 Need for assistance with personal care. Has the Physician been added for Co-signature?: Yes
--- NOTE | 2022-03-19 15:34 | DI ---
EXAM: Three views of the lumbar spine HISTORY: Back pain. COMPARISON: CT abdomen pelvis 03/18/2022 FINDINGS: There is degenerative disease of the lumbar spine with moderate to severe facet arthropathy with anterior disc osteophytes. There is no lytic or blastic lesion. Lumbosacral junction is narro wed. The soft tissues are unremarkable. 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
[2022-03-19] MEDS ORDERED: DUONEB NEB PRN (17:39)
[2022-03-19] MEDS ORDERED: DECADRON IM STA (17:40)
[2022-03-20 05:14] LABS: HEMATOCRIT 34.4 % (42.0-52.0); HEMOGLOBIN 11.5 g/dl (14.0-18.0); MEAN CORPUSCULAR HEMOGLOBIN 29.6 pg (27.0-31.0); MEAN CORPUSCULAR HGB CONC 33.4 (31.8-35.4); MEAN CORPUSCULAR VOLUME 88.4 fl (80.0-94.0); PLATELET COUNT 184 10^3/uL (140-440); RDW COEFFICIENT OF VARIATION 15.9 % (11.6-14.8); RED BLOOD COUNT 3.89 10^6/ul (4.70-6.10); WHITE BLOOD COUNT 9.21 K/ul (4.2-10.2)
[2022-03-20 05:28] LABS: ALANINE AMINOTRANSFERASE 37.6 U/L (0-50); ALBUMIN 2.97 g/dL (3.5-5.0); ASPARTATE AMINO TRANSFERASE 112.1 U/L (17-59); BILIRUBIN,TOTAL 0.85 mg/dL (0.2-1.3); CALCIUM 8.55 mg/dL (8.4-10.2); CARBON DIOXIDE 25.8 mmol/L (22-30.0); CHLORIDE 100.4 mmol/L (98-107); CREATININE 0.74 mg/dL (0.60-1.10); GLUCOSE 134.5 mg/dL (74-106); POTASSIUM 4.16 mmol/L (3.5-5.1); SODIUM 131.9 mmol/L (134.5-145); TOTAL PROTEIN 6.2 g/dL (6.3-8.2)
[2022-03-20 05:30] LABS: ANISOCYTOSIS NOT PRESENT (NOT PRESENT)
[2022-03-20] MEDS: SYNTHROID PO SCH (05:51)
[2022-03-20] MEDS: LASIX TAB PO SCH (05:51)
[2022-03-20] MEDS: OMEGA-3 FISH OIL PO SCH (09:28)
[2022-03-20] MEDS: LEXAPRO PO SCH (09:28)
[2022-03-20] MEDS: PRAVACHOL PO SCH (09:28)
[2022-03-20] MEDS: TRIGLIDE PO SCH (09:28)
[2022-03-20] MEDS: FLOMAX PO SCH ×2 (09:28→20:28)
[2022-03-20] MEDS: COREG PO SCH ×2 (09:28→17:20)
[2022-03-20] MEDS: BACTROBAN TP SCH ×2 (09:28→20:29)
[2022-03-20] MEDS: ALDACTONE PO SCH (09:28)
[2022-03-20] MEDS: NYSTOP POWDER TP SCH ×2 (09:29→20:29)
--- NOTE | 2022-03-20 09:55 | PCM.PROG ---
Attending Provider: ATTENDING PROVIDER: Dr. KALYAN POTTS MD This patient is seen with Charlene Weeks, Nurse Practitioner. DATE OF SERVICE: 03/20/22 SUBJECTIVE: This 86 year old /WHITE M was hospitalized 03/18/22. The patient is resting comfortably in bed. The patient worked with therapy yesterday. Will discuss with family today possible jail placement or see if they can care for him at home. I do not feel that he can be by myself. He had some wheezing last night and treated with Decadron. Labs are stable. X-ray of back showed arthritis. Carotid scan showed moderate stenosis on the left. REVIEW OF SYSTEMS: CONSTITUTIONAL: Confusion and weakness. No night sweats. No fatigue, malaise, lethargy. No fever or chills. HEENT: Eyes: No visual changes. No eye pain. No eye discharge. ENT: No runny nose. No epistaxis. No sinus pain. No odynophagia. No congestion. RESPIRATORY: No cough, no congestion. No hemoptysis. No shortness of breath. CARDIOVASCULAR: No angina symptoms. No CHF symptoms. No atypical chest pain for CAD. No palpitations. No orthopnea.. GASTROINTESTINAL: No abdominal pain. No nausea or vomiting. No diarrhea or constipation. No hematemesis. No hematochezia. GENITOURINARY: No urgency. No frequency. No dysuria. No hematuria. No obstruc tive symptoms. No discharge. No pain. No significant abnormal bleeding. MUSCULOSKELETAL: No musculoskeletal pain; no joint swelling. NEUROLOGICAL: Awake, alert, oriented to person and place only. No headache. No neck pain. No syncope. No seizures. No dizziness. PSYCHIATRIC: Not anxious. No depression. No suicidal thoughts. No homicidal thoughts. SKIN: No rash. No lesions. No wounds. ENDOCRINE: No unexplained weight loss. No weight gain. HEMATOLOGIC/LYMPHATIC: No anemia. No purpura. No petechiae. No prolonged or excessive bleeding. No palpable lymph nodes. PHYSICAL EXAMINATION: GENERAL: The patient is awake, alert and oriented to person and place only, lying/sitting in bed in no distress. VITAL SIGNS: Temperature 98.2 F, Pulse 76, Respiratory Rate 20, BP 120/88, Pulse Ox 94% HEENT: Head normocephalic, atraumatic. Eyes: Extraocular muscles are intact. Pupils are equal, round and reactive to light and accommodation. Ears: No lesions. Nose appeared normal. Throat: No exudate or erythema. NECK: Supple. No JVD, no carotid bruit. No lymphadenopathy or thyromegaly. LUNGS: Diminished breath sounds. Clear to auscultation. Percussion note normal. Chest symmetrical. HEART: Irregular heart rate, Grade 1 murmur. S1, S2, no S3. No cyanosis or clubbing. No ascites. Pulses: Dorsalis pedis and posterior tibial pulses +1 to +2 both sides. ABDOMEN: Soft. Non-tender. Bowel sounds active. No CVA tenderness. No mass felt. EXTREMITIES: No edema. Full range of motion of all extremities, equal. NEUROLOGIC: No focal deficit. Cranial nerves II through XII are grossly intact. No headache. No double vision. SKIN: Not dry. Intact. Turgor-normal. LYMPHATIC: No palpable lymph nodes/no lymphedema. MUSCULOSKELETAL: Normal joints with no swelling. Muscle tone is normal. LAB REVIEW: 03/20/22 04:41 03/20/22 04:41 03/20/22 04:41: Sodium 131.9 L, Potassium 4.16, Chloride 100.4, Carbon Dioxide 25.8, Anion Gap 9.86, BUN 19.0, Creatinine 0.74, Estimated GFR (MDRD) 101.00, BUN/Creatinine Ratio 25.67, Glucose 134.5 H, Calcium 8.55, Total Bilirubin 0.85, AST 112.1 H D, ALT 37.6, Alkaline Phosphatase 79.0, Total Protein 6.20 L, Albumin 2.97 L, Globulin 3.23, Albumin/Globulin Ratio 0.91 03/20/22 04:41: WBC 9.21, RBC 3.89 L, Hgb 11.5 L, Hct 34.4 L, MCV 88.4, MCH 29.6, MCHC 33.4, RDW Coeff of [place]aritza 15.9 H, Plt Count 184, Neutrophils % (Manual) 89.0 H, Lymphocytes % (Manual) 7.0 L, Monocytes % (Manual) 4.0, Anisocytosis Not present 03/19/22 11:32: Influ A Molecular Assay Negative by naat, Influ B Molecular Assay Negative by naat 03/19/22 02:45: TSH 1.690 03/19/22 02:45: Free T4 2.19 ASSESSMENT: Please see below. 1. Generalized weakness 2. Atrial fibrillation 3. History of aortic valve replacement 4. Recurrent falls 5. 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 Will discuss with family future care planning for patient. Plan and coordination of the patient's care discussed in the presence of Marketing Communications Leader and nurse. CONDITION: stable SCRIBED BY: BECKY BUTLER Topline Beading Machine Tender scribed while in presence of service performed by Dr. Potts/Charlene Weeks APRN on 03/20/22 ([id number])
[2022-03-20] MEDS: ERYTHROMYCIN LEFTEYE SCH (20:31)
[2022-03-21 05:15] LABS: BASOPHILS % (AUTO) 0.2 % (0.0-3.0); EOSINOPHILS # (AUTO) 0.3 K/ul (0.0-0.7); HEMOGLOBIN 11.1 g/dl (14.0-18.0); IMMATURE GRANULOCYTE % (AUTO) 0.4 % (0.0-5.0); LYMPHOCYTES # (AUTO) 1.2 K/uL (0.60-3.4); LYMPHOCYTES % (AUTO) 14.4 (10.0-50.0); MEAN CORPUSCULAR HEMOGLOBIN 29.7 pg (27.0-31.0); MEAN CORPUSCULAR HGB CONC 33.6 (31.8-35.4); MEAN CORPUSCULAR VOLUME 88.2 fl (80.0-94.0); MONOCYTES # (AUTO) 0.9 K/uL (0.4-2.0); MONOCYTES % (AUTO) 10.3 (0-10); NEUTROPHILS % (AUTO) 71.7 % (42.2-75.2); PLATELET COUNT 186 10^3/uL (140-440); RED BLOOD COUNT 3.74 10^6/ul (4.70-6.10); WHITE BLOOD COUNT 8.38 K/ul (4.2-10.2)
[2022-03-21 05:27] LABS: ALANINE AMINOTRANSFERASE 34.1 U/L (0-50); ALBUMIN 2.72 g/dL (3.5-5.0); ALKALINE PHOSPHATASE 80.4 U/L (56-119); ASPARTATE AMINO TRANSFERASE 85.5 U/L (17-59); BILIRUBIN,TOTAL 0.68 mg/dL (0.2-1.3); BLOOD UREA NITROGEN 20.7 mg/dL (9-20); CALCIUM 8.33 mg/dL (8.4-10.2); CARBON DIOXIDE 30.5 mmol/L (22-30.0); CHLORIDE 100.7 mmol/L (98-107); CREATININE 0.74 mg/dL (0.60-1.10); GLUCOSE 88.5 mg/dL (74-106); SODIUM 132.9 mmol/L (134.5-145); TOTAL PROTEIN 5.75 g/dL (6.3-8.2)
[2022-03-21] MEDS: LASIX TAB PO SCH (05:53)
[2022-03-21] MEDS: SYNTHROID PO SCH (05:53)
[2022-03-21] MEDS: FLOMAX PO SCH ×2 (08:14→20:51)
[2022-03-21] MEDS: TRIGLIDE PO SCH (08:14)
[2022-03-21] MEDS: COREG PO SCH ×2 (08:15→16:56)
[2022-03-21] MEDS: PRAVACHOL PO SCH (08:15)
[2022-03-21] MEDS: ALDACTONE PO SCH (08:16)
[2022-03-21] MEDS: LEXAPRO PO SCH (08:16)
[2022-03-21] MEDS: OMEGA-3 FISH OIL PO SCH (08:16)
[2022-03-21] MEDS: NYSTOP POWDER TP SCH ×2 (08:17→20:53)
[2022-03-21] MEDS: BACTROBAN TP SCH ×2 (08:19→20:54)
--- NOTE | 2022-03-21 11:34 | PN ---
DATE OF SERVICE: 03/19/22 SUBJECTIVE: The patient was seen and examined with the Nurse Practitioner. The patient's condition is more or less stable but he is confused at time. Cardiovascular status is stable. Neurological status is stable except for dementia which seems to be worsening. The patient's condition definitely has deteriorated mentally after his subdural hematoma evacuation and few a weeks ago the and that has made the situation worse. The patient needs to go to the prison. Son was made aware of that. I don't think that the son is really able to take care of him at home. The patient wants to go home. TIME SPENT: More than 30 minutes. Plan and coordination of the patient's care discussed in the presence of nurse. FIOR
[2022-03-21] MEDS: ERYTHROMYCIN LEFTEYE SCH (21:00)
[2022-03-22 04:59] VITALS: BP 123/70; TEMP 97.6
[2022-03-22 05:24] LABS: BASOPHILS # (AUTO) 0.1 K/uL (0-0.2); BASOPHILS % (AUTO) 0.7 % (0.0-3.0); EOSINOPHILS # (AUTO) 0.6 K/ul (0.0-0.7); EOSINOPHILS % (AUTO) 7.9 % (0.0-7.0); HEMATOCRIT 31.8 % (42.0-52.0); HEMOGLOBIN 10.7 g/dl (14.0-18.0); IMMATURE GRANULOCYTE % (AUTO) 0.3 % (0.0-5.0); LYMPHOCYTES # (AUTO) 1.4 K/uL (0.60-3.4); LYMPHOCYTES % (AUTO) 18.7 (10.0-50.0); MEAN CORPUSCULAR HEMOGLOBIN 29.8 pg (27.0-31.0); MEAN CORPUSCULAR HGB CONC 33.6 (31.8-35.4); MEAN CORPUSCULAR VOLUME 88.6 fl (80.0-94.0); MONOCYTES # (AUTO) 0.9 K/uL (0.4-2.0); MONOCYTES % (AUTO) 11.8 (0-10); NEUTROPHILS # (AUTO) 4.5 K/ul (2.0-6.9); NEUTROPHILS % (AUTO) 60.6 % (42.2-75.2); PLATELET COUNT 196 10^3/uL (140-440); RED BLOOD COUNT 3.59 10^6/ul (4.70-6.10); WHITE BLOOD COUNT 7.37 K/ul (4.2-10.2)
[2022-03-22 05:38] LABS: ALANINE AMINOTRANSFERASE 30.3 U/L (0-50); ALBUMIN 2.63 g/dL (3.5-5.0); ALKALINE PHOSPHATASE 73.8 U/L (56-119); ASPARTATE AMINO TRANSFERASE 63.7 U/L (17-59); BILIRUBIN,TOTAL 0.78 mg/dL (0.2-1.3); BLOOD UREA NITROGEN 27.9 mg/dL (9-20); CALCIUM 8.33 mg/dL (8.4-10.2); CARBON DIOXIDE 29.1 mmol/L (22-30.0); CHLORIDE 100.1 mmol/L (98-107); CREATININE 0.93 mg/dL (0.60-1.10); GLUCOSE 87.9 mg/dL (74-106); POTASSIUM 4.03 mmol/L (3.5-5.1); SODIUM 133.1 mmol/L (134.5-145); TOTAL PROTEIN 5.59 g/dL (6.3-8.2)
[2022-03-22] MEDS: LASIX TAB PO SCH (05:56)
[2022-03-22] MEDS: SYNTHROID PO SCH (05:56)
[2022-03-22] MEDS: COREG PO SCH (09:55)
[2022-03-22] MEDS: OMEGA-3 FISH OIL PO SCH (09:55)
[2022-03-22] MEDS: ALDACTONE PO SCH (09:55)
[2022-03-22] MEDS: LEXAPRO PO SCH (09:55)
[2022-03-22] MEDS: FLOMAX PO SCH (09:58)
[2022-03-22] MEDS: PRAVACHOL PO SCH (09:58)
[2022-03-22] MEDS: BACTROBAN TP SCH (09:58)
[2022-03-22] MEDS: TRIGLIDE PO SCH (09:58)
[2022-03-22] MEDS: NYSTOP POWDER TP SCH (09:59)
--- NOTE | 2022-03-22 11:36 | DS ---
DATE OF SERVICE: 03/22/22 FINAL DIAGNOSIS: 1. Generalized weakness 2. Dementia 3. History of subdural hematoma evacuation 4. Atrial fibrillation DISCHARGE INSTRUCTIONS: Discharge to [facility]. Dr. Jackson/Charlene Weeks NP/Santiago Lauren NP to follow. Fall precautions. CBC and CMP in one week. Code Status is DNR. See medication list for medications. Erythromycin to be stopped on 03/29/22. Nystop to be stopped in one month. Bactroban to be stopped on 03/29/22. MEDICATIONS AT DISCHARGE: Fenofibrate 160mg PO daily Pravachol 80mg PO daily [place] 3 two cap PO daily Coreg 12.5mg PO BID PreserVision one cap PO BID Lasix 20mg PO daily Lexapro 10mg PO daily Toviaz 8mg PO daily Aldactone 12.5mg PO daily Flomax 0.4mg PO BID NEW PRESCRIPTIONS: Mupirocin one application topical BID Nystop one application topical BID Erythromycin 0.25ing left eye bedtime DISCONTINUED MEDICATIONS: Erythromycin DIET INSTRUCTIONS: As tolerated. Plenty of fluids. ACTIVITY: May participate in activities. Use assistive devices to prevent falls. HOSPITAL COURSE: 86 year old white male who was to the ER with weakness and confusion was found to be dehydration with increase renal function and unable to walk. All x-rays were normal. U/A and chest x-ray was normal. With IV fluids the patient has improved. He agreed to go to [facility] for rehab. I feel he would greatly benefit from PT/OT. The patient's confusion has increased since having brain surgery last year with Dr. Coleman. He is back to baseline. He will be discharge in stable condition and we will followup with him at the jail. TIME SPENT: More than 60 minutes. FIOR
--- NOTE | 2022-03-22 11:36 | PCM.PROG ---
Attending Provider: ATTENDING PROVIDER: Dr. KALYAN POTTS MD This patient is seen with Charlene Weeks, Nurse Practitioner. DATE OF SERVICE: 03/22/22 SUBJECTIVE: This 86 year old /WHITE M was hospitalized 03/18/22. The patient is eating well this morning. The patient is ready for discharge, he is going to [facility] for rehabilitation. REVIEW OF SYSTEMS: CONSTITUTIONAL: No night sweats. No fatigue, malaise, lethargy. No fever or chills. Weakness. HEENT: Eyes: No visual changes. No eye pain. No eye discharge. ENT: No runny nose. No epistaxis. No sinus pain. No odynophagia. No congestion. RESPIRATORY: No cough, no congestion. No hemoptysis. No shortness of breath. CARDIOVASCULAR: No angina symptoms. No CHF symptoms. No atypical chest pain for CAD. No palpitations. No orthopnea.. GASTROINTESTINAL: No abdominal pain. No nausea or vomiting. No diarrhea or constipation. No hematemesis. No hematochezia. GENITOURINARY: No urgency. No frequency. No dysuria. No hematuria. No obstructive symptoms. No discharge. No pain. No significant abnormal bleeding. MUSCULOSKELETAL: No musculoskeletal pain; no joint swelling. NEUROLOGICAL: Awake, alert, intermittent confusion. No headache. No neck pain. No syncope. No seizures. No dizziness. PSYCHIATRIC: Not anxious. No depression. No suicidal thoughts. No homicidal thoughts. SKIN: No rash. No lesions. No wounds. ENDOCRINE: No unexplained weight loss. No weight gain. HEMATOLOGIC/LYMPHATIC: No anemia. No purpura. No petechiae. No prolonged or excessive bleeding. No palpable lymph nodes. PHYSICAL EXAMINATION: GENERAL: The patient is awake, alert and oriented, sitting in bed in no distress. VITAL SIGNS: Temperature 97.6 F, Pulse 63, Respiratory Rate 18, BP 123/70, Pulse Ox 93% HEENT: Head normocephalic, atraumatic. Eyes: Extraocular muscles are intact. Pupils are equal, round and reactive to light and accommodation. Ears: No lesions. Nose appeared normal. Throat: No exudate or erythema. NECK: Supple. No JVD, no carotid bruit. No lymphadenopathy or thyromegaly. LUNGS: Diminished breath sounds. Clear to auscultation. Percussion note normal. Chest symmetrical. HEART: S1, S2, no S3. Grade I/ systolic murmurs. Irregular heart rate. No c yanosis or clubbing. No ascites. Pulses: Dorsalis pedis and posterior tibial pulses +1 to +2 both sides. ABDOMEN: Soft. Non-tender. Bowel sounds active. No CVA tenderness. No mass felt. EXTREMITIES: No edema. Full range of motion of all extremities, equal. NEUROLOGIC: No focal deficit. Cranial nerves II through XII are grossly intact. No headache. No double vision. SKIN: Not dry. Intact. Turgor-normal. LYMPHATIC: No palpable lymph nodes/no lymphedema. MUSCULOSKELETAL: Normal joints with no swelling. Muscle tone is normal. LAB REVIEW: 03/22/22 04:45 03/22/22 04:45 03/22/22 04:45: Sodium 133.1 L, Potassium 4.03, Chloride 100.1, Carbon Dioxide 29.1, Anion Gap 7.93, BUN 27.9 H, Creatinine 0.93, Estimated GFR (MDRD) 77.00, BUN/Creatinine Ratio 30.00, Glucose 87.9, Calcium 8.33 L, Total Bilirubin 0.78, AST 63.7 H, ALT 30.3, Alkaline Phosphatase 73.8, Total Protein 5.59 L, Albumin 2.63 L, Globulin 2.96, Albumin/Globulin Ratio 0.88 03/22/22 04:45: WBC 7.37, RBC 3.59 L, Hgb 10.7 L, Hct 31.8 L, MCV 88.6, MCH 29.8, MCHC 33.6, RDW Coeff of Yaritza 16.0 H, Plt Count 196, Immature Gran % (Auto) 0.3, Neut % (Auto) 60.6, Lymph % (Auto) 18.7, [place] % (Auto) 11.8 H, Eos % (Auto) 7.9 H, Baso % (Auto) 0.7, Neut # (Auto) 4.5, Lymph # (Auto) 1.4, Living[place] # (Auto) 0.9, Eos # (Auto) 0.6, Baso # (Auto) 0.1, Immature Gran # (Auto) 0.0 ASSESSMENT: Please see below. 1. Generalized weakness 2. Dementia 3. History of subdural hematoma evacuation 4. Atrial fibrillation PLAN: 1. Discharge to [facility] 2. Resume home medications 3. Nystatin powder to infected are for one month 4. Bactroban to area for one week 5. CBC and CMP in one week 6. [facility] Plan and coordination of the patient's care discussed in the presence of Paint [employer] and nurse. SCRIBED BY: Sarah Beth ANDINOist scribed while in presence of service performed by Dr. Potts/Charlene Weeks APRN on 03/22/22 ([id number])
--- NOTE | 2022-03-23 10:40 | PN ---
DATE OF SERVICE: 03/20/22 SUBJECTIVE: The patient was seen and examined with the Nurse Practitioner. The patient's condition has improved with improvement in the appetite He seems to be more alert but confused off and on. Cardiovascular status stable. No evidence of CHF or coronary insufficiency. Neurological status otherwise normal except for mental status. TIME SPENT: More than 30 minutes. Plan and coordination of the patient's care discussed in the presence of nurse. FIOR
--- NOTE | 2022-03-23 14:22 | PN ---
DATE OF SERVICE: 03/18/22 SUBJECTIVE: The patient was brought to the emergency room by family because of patient's inability to get up from commode, he has spastic extremities more, also some confusion. The son is not able to take care of him, the patient's a few weeks ago. Dementia seems to have worsened since then. He recognized me. REVIEW OF SYSTEMS: CONSTITUTIONAL: No night sweats. No fatigue, malaise, lethargy. No fever or chills. HEENT: Eyes: No visual changes. No eye pain. No eye discharge. ENT: No runny nose. No epistaxis. No sinus pain. No sore throat. No odynophagia. No congestion. RESPIRATORY: Mild cough, no congestion. No hemoptysis. No shortness of breath. CARDIOVASCULAR: No angina symptoms. No CHF symptoms. No atypical chest pain for CAD. No palpitations. No PND. No orthopnea. GASTROINTESTINAL: No abdominal pain. No nausea or vomiting. No diarrhea or constipation. No hematemesis. No hematochezia. Appetite has been poor. GENITOURINARY: No urgency. No frequency. No dysuria. No hematuria. No obstructive symptoms. No discharge. No pain. No significant abnormal bleeding. MUSCULOSKELETAL: No musculoskeletal pain; no joint swelling. NEUROLOGICAL: No headache. No neck pain. No syncope. No seizures. No dizziness. PSYCHIATRIC: Not anxious. No depression. No suicidal thoughts. No homicidal thoughts. SKIN: No rash. No lesions. No wounds. ENDOCRINE: No unexplained weight loss. No weight gain. HEMATOLOGIC/LYMPHATIC: No anemia. No purpura. No petechiae. No prolonged or excessive bleeding. No palpable lymph nodes. PHYSICAL EXAMINATION: VITAL SIGNS: Temperature 98.2, pulse 80, respiratory rate 15, blood pressure 138/72 and pulse ox 94% on room air. HEENT: Head normocephalic, atraumatic. Eyes: Extraocular muscles are intact. Pupils are equal, round and reactive to light and accommodation. Ears: No lesions. Nose appeared normal. Throat: No exudate or erythema. NECK: Supple. No JVD, no carotid bruit. No lymphadenopathy or thyromegaly. LUNGS: Clear to auscultation. Percussion note normal. Chest symmetrical. HEART: S1, S2, no S3. No murmurs. No cyanosis or clubbing. No ascites. Pulses: Dorsalis pedis and posterior tibial pulses +1 bilaterally. ABDOMEN: Soft. Nontender. Bowel sounds active. No CVA tenderness. No mass felt. EXTREMITIES: No edema. Full range of motion of all extremities, equal. NEUROLOGIC: No focal deficit. Cranial nerves II through XII are grossly intact. No headache. No double vision. SKIN: Dry. Intact. Turgor - normal. Mucous membrane dry. LYMPHATIC: No palpable lymph nodes/no lymphedema. MUSCULOSKELETAL: Normal joints with no swelling. Muscle tone is normal. ASSESSMENT: 1. Worsening of dementia with dehydration and poor appetite. Mental status has been deteriorating for past several months. Mental status and overall health has diminished ever since the patient has subdural hematoma evacuated. PLAN: 1. Advised to give IV fluids 2. Continue all the medications 3. Continue to monitor telemetry 4. CBC and CMP TIME SPENT: More than 30 minutes. Plan and coordination of the patient's care discussed in the presence of nurse. ADDENDUM: The patient has atrial fibrillation. The patient when he was oriented to time, place and person also and who was present in the room. The patient declined to have any blood thinner like Eliquis, NOVEL blood thinners or Coumadin reason was the patient had fallen at home a couple of days ago. He has continued to fall that puts him on high risk. The patient already had one subdural hematoma from fall. This was discussed even in the past. No blood thinner for this patient especially NOVEL blood thinners and Coumadin. I agree with family and the patient. FIOR
--- NOTE | 2022-03-28 09:05 | HP ---
DATE OF SERVICE: 03/18/22 REASON FOR HOSPITALIZATION: Weakness, dehydration,worsening of dementia, inability to get up from laying position. HISTORY OF PRESENT ILLNESS: 86 year old white male was brought to the emergency room by the son who takes care of him. The patient when he sat down on commode the patient was unable to get up even with the help. The patient's overall status has been deteriorating after a few weeks ago. He has difficulty ambulating. He was seen and examined in the emergency room where he was noted to be mild dehydrated, weak. Overall labs were acceptable. The patient was somewhat confused. PAST MEDICAL HISTORY/PAST SURGICAL HISTORY: Bilateral sciatica Severe DJD spine Status post subdural hematoma surgery evacuation 05/[address] Coleman Atrial fibrillation/flutter Status post TAVR 2019 at [facility] congestive heart failure CKD stage III Peripheral arterial disease with claudication Aortic aneurysm repair Coronary bypass surgery Coronary artery disease with IA in 1981 Hypertension Dyslipidemia REVIEW OF SYSTEMS: CONSTITUTIONAL: No night sweats. No fatigue, malaise, lethargy. No fever or chills. HEENT: Eyes: No visual changes. No eye pain. No eye discharge. ENT: No runny nose. No epistaxis. No sinus pain. No sore throat. No odynophagia. No ear pain. No congestion. RESPIRATORY: No cough, no congestion. No hemoptysis. No shortness of breath. CARDIOVASCULAR: No angina symptoms. No CHF symptoms. No atypical chest pain for CAD. No palpitations. No PND. No orthopnea. GASTROINTESTINAL: No abdominal pain. No nausea or vomiting. No diarrhea or constipation. No hematemesis. No hematochezia. GENITOURINARY: No urgency. No frequency. No dysuria. No hematuria. No obstructive symptoms. No discharge. No pain. No significant abnormal bleeding. MUSCULOSKELETAL: No musculoskeletal pain. No joint swelling. No arthritis. NEUROLOGICAL: No headache. No neck pain. No syncope. No seizures. No dizziness. PSYCHIATRIC: Not anxious. No depression. No suicidal thoughts. No homicidal thoughts. SKIN: No rash. No lesions. No wounds. ENDOCRINE: No unexplained weight loss. No weight gain. HEMATOLOGIC/LYMPHATIC: No anemia. No purpura. No petechiae. No prolonged or excessive bleeding. No palpable lymph nodes. PERSONAL/FAMILY/SOCIAL HISTORY: MEDICATIONS: Fenofibrate Pravastatin Carvedilol Lasix Lexapro Spironolactone Tamsulosin Erythromycin ALLERGIES: None PHYSICAL EXAMINATION: GENERAL: I examined this patient in the emergency room before hospitalization. The patient is alert but confused, he doesn't know me at this time. Son is in the room. VITAL SIGNS: Temperature 98.2, pulse 70, respiratory rate 18,blood pressure 130/80 and pulse ox 95% on room air. HEENT: Head normocephalic, atraumatic. Eyes: Extraocular muscles are intact. Pupils are equal, round and reactive to light and accommodation. Ears: No lesions. Nose appeared normal. Throat: No exudate or erythema. NECK: Supple. No JVD, no carotid bruit. No lymphadenopathy or thyromegaly. LUNGS: Decreased breath sounds but clear to auscultation. Percussion note normal. Chest symmetrical. HEART: S1, S2, no S3. I/ systolic murmur. No cyanosis or clubbing. No ascites. Pulses: Dorsalis pedis and posterior tibial pulses +1 to +2 bilaterally. ABDOMEN: Soft. Nontender. Bowel sounds active. No CVA tenderness. No mass felt. EXTREMITIES: No edema. Full range of motion of all extremities, equal. NEUROLOGIC: No focal deficit. Cranial nerves II through XII are grossly intact. No headache, no double vision or headache. SKIN: Not dry. Intact. Turgor - normal. LYMPHATIC: No palpable lymph nodes/no lymphedema. MUSCULOSKELETAL: Normal joints with no swelling. Muscle tone is normal. ASSESSMENT: 1. Worsening of dementia with weakness 2. Mild dehydration 3. 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 Status post subdural hematoma surgery done in May 2021, Dr. Coleman 5. Atrial fib/flutter on Xarelto 6. Status post TAVR done in 2019 at [facility] 7. History of systolic CHF 8. History of chronic kidney disease stage III 9. Peripheral arterial disease with claudication 10. LA repair 11.Coronary bypass surgery with ejection fraction 45% 12.History of coronary artery disease with IA 1982 13. History of hypertensin 14. History of dyslipidemia PLAN: 1. IV fluids, watch for fluid overload 2. Routine telemetry orders 3. Serial EKGS 4. Cardiac markers 5. Daily CBC 6. PT/OT consult for possible ambulation 7. The patient's son is unable to take care of him at home. The patient is getting more demented and as problem with ambulation and getting out, activity of daily living. alf placement is going to be discussed. 8. We will check the U/A and cultures sensitivity 9. The patient's family especially the son doesn't want any further investigation or referral to any other places. The patient as mentioned above has multiple medical conditions and a lot of them are endstage. The patient is DNR. PROGNOSIS: Guarded TIME SPENT: More than 70 minutes. FIOR
== END 2022-03-22 12:50 | DRG 555 ==
LOC: ED 05:49 → MEDSURG A 10:54
PROVIDERS: ADMIT Internal Medicine; ATTEND Internal Medicine
DX: I48.92 Unspecified atrial flutter; F03.90 Unspecified dementia, unspecified severity, without behavioral disturbance, psychotic disturbance, mood disturbance, and anxiety; Z95.2 Presence of prosthetic heart valve; I62.00 Nontraumatic subdural hemorrhage, unspecified; I50.9 Heart failure, unspecified; R29.6 Repeated falls; E86.0 Dehydration; R63.0 Anorexia; I11.0 Hypertensive heart disease with heart failure; Z20.822 Contact with and (suspected) exposure to COVID-19; I48.91 Unspecified atrial fibrillation; I25.10 Atherosclerotic heart disease of native coronary artery without angina pectoris; K21.9 Gastro-esophageal reflux disease without esophagitis; Z79.899 Other long term (current) drug therapy; M51.36 Other intervertebral disc degeneration, lumbar region; R13.10 Dysphagia, unspecified; Z51.81 Encounter for therapeutic drug level monitoring; R33.8 Other retention of urine; N18.9 Chronic kidney disease, unspecified; Z86.79 Personal history of other diseases of the circulatory system; M62.81 Muscle weakness (generalized)